=== PATIENT | female | born 1935 | race Caucasian/White ===

== ENCOUNTER 2018-12-18 19:59 | Emergency (ER) | payer MEDICARE, BC ==
--- NOTE | 2018-12-18 21:40 | EDM.PDOC ---
ED HPI GENERAL MEDICAL PROBLEM - General Chief Complaint: General Stated Complaint: [facility] Time Seen by Provider: 12/18/18 20:10 Source of Information: Reports: Patient, EMS, Half-Way Records History Limitations: Reports: No Limitations - History of Present Illness INITIAL COMMENTS - FREE TEXT/NARRATIVE: The patient presents by [facility] from [facility] for an unresponsive episode. The patient was found slumped over in her wheel chair. She was brought back to her bed. The nurse could not feel a pulse so she started CPR. She did about 5 compressions and the patient woke up. She is alert. She is a little confused but she does have dementia. She does not remember what happened. She has no complaints. She has no headache, fever, chills, cough, chest pain, shortness of breath, abdominal pain, nausea or vomiting. She has no pain upon palpation. Onset: Sudden Duration: Minutes: Improves with: Reports: None Worsens with: Reports: None Associated Symptoms: Reports: No Other Symptoms - Related Data Allergies Allergy/AdvReac Type Severity Reaction Status Date / Time labetalol Allergy Cannot Verified 12/18/18 20:11 Remember nortriptyline Allergy Cannot Verified 12/18/18 20:11 Remember Sulfa (Sulfonamide Allergy Cannot Verified 12/18/18 20:11 Antibiotics) Remember Home Meds: Home Meds Cephalexin [Keflex] 500 mg PO TID #21 capsule 12/18/18 [Rx] Potassium Chloride 10 meq PO DAILY #30 capsule.er 12/18/18 [Rx] Past Medical History Cardiovascular History: Reports: Heart Failure, High Cholesterol, Hypertension, Other (See Below) Other Cardiovascular History: anemia Respiratory History: Reports: Pneumonia, Recurrent Gastrointestinal History: Reports: Chronic Constipation, GERD Genitourinary History: Reports: Chronic Renal Insuffiency, Other (See Below) Other Genitourinary History: acute cystitis Social & Family History - Tobacco Use Smoking Status *Q: Never Smoker Second Hand Smoke Exposure: No - Caffeine Use Caffeine Use: Reports: Coffee - Recreational Drug Use Recreational Drug Use: No ED ROS GENERAL - Review of Systems Review Of Systems: See Below Constitutional: Reports: No Symptoms HEENT: Reports: No Symptoms Respiratory: Reports: No Symptoms Cardiovascular: Reports: No Symptoms Endocrine: Reports: No Symptoms GI/Abdominal: Reports: No Symptoms : Reports: No Symptoms Musculoskeletal: Reports: No Symptoms ED EXAM, GENERAL - Physical Exam Exam: See Below Exam Limited By: No Limitations General Appearance: Alert, No Apparent Distress Ears: Normal External Exam Nose: Normal Inspection Head: Atraumatic, Normocephalic Neck: Normal Inspection, Supple, Non-Tender Respiratory/Chest: No Respiratory Distress, Lungs Clear, Normal Breath Sounds Cardiovascular: Regular Rate, Rhythm, No Edema, No Murmur GI/Abdominal: Soft, Non-Tender, No Organomegaly, No Mass Back Exam: Normal Inspection Extremities: Normal Inspection EKG INTERPRETATION EKG Date: 12/18/18 Time: 20:45 Rhythm: NSR Rate (Beats/Min): 83 Dawson: Normal P-Wave: Present QRS: Normal ST-T: Normal QT: Normal Course - Vital Signs Last Recorded V/S: Last Vital Signs Temp 97.1 F 12/18/18 20:06 Pulse 83 12/18/18 20:06 Resp 18 12/18/18 20:06 BP 95/70 12/18/18 20:06 Pulse Ox 98 12/18/18 20:06 - Orders/Labs/Meds Orders: Active Orders 24 hr Category Date Time Status Cardiac Monitoring [RC] . DIRECTED Care 12/18/18 20:20 Active EKG Documentation Completion [RC] STAT Care 12/18/18 20:20 Active Peripheral IV Care [RC] . DIRECTED Care 12/18/18 21:41 Active Chest 1V Frontal [CR] Stat Exams 12/18/18 20:20 Taken Sodium Chloride 0.9% [Saline Flush] Med 12/18/18 21:41 Active 10 ml FLUSH ASDIRECTED PRN Peripheral IV Insertion Adult [OM.PC] Routine Oth 12/18/18 21:41 Ordered Medication Orders Sodium Chloride (Saline Flush) 10 ml FLUSH ASDIRECTED PRN PRN Reason: Keep Vein Open Last Admin: 12/18/18 22:12 Dose: 10 ml Labs: Laboratory Tests 12/18/18 12/18/18 12/18/18 Range/Units 20:40 20:42 21:10 WBC 10.96 H (3.98-10.04) K/mm3 RBC 4.52 (3.98-5.22) M/mm3 Hgb 13.4 (11.2-15.7) gm/L Hct 41.3 (34.1-44.9) % MCV 91.4 (79.4-94.8) fl MCH 29.6 (25.6-32.2) pg MCHC 32.4 (32.2-35.5) g/dl RDW Std Deviation 59.1 H (36.4-46.3) fL Plt Count 274 (182-369) K/mm3 MPV 10.1 (9.4-12.3) fl Neut % (Auto) 75.9 H (34.0-71.1) % Lymph % (Auto) 12.0 L (19.3-51.7) % Simpson % (Auto) 8.2 (4.7-12.5) % Eos % (Auto) 3.2 (0.7-5.8) Baso % (Auto) 0.3 (0.1-1.2) % Neut # (Auto) 8.32 H (1.56-6.13) K/mm3 Lymph # (Auto) 1.32 (1.18-3.74) K/mm3 Simpson # (Auto) 0.90 H (0.24-0.36) K/mm3 Eos # (Auto) 0.35 (0.04-0.36) K/mm3 Baso # (Auto) 0.03 (0.01-0.08) K/mm3 Sodium 144 (136-145) mEq/L Potassium 2.8 L (3.5-5.1) mEq/L Chloride 104 (98-107) mEq/L Carbon Dioxide 23 (21-32) mEq/L Anion Gap 19.8 H (5-15) BUN 40 H (7-18) mg/dL Creatinine 2.3 H (0.55-1.02) mg/dL Est Cr Clr Drug Dosing 13.31 mL/min Estimated GFR (MDRD) 20 (>60) mL/min BUN/Creatinine Ratio 17.4 (14-18) Glucose 107 (83-115) mg/dL Calcium 10.0 (8.5-10.1) mg/dL Total Bilirubin 0.9 (0.2-1.0) mg/dL AST 28 (15-37) U/L ALT 17 (14-59) U/L Alkaline Phosphatase 157 H (46-116) U/L Troponin I < 0.017 (0.00-0.056) ng/mL Total Protein 7.7 (6.4-8.2) g/dl Albumin 3.3 L (3.4-5.0) g/dl Globulin 4.4 gm/dL Albumin/Globulin Ratio 0.8 L (1-2) Urine Color Lanie H (Yellow) Urine Appearance Turbid H (Clear) Urine pH 7.0 (5.0-8.0) Ur Specific [place] 1.015 (1.005-1.030) Urine Protein 2+ H (Negative) Urine Glucose (UA) Negative (Negative) Urine Ketones Trace H (Negative) Urine Occult Blood 2+ H (Negative) Urine Nitrite Negative (Negative) Urine Bilirubin 1+ H (Negative) Urine Urobilinogen 0.2 (0.2-1.0) Ur Leukocyte Esterase 3+ H (Negative) Urine RBC 5-10 H (0-5) /hpf Urine WBC >100 H (0-5) /hpf Ur Epithelial Cells 0-5 (0-5) /hpf Urine Bacteria Many H (FEW) /hpf Urine Mucus Not seen (FEW) /hpf Meds: Medications Generic Name Dose Route Start Last Admin Trade Name Freq PRN Reason Stop Dose Admin Sodium Chloride 10 ml 12/18/18 21:41 12/18/18 22:12 Saline Flush FLUSH 10 ml ASDIRECTED PRN Administration Keep Vein Open Discontinued Medications Generic Name Dose Route Start Last Admin Trade Name Freq PRN Reason Stop Dose Admin Ceftriaxone Sodium 2 gm/ 100 mls @ 200 mls/hr 12/18/18 21:42 12/18/18 22:12 Sodium Chloride IV 12/18/18 22:11 200 mls/hr ONETIME ONE Administration Sodium Chloride 500 mls @ 1,000 mls/hr 12/18/18 21:41 12/18/18 22:11 Normal Saline IV 12/18/18 22:10 1,000 mls/hr .BOLUS ONE Administration Potassium Chloride 10 meq 12/18/18 22:22 Klor-Con 10 PO 12/18/18 22:23 ONETIME ONE - Re-Assessments/Exams Free Text/Narrative Re-Assessment/Exam: 12/18/18 21:39 I ordered an EKG, CXR and labs. Her EKG shows a NSR with no acute changes. Her CXR looks good. 12/18/18 21:40 Her WBC was elevated at 10.96. Her K was low at 2.8. Her creatinine was elevated at 2.3. Her anion gap was elevated at 19.8. Her troponin was normal. I am waiting on her UA now. 12/18/18 22:24 Her UA shows a a UTI. I obtained a culture. She was also dehydrated. I ordered a 500mL bolus and rocephin 2 grams IV. I also gave her a dose of potassium here. I will get her on a prescription for keflex 3 times per day for the UTI and potassium. Departure - Departure Time of Disposition: 10:25 Disposition: DC/Tfer to [facility] 63 Condition: Good Clinical Impression: Unresponsive episode, Dehydration, Renal insufficiency, Hypokalemia UTI (urinary tract infection) Qualifiers: Urinary tract infection type: acute cystitis Hematuria presence: without hematuria Qualified Code(s): N30.00 - Acute cystitis without hematuria - Discharge Information *PRESCRIPTION DRUG MONITORING PROGRAM REVIEWED*: No *COPY OF PRESCRIPTION DRUG MONITORING REPORT IN PATIENT HUSSAIN: No Prescriptions: Cephalexin [Keflex] 500 mg PO TID #21 capsule Potassium Chloride 10 meq PO DAILY #30 capsule.er Referrals: Evaristo Tian MD [Primary Care Provider] - 1 Week Forms: ED Department Discharge Additional Instructions: Drink plenty of fluids. Take the keflex 3 times per day for 1 week. Take the potassium daily. Take the rest of your meds as prescribed. Follow up with Dr Tian next week. Please return if you are worse. - My Orders Last 24 Hours: My Active Orders 12/18/18 20:20 Cardiac Monitoring [RC] . DIRECTED EKG Documentation Completion [RC] STAT Chest 1V Frontal [CR] Stat 12/18/18 21:41 Peripheral IV Care [RC] . DIRECTED Sodium Chloride 0.9% [Saline Flush] 10 ml FLUSH ASDIRECTED PRN Peripheral IV Insertion Adult [OM.PC] Routine - Assessment/Plan Last 24 Hours: My Active Orders 12/18/18 20:20 Cardiac Monitoring [RC] . DIRECTED EKG Documentation Completion [RC] STAT Chest 1V Frontal [CR] Stat 12/18/18 21:41 Peripheral IV Care [RC] . DIRECTED Sodium Chloride 0.9% [Saline Flush] 10 ml FLUSH ASDIRECTED PRN Peripheral IV Insertion Adult [OM.PC] Routine
[2018-12-18] MEDS ORDERED: Sodium Chloride 0.9% 500 ML IV ONE (21:41)
[2018-12-18] MEDS ORDERED: Sodium Chloride 0.9% 10 ML Syringe FLUSH PRN (21:41)
[2018-12-18] MEDS ORDERED: cefTRIAXone 2 GM in Sodium Chloride 0.9% 100 ML IV ONE (21:42)
[2018-12-18] MEDS ORDERED: Potassium Chloride 10 MEQ Tab.ER PO ONE (22:22)
--- NOTE | 2018-12-19 07:31 | CR ---
Chest: Portable view of the chest was obtained. Comparison: No prior chest x-ray. Heart size and mediastinum are within normal limits for portable technique. Lungs are clear. Bony structures are osteopenic. Fracture is noted within the proximal humerus with mild amount of callus, please correlate as to the age of this finding. Impression: 1. Proximal right humeral fracture as described above. 2. Nothing acute is otherwise seen on portable chest x-ray. Diagnostic code #3
== END 2018-12-18 23:55 ==
LOC: JD.ED 19:59
DX: E87.6 Hypokalemia (principal); E86.0 Dehydration; R41.0 Disorientation, unspecified; N30.00 Acute cystitis without hematuria; N28.9 Disorder of kidney and ureter, unspecified; Z88.8 Allergy status to other drugs, medicaments and biological substances; Z88.2 Allergy status to sulfonamides; Z79.899 Other long term (current) drug therapy
CPT/HCPCS: 36415; 71045; 80053; 81001; 84484; 85025; 87086; 93005; 96361; 96365; 99285; A9270; J0696; J7030; J7040; 87088; 87186; 93010; 99284

== ENCOUNTER 2019-01-23 16:07 | Inpatient (IN) | payer MEDICARE, BC ==
[2019-01-23] MEDS ORDERED: Sodium Chloride 0.9% 1,000 ML IV ONE ×2 (16:18→17:53)
--- NOTE | 2019-01-23 16:18 | EDM.PDOC ---
ED HPI GENERAL MEDICAL PROBLEM - General Chief Complaint: Neurological Problem Stated Complaint: [facility] Time Seen by Provider: 01/23/19 16:18 Source of Information: Reports: Patient - History of Present Illness INITIAL COMMENTS - FREE TEXT/NARRATIVE: Patient is brought here today from [facility] for evaluation of altered mental status, she is really not responding. Has not eaten or drank anything throughout the week. Her PCP Dr. Tian ordered a chemistry panel which demonstrated a sodium of 167. Patient unable to provide any history. Patient's , daughter and granddaughter provided more information. Apparently she was living at home last fall and doing well. Had a fall in November 12, 2018, had a femur fracture. 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 Was unable to care for herself and [facility]. Since then has declined significantly sign she has lucid moments but for the most part is quite demented. Over the past week she has not wanted to eat or drink anything. Transfers by Arlene lift. - Related Data Allergies Allergy/AdvReac Type Severity Reaction Status Date / Time labetalol Allergy Cannot Verified 12/18/18 20:11 Remember nortriptyline Allergy Cannot Verified 12/18/18 20:11 Remember Sulfa (Sulfonamide Allergy Cannot Verified 12/18/18 20:11 Antibiotics) Remember Home Meds: Home Meds Acetaminophen [Tylenol] 50 mg PO Q6H PRN 01/23/19 [History] Apixaban [Eliquis] 2.5 mg PO BID 01/23/19 [History] Bisacodyl [Dulcolax] 10 mg RC DAILY PRN 01/23/19 [History] Cyanocobalamin (Vitamin B-12) [Vitamin B-12] 1,000 mcg PO DAILY 01/23/19 [ History] Dronabinol [Marinol] 5 mg PO BID 01/23/19 [History] Lisinopril 5 mg PO DAILY 01/23/19 [History] Mirtazapine [Remeron] 15 mg PO BEDTIME 01/23/19 [History] Ondansetron [Zofran ODT] 4 mg SL Q6H PRN 01/23/19 [History] Potassium Chloride [Klor-Con 10] 10 meq PO DAILY 01/23/19 [History] Sennosides/Docusate Sodium [Senna Plus Tablet] 1 tab PO BID 01/23/19 [History] Sertraline [Zoloft] 25 mg PO BEDTIME 01/23/19 [History] Triamcinolone Acetonide [Triamcinolone Acetonide 0.1% Crm] 1 appful TOP BID PRN 01/23/19 [History] Ubidecarenone [Coenzyme Q10] 100 mg PO DAILY 01/23/19 [History] Past Medical History Cardiovascular History: Reports: Heart Failure, High Cholesterol, Hypertension, Other (See Below) Other Cardiovascular History: anemia Respiratory History: Reports: Pneumonia, Recurrent Gastrointestinal History: Reports: Chronic Constipation, GERD Genitourinary History: Reports: Chronic Renal Insuffiency, Other (See Below) Other Genitourinary History: acute cystitis Social & Family History - Caffeine Use Caffeine Use: Reports: Coffee ED ROS GENERAL - Review of Systems Review Of Systems: ROS reveals no pertinent complaints other than HPI. (Patient not responding to questions, ROS limited) Constitutional: Reports: Weakness, Fatigue, Decreased Appetite. Denies: Fever, Chills - Physical Exam Exam: See Below Exam Limited By: Altered Mental Status (Patient lethargic) General Appearance: Lethargic Throat/Mouth: Other (Dry mucous membranes) Head Exam: Atraumatic, Normocephalic Neck: Normal Inspection, Supple, Non-Tender. No: Lymphadenopathy (L), Lymphadenopathy (R) Respiratory/Chest: No Respiratory Distress, Lungs Clear, Other (Shallow breath sounds) Cardiovascular: Regular Rate, Rhythm, No Murmur GI/Abdominal: Soft, Abnormal Bowel Sounds (Hypoactive) Neuro Exam (Abbreviated): Unresponsive (Responds to pain) Skin Exam: Warm, Dry EKG INTERPRETATION EKG Date: 01/23/19 Time: 16:41 Rhythm: NSR Rate (Beats/Min): 107 Course - Vital Signs Last Recorded V/S: Last Vital Signs Temp 97.4 F 01/23/19 16:17 Pulse 116 H 01/23/19 16:17 Resp 18 01/23/19 16:17 BP 88/65 L 01/23/19 16:17 Pulse Ox 95 01/23/19 16:17 - Orders/Labs/Meds Orders: Active Orders 24 hr Category Date Time Status Patient Status [ADT] Routine ADT 01/23/19 18:46 Active Insert Duque Catheter [Insert Urinary Catheter] [OM.PC] Care 01/23/19 16:25 Ordered Stat Urinary Catheter Assessment [RC] ASDIRECTED Care 01/23/19 17:11 Active Chest 1V Frontal [CR] Stat Exams 01/23/19 16:33 Taken LACTATE DEHYDROGENASE,LDH [CHEM] Stat Lab 01/23/19 16:25 Received Medication Orders Lactated Ringer's (Ringers, Lactated) 1,000 mls @ 999 mls/hr IV ASDIRECTED FRANKLIN Stop: 01/23/19 21:33 Lactated Ringer's (Ringers, Lactated) 1,000 mls @ 150 mls/hr IV ASDIRECTED FRANKLIN Ceftriaxone Sodium 2 gm/ (Sodium Chloride) 100 mls @ 200 mls/hr IV Q24H FRANKLIN Labs: Laboratory Tests 01/23/19 01/23/19 01/23/19 Range/Units 16:25 16:25 16:25 WBC 22.45 H (3.98-10.04) K/mm3 RBC 5.55 H (3.98-5.22) M/mm3 Hgb 16.3 H (11.2-15.7) gm/L Hct 51.9 H (34.1-44.9) % MCV 93.5 (79.4-94.8) fl MCH 29.4 (25.6-32.2) pg MCHC 31.4 L (32.2-35.5) g/dl RDW Std Deviation 62.9 H (36.4-46.3) fL Plt Count 297 (182-369) K/mm3 MPV 11.8 (9.4-12.3) fl Neutrophils % (Manual) 84 H (40-60) % Band Neutrophils % 0 (0-10) % Lymphocytes % (Manual) 7 L (20-40) % Atypical Lymphs % 0 % Monocytes % (Manual) 9 (2-10) % Eosinophils % (Manual) 0 L (0.7-5.8) % Basophils % (Manual) 0 L (0.1-1.2) Platelet Estimate Adequate Polychromasia Few Anisocytosis 1+ slight Ovalocytes Few RBC Morph Comment Not Reportable Sodium 165 H* (136-145) mEq/L Potassium 3.6 (3.5-5.1) mEq/L Chloride 125 H (98-107) mEq/L Carbon Dioxide 24 (21-32) mEq/L Anion Gap 19.6 H (5-15) BUN 70 H (7-18) mg/dL Creatinine 3.1 H (0.55-1.02) mg/dL Est Cr Clr Drug Dosing 11.37 mL/min Estimated GFR (MDRD) 14 (>60) mL/min BUN/Creatinine Ratio 22.6 H (14-18) Glucose 176 H (83-115) mg/dL Calcium 10.8 H (8.5-10.1) mg/dL Magnesium 2.3 (1.8-2.4) mg/dl Total Bilirubin 1.2 H (0.2-1.0) mg/dL AST 123 H (15-37) U/L ALT 63 H (14-59) U/L Alkaline Phosphatase 132 H (46-116) U/L Troponin I 0.084 H* (0.00-0.056) ng/mL Total Protein 8.4 H (6.4-8.2) g/dl Albumin 3.6 (3.4-5.0) g/dl Globulin 4.8 gm/dL Albumin/Globulin Ratio 0.8 L (1-2) Urine Color (Yellow) Urine Appearance (Clear) Urine pH (5.0-8.0) Ur Specific [place] (1.005-1.030) Urine Protein (Negative) Urine Glucose (UA) (Negative) Urine Ketones (Negative) Urine Occult Blood (Negative) Urine Nitrite (Negative) Urine Bilirubin (Negative) Urine Urobilinogen (0.2-1.0) Ur Leukocyte Esterase (Negative) Urine RBC (0-5) /hpf Urine WBC (0-5) /hpf Urine WBC Clumps (NOT SEEN) /hpf Ur Epithelial Cells (0-5) /hpf Amorphous Sediment (NOT SEEN) /hpf Urine Bacteria (FEW) /hpf Urine Mucus (FEW) /hpf 01/23/19 Range/Units 16:30 WBC (3.98-10.04) K/mm3 RBC (3.98-5.22) M/mm3 Hgb (11.2-15.7) gm/L Hct (34.1-44.9) % MCV (79.4-94.8) fl MCH (25.6-32.2) pg MCHC (32.2-35.5) g/dl RDW Std Deviation (36.4-46.3) fL Plt Count (182-369) K/mm3 MPV (9.4-12.3) fl Neutrophils % (Manual) (40-60) % Band Neutrophils % (0-10) % Lymphocytes % (Manual) (20-40) % Atypical Lymphs % % Monocytes % (Manual) (2-10) % Eosinophils % (Manual) (0.7-5.8) % Basophils % (Manual) (0.1-1.2) Platelet Estimate Polychromasia Anisocytosis Ovalocytes RBC Morph Comment Sodium (136-145) mEq/L Potassium (3.5-5.1) mEq/L Chloride (98-107) mEq/L Carbon Dioxide (21-32) mEq/L Anion Gap (5-15) BUN (7-18) mg/dL Creatinine (0.55-1.02) mg/dL Est Cr Clr Drug Dosing mL/min Estimated GFR (MDRD) (>60) mL/min BUN/Creatinine Ratio (14-18) Glucose (83-115) mg/dL Calcium (8.5-10.1) mg/dL Magnesium (1.8-2.4) mg/dl Total Bilirubin (0.2-1.0) mg/dL AST (15-37) U/L ALT (14-59) U/L Alkaline Phosphatase (46-116) U/L Troponin I (0.00-0.056) ng/mL Total Protein (6.4-8.2) g/dl Albumin (3.4-5.0) g/dl Globulin gm/dL Albumin/Globulin Ratio (1-2) Urine Color Dark yellow (Yellow) Urine Appearance Turbid H (Clear) Urine pH 8.5 H (5.0-8.0) Ur Specific [place] 1.020 (1.005-1.030) Urine Protein 3+ H (Negative) Urine Glucose (UA) Negative (Negative) Urine Ketones 1+ H (Negative) Urine Occult Blood 3+ H (Negative) Urine Nitrite Negative (Negative) Urine Bilirubin 2+ H (Negative) Urine Urobilinogen 1.0 (0.2-1.0) Ur Leukocyte Esterase 3+ H (Negative) Urine RBC 30-40 H (0-5) /hpf Urine WBC 30-40 H (0-5) /hpf Urine WBC Clumps Few (NOT SEEN) /hpf Ur Epithelial Cells 5-10 H (0-5) /hpf Amorphous Sediment Many H (NOT SEEN) /hpf Urine Bacteria Many H (FEW) /hpf Urine Mucus Few (FEW) /hpf Meds: Medications Generic Name Dose Route Start Last Admin Trade Name Freq PRN Reason Stop Dose Admin Lactated Ringer's 1,000 mls @ 999 mls/hr 01/23/19 19:33 Ringers, Lactated IV 01/23/19 21:33 ASDIRECTED FRANKLIN Lactated Ringer's 1,000 mls @ 150 mls/hr 01/23/19 21:33 Ringers, Lactated IV ASDIRECTED FRANKLIN Ceftriaxone Sodium 2 gm/ 100 mls @ 200 mls/hr 01/24/19 15:00 Sodium Chloride IV Q24H FRANKLIN Discontinued Medications Generic Name Dose Route Start Last Admin Trade Name Freq PRN Reason Stop Dose Admin Sodium Chloride 1,000 mls @ 999 mls/hr 01/23/19 16:18 01/23/19 16:41 Normal Saline IV 01/23/19 17:18 999 mls/hr ONETIME ONE Administration Sodium Chloride 1,000 mls @ 999 mls/hr 01/23/19 17:53 01/23/19 18:01 Normal Saline IV 01/23/19 18:53 999 mls/hr ONETIME ONE Administration Ceftriaxone Sodium 2 gm/ 100 mls @ 200 mls/hr 01/23/19 18:19 01/23/19 18:39 Sodium Chloride IV 01/23/19 18:48 200 mls/hr ONETIME ONE Administration Lactated Ringer's 1,000 mls @ 999 mls/hr 01/23/19 18:33 01/23/19 19:57 Ringers, Lactated IV 01/23/19 19:33 999 mls/hr .BOLUS ONE Administration - Re-Assessments/Exams Free Text/Narrative Re-Assessment/Exam: Head CT demonstrates senescent changes. Opacified upper left maxillary sinus. No acute findings on CXR. Significant urinary tract infection. WBC 22,450. Lactate is pending, there is some problems with the lab machine. Creatinine of 3.1 GFR 14 BUN of 70. Sodium is 165. Anion gap 19.6. liver enzymes are elevated. Troponin 0.084. Discussed admission with Dr. Baptiste/hospitalist who agreed agrees to admit the patient. Patient is DNR/DNI. 01/23/19 20:34 01/23/19 20:45 Departure - Departure Time of Disposition: 18:46 Disposition: Admitted As Inpatient 66 Condition: Poor Clinical Impression: Dehydration, Hypernatremia, Altered mental status, Dementia UTI (urinary tract infection) Qualifiers: Urinary tract infection type: acute cystitis Hematuria presence: without hematuria Qualified Code(s): N30.00 - Acute cystitis without hematuria - Discharge Information - My Orders Last 24 Hours: My Active Orders 01/23/19 16:25 Insert Duque Catheter [Insert Urinary Catheter] [OM.PC] Stat LACTATE DEHYDROGENASE,LDH [CHEM] Stat 01/23/19 16:33 Chest 1V Frontal [CR] Stat 01/23/19 17:11 Urinary Catheter Assessment [RC] ASDIRECTED 01/23/19 18:46 Patient Status [ADT] Routine - Assessment/Plan Last 24 Hours: My Active Orders 01/23/19 16:25 Insert Duque Catheter [Insert Urinary Catheter] [OM.PC] Stat LACTATE DEHYDROGENASE,LDH [CHEM] Stat 01/23/19 16:33 Chest 1V Frontal [CR] Stat 01/23/19 17:11 Urinary Catheter Assessment [RC] ASDIRECTED 01/23/19 18:46 Patient Status [ADT] Routine
[2019-01-23] MEDS ORDERED: cefTRIAXone 2 GM Vial IVPUSH ONE (18:08)
--- NOTE | 2019-01-23 18:10 | CT ---
Head CT Technique: Multiple axial sections through the brain were obtained. Intravenous contrast was not utilized. Comparison: No prior intracranial imaging is available. Findings: Ventricles along with basal cisterns and sulci over convexities are moderately prominent. Diminished density is noted within the periventricular and subcortical white matter which is compatible with small vessel ischemic demyelination change. Minimal basal ganglia calcification is incidentally noted. Atherosclerotic calcification is noted within the carotid siphon. No evidence of intracranial hemorrhage. No midline shift or mass effect is seen. Bone window settings were reviewed which shows opacified upper left maxillary sinus. Other visualized sinuses are clear. No acute calvarial abnormality is appreciated. Impression: 1. Diffuse senescent change as noted above. 2. Opacified upper left maxillary sinus which is most likely chronic, please correlate that patient has no symptoms of acute sinusitis. 3. Nothing acute is otherwise seen on noncontrast head CT exam. Diagnostic code #3
[2019-01-23] MEDS ORDERED: cefTRIAXone 2 GM in Sodium Chloride 0.9% 100 ML IV ONE (18:19)
[2019-01-23] MEDS ORDERED: Lactated Ringers 1,000 ML IV ONE (18:33)
--- NOTE | 2019-01-23 19:16 | PCM.HP ---
H&P History of Present Illness - General Date of Service: 01/23/19 Admit Problem/Dx: Admission Diagnosis/Problem Admission Diagnosis/Problem Altered mental status Source of Information: EMS Notes Reviewed, Family, Provider History Limitations: Reports: Altered Mental Status - History of Present Illness Initial Comments - Free Text/Narative: 83 year old female with a history of dementia presents after over a week long episode of decreased oral intake. At the time of presentation, she is unable to open her eyes, follow simple commands. The history was provided by the ED provider and her family present, spouse and daughter. The patient had orthopedic surgery for her right upper and lower extremities. Since that time it is reported that she has never returned to her baseline mental functioning. She has profoundly abnormal electrolytes and is in acute renal failure. The patient will be admitted to [facility] with telemetry, she is a DNR/DNI. Onset of Symptoms: Reports: Gradual Symptom Onset Date: 11/26/18 Duration of Symptoms: Reports: Week(s):, Getting Worse Location: Reports: Generalized Improves with: Reports: Medication Worsens with: Reports: Other (not eating or drinking) Associated Symptoms: Reports: Weakness - Related Data Allergies/Adverse Reactions: Allergies Allergy/AdvReac Type Severity Reaction Status Date / Time labetalol Allergy Cannot Verified 12/18/18 20:11 Remember nortriptyline Allergy Cannot Verified 12/18/18 20:11 Remember Sulfa (Sulfonamide Allergy Cannot Verified 12/18/18 20:11 Antibiotics) Remember Home Medications: Home Meds Acetaminophen [Tylenol] 50 mg PO Q6H PRN 01/23/19 [History] Apixaban [Eliquis] 2.5 mg PO BID 01/23/19 [History] Bisacodyl [Dulcolax] 10 mg RC DAILY PRN 01/23/19 [History] Cyanocobalamin (Vitamin B-12) [Vitamin B-12] 1,000 mcg PO DAILY 01/23/19 [ History] Dronabinol [Marinol] 5 mg PO BID 01/23/19 [History] Lisinopril 5 mg PO DAILY 01/23/19 [History] Mirtazapine [Remeron] 15 mg PO BEDTIME 01/23/19 [History] Ondansetron [Zofran ODT] 4 mg SL Q6H PRN 01/23/19 [History] Potassium Chloride [Klor-Con 10] 10 meq PO DAILY 01/23/19 [History] Sennosides/Docusate Sodium [Senna Plus Tablet] 1 tab PO BID 01/23/19 [History] Sertraline [Zoloft] 25 mg PO BEDTIME 01/23/19 [History] Triamcinolone Acetonide [Triamcinolone Acetonide 0.1% Crm] 1 appful TOP BID PRN 01/23/19 [History] Ubidecarenone [Coenzyme Q10] 100 mg PO DAILY 01/23/19 [History] Past Medical History Cardiovascular History: Reports: Heart Failure, High Cholesterol, Hypertension, Other (See Below) Other Cardiovascular History: anemia Respiratory History: Reports: Pneumonia, Recurrent Gastrointestinal History: Reports: Chronic Constipation, GERD Other Gastrointestinal History: anorexia-failure to thrive Genitourinary History: Reports: Chronic Renal Insuffiency, Other (See Below) Other Genitourinary History: acute cystitis Musculoskeletal History: Reports: Other (See Below) Other Musculoskeletal History: fractured humerous;fractured right femur with pins and plate Psychiatric History: Reports: Dementia Social & Family History - Tobacco Use Smoking Status *Q: Never Smoker - Caffeine Use Caffeine Use: Reports: Coffee - Recreational Drug Use Recreational Drug Use: No H&P Review of Systems - Review of Systems: Review Of Systems: See Below General: Reports: Weakness HEENT: Reports: No Symptoms Pulmonary: Reports: No Symptoms Cardiovascular: Reports: No Symptoms Gastrointestinal: Reports: Anorexia Genitourinary: Reports: No Symptoms Musculoskeletal: Reports: No Symptoms Psychiatric: Reports: Other (lethargic) Neurological: Reports: No Symptoms Hematologic/Lymphatic: Reports: No Symptoms Immunologic: Reports: No Symptoms Exam - Exam Exam: See Below - Vital Signs Vital Signs: Last Vital Signs Temp 36.3 C 01/23/19 16:17 Pulse 116 H 01/23/19 16:17 Resp 18 01/23/19 16:17 BP 88/65 L 01/23/19 16:17 Pulse Ox 95 01/23/19 16:17 Weight: 68.039 kg - Exam General: Obtunded HEENT: Pupils Equal, Pupils Reactive Neck: Trachea Midline Lungs: Normal Respiratory Effort, Decreased Breath Sounds Cardiovascular: Regular Rate, Irregular Rhythm GI/Abdominal Exam: Soft, No Organomegaly, Abnormal Bowel Sounds (Female) Exam: Deferred Rectal (Female) Exam: Deferred Back Exam: Normal Inspection Extremities: Normal Inspection, Slow Capillary Refill Skin: Cool Neurological: Cranial Nerves Intact Neuro Extensive - Mental Status: Other (obtunded) Neuro Extensive - Motor, Sensory, Reflexes: CN II-XII Intact Psychiatric: Other (lethargy) - Patient Data Lab Results Last 24 hrs: Laboratory Results - last 24 hr 01/23/19 01/23/19 01/23/19 Range/Units 16:25 16:25 16:25 WBC 22.45 H (3.98-10.04) K/mm3 RBC 5.55 H (3.98-5.22) M/mm3 Hgb 16.3 H (11.2-15.7) gm/L Hct 51.9 H (34.1-44.9) % MCV 93.5 (79.4-94.8) fl MCH 29.4 (25.6-32.2) pg MCHC 31.4 L (32.2-35.5) g/dl RDW Std Deviation 62.9 H (36.4-46.3) fL Plt Count 297 (182-369) K/mm3 MPV 11.8 (9.4-12.3) fl Neutrophils % (Manual) 84 H (40-60) % Band Neutrophils % 0 (0-10) % Lymphocytes % (Manual) 7 L (20-40) % Atypical Lymphs % 0 % Monocytes % (Manual) 9 (2-10) % Eosinophils % (Manual) 0 L (0.7-5.8) % Basophils % (Manual) 0 L (0.1-1.2) Platelet Estimate Adequate Polychromasia Few Anisocytosis 1+ slight Ovalocytes Few RBC Morph Comment Not Reportable Sodium 165 H* (136-145) mEq/L Potassium 3.6 (3.5-5.1) mEq/L Chloride 125 H (98-107) mEq/L Carbon Dioxide 24 (21-32) mEq/L Anion Gap 19.6 H (5-15) BUN 70 H (7-18) mg/dL Creatinine 3.1 H (0.55-1.02) mg/dL Est Cr Clr Drug Dosing 11.37 mL/min Estimated GFR (MDRD) 14 (>60) mL/min BUN/Creatinine Ratio 22.6 H (14-18) Glucose 176 H (83-115) mg/dL Calcium 10.8 H (8.5-10.1) mg/dL Magnesium 2.3 (1.8-2.4) mg/dl Total Bilirubin 1.2 H (0.2-1.0) mg/dL AST 123 H (15-37) U/L ALT 63 H (14-59) U/L Alkaline Phosphatase 132 H (46-116) U/L Troponin I 0.084 H* (0.00-0.056) ng/mL Total Protein 8.4 H (6.4-8.2) g/dl Albumin 3.6 (3.4-5.0) g/dl Globulin 4.8 gm/dL Albumin/Globulin Ratio 0.8 L (1-2) Urine Color (Yellow) Urine Appearance (Clear) Urine pH (5.0-8.0) Ur Specific [place] (1.005-1.030) Urine Protein (Negative) Urine Glucose (UA) (Negative) Urine Ketones (Negative) Urine Occult Blood (Negative) Urine Nitrite (Negative) Urine Bilirubin (Negative) Urine Urobilinogen (0.2-1.0) Ur Leukocyte Esterase (Negative) Urine RBC (0-5) /hpf Urine WBC (0-5) /hpf Urine WBC Clumps (NOT SEEN) /hpf Ur Epithelial Cells (0-5) /hpf Amorphous Sediment (NOT SEEN) /hpf Urine Bacteria (FEW) /hpf Urine Mucus (FEW) /hpf 01/23/19 Range/Units 16:30 WBC (3.98-10.04) K/mm3 RBC (3.98-5.22) M/mm3 Hgb (11.2-15.7) gm/L Hct (34.1-44.9) % MCV (79.4-94.8) fl MCH (25.6-32.2) pg MCHC (32.2-35.5) g/dl RDW Std Deviation (36.4-46.3) fL Plt Count (182-369) K/mm3 MPV (9.4-12.3) fl Neutrophils % (Manual) (40-60) % Band Neutrophils % (0-10) % Lymphocytes % (Manual) (20-40) % Atypical Lymphs % % Monocytes % (Manual) (2-10) % Eosinophils % (Manual) (0.7-5.8) % Basophils % (Manual) (0.1-1.2) Platelet Estimate Polychromasia Anisocytosis Ovalocytes RBC Morph Comment Sodium (136-145) mEq/L Potassium (3.5-5.1) mEq/L Chloride (98-107) mEq/L Carbon Dioxide (21-32) mEq/L Anion Gap (5-15) BUN (7-18) mg/dL Creatinine (0.55-1.02) mg/dL Est Cr Clr Drug Dosing mL/min Estimated GFR (MDRD) (>60) mL/min BUN/Creatinine Ratio (14-18) Glucose (83-115) mg/dL Calcium (8.5-10.1) mg/dL Magnesium (1.8-2.4) mg/dl Total Bilirubin (0.2-1.0) mg/dL AST (15-37) U/L ALT (14-59) U/L Alkaline Phosphatase (46-116) U/L Troponin I (0.00-0.056) ng/mL Total Protein (6.4-8.2) g/dl Albumin (3.4-5.0) g/dl Globulin gm/dL Albumin/Globulin Ratio (1-2) Urine Color Dark yellow (Yellow) Urine Appearance Turbid H (Clear) Urine pH 8.5 H (5.0-8.0) Ur Specific [place] 1.020 (1.005-1.030) Urine Protein 3+ H (Negative) Urine Glucose (UA) Negative (Negative) Urine Ketones 1+ H (Negative) Urine Occult Blood 3+ H (Negative) Urine Nitrite Negative (Negative) Urine Bilirubin 2+ H (Negative) Urine Urobilinogen 1.0 (0.2-1.0) Ur Leukocyte Esterase 3+ H (Negative) Urine RBC 30-40 H (0-5) /hpf Urine WBC 30-40 H (0-5) /hpf Urine WBC Clumps Few (NOT SEEN) /hpf Ur Epithelial Cells 5-10 H (0-5) /hpf Amorphous Sediment Many H (NOT SEEN) /hpf Urine Bacteria Many H (FEW) /hpf Urine Mucus Few (FEW) /hpf Result Diagrams: 01/24/19 06:01 01/24/19 06:01 - Problem List (1) Altered mental status SNOMED Code(s): 356502082 ICD Code: R41.82 - ALTERED MENTAL STATUS, UNSPECIFIED Status: Acute Current Visit: Yes (2) Dehydration SNOMED Code(s): 32403131 ICD Code: E86.0 - DEHYDRATION Status: Acute Current Visit: Yes (3) Dementia SNOMED Code(s): 00288938 ICD Code: F03.90 - UNSPECIFIED DEMENTIA WITHOUT BEHAVIORAL DISTURBANCE Status: Acute Current Visit: Yes (4) Hypernatremia SNOMED Code(s): 30629140 ICD Code: E87.0 - HYPEROSMOLALITY AND HYPERNATREMIA Status: Acute Current Visit: Yes (5) UTI (urinary tract infection) SNOMED Code(s): 52450327 ICD Code: N39.0 - URINARY TRACT INFECTION, SITE NOT SPECIFIED Status: Acute Current Visit: Yes Qualifiers: Urinary tract infection type: acute cystitis Hematuria presence: without hematuria Qualified Code(s): N30.00 - Acute cystitis without hematuria (6) Hypokalemia SNOMED Code(s): 19703745 ICD Code: E87.6 - HYPOKALEMIA Status: Acute Current Visit: No (7) Renal insufficiency SNOMED Code(s): 874532254, 458800469 ICD Code: N28.9 - DISORDER OF KIDNEY AND URETER, UNSPECIFIED Status: Acute Current Visit: No (8) Unresponsive episode SNOMED Code(s): 163724803 ICD Code: R41.89 - OTH SYMPTOMS AND SIGNS W COGNITIVE FUNCTIONS AND AWARENESS Status: Acute Current Visit: No Problem List Initiated/Reviewed/Updated: Yes Orders Last 24hrs: Active Orders 24 hr Category Date Time Status Admission Status [Patient Status] [ADT] Routine ADT 01/23/19 18:47 Active Patient Status [ADT] Routine ADT 01/23/19 18:46 Active EKG 12 Lead [EKG Documentation Completion] [RC] STAT Care 01/23/19 16:32 Active Insert Duque Catheter [Insert Urinary Catheter] [OM.PC] Care 01/23/19 16:25 Ordered Stat Urinary Catheter Assessment [RC] ASDIRECTED Care 01/23/19 17:11 Active Chest 1V Frontal [CR] Stat Exams 01/23/19 16:33 Taken LACTATE DEHYDROGENASE,LDH [CHEM] Stat Lab 01/23/19 16:25 Received Lactated Ringers [Ringers, Lactated] 1,000 ml Med 01/23/19 18:33 Active IV .BOLUS Medication Orders Lactated Ringer's (Ringers, Lactated) 1,000 mls @ 999 mls/hr IV .BOLUS ONE Stop: 01/23/19 19:33 Assessment/Plan Comment:: Impression: Dementia with AMS Failure to thrive Dehydration, ARF History of CKD Hypernatremia AUTI Leukocytosis Chronic HTN HLD CHF A Fib Anemia GERD Plan: IVF IV ATBs Hold po meds Daily Labs Correct electrolytes Consult CM re: Comfort care cf [facility] w/ Telemetry DNR/DNI code status
[2019-01-23] MEDS ORDERED: Lactated Ringers 1,000 ML IV SCH (19:33)
[2019-01-23] MEDS: Lactated Ringers 1,000 ML IV SCH (22:17)
[2019-01-23] MEDS ORDERED: Acetaminophen 650 MG Supp RECTAL ONE (22:22)
[2019-01-24] MEDS: Acetaminophen 650 MG Supp RECTAL PRN ×2 (02:52→20:26)
[2019-01-24] MEDS: Lactated Ringers 1,000 ML IV SCH (05:07)
[2019-01-24] MEDS ORDERED: Metoprolol Tartrate 5 MG/5 ML SDV ONE (05:56)
[2019-01-24] MEDS ORDERED: Diltiazem 125 MG in Sodium Chloride 0.9% 100 ML IV SCH (06:15)
[2019-01-24] MEDS ORDERED: Diltiazem 125 MG/25 ML SDV ONE (06:18)
[2019-01-24] MEDS ORDERED: Metoprolol Tartrate 5 MG/5 ML SDV IVPUSH PRN (06:39)
[2019-01-24] MEDS ORDERED: Magnesium Sulfate/Water 4 GM in Premix Bag 1 BAG IV ONE (07:37)
--- NOTE | 2019-01-24 07:49 | CR ---
Chest: Portable view of the chest was obtained. Comparison: Prior chest x-ray of 01/23/19. Heart size is within normal limits. Moderately large hiatal hernia is noted. Tortuous thoracic aorta is seen. Central lung markings are slightly increased believed to be related to technique. Lungs are felt to be free of acute parenchymal densities. Old surgical neck fracture is noted within the right humerus. Impression: 1. Incidental findings. Nothing acute is appreciated. Diagnostic code #2
[2019-01-24] MEDS ORDERED: Dextrose 5%-0.9% NaCl 1,000 ML IV SCH (08:00)
[2019-01-24] MEDS: Dextrose 5% in Water 1,000 ML IV SCH ×2 (08:28→18:03)
[2019-01-24] MEDS ORDERED: Morphine 2 MG/ML Syringe IVPUSH ONE (09:07)
[2019-01-24] MEDS: fentaNYL 12 MCG/HR Transdermal Patch TRDERM SCH (09:18)
--- NOTE | 2019-01-24 10:41 | PCM.PN ---
- General Info Date of Service: 01/24/19 Subjective Update: Patient appears uncomfortable; discussed code status, she is now, DNR/DNI- Comfort care, family meeting was 20 minutes. Patient had rapid response, was moved to the ICU for A Fib with RVR and started on Cardizem drip.. Functional Status: Reports: Urinating - Review of Systems General: Reports: Weakness HEENT: Reports: No Symptoms Pulmonary: Reports: No Symptoms Cardiovascular: Reports: No Symptoms Gastrointestinal: Reports: No Symptoms Genitourinary: Reports: No Symptoms Musculoskeletal: Reports: No Symptoms Skin: Reports: No Symptoms Neurological: Reports: No Symptoms Psychiatric: Reports: No Symptoms - Patient Data Vitals - Most Recent: Last Vital Signs Temp 36.1 C 01/24/19 08:06 Pulse 87 01/24/19 10:00 Resp 17 01/24/19 09:00 BP 93/47 L 01/24/19 10:00 Pulse Ox 100 01/24/19 09:00 Weight - Most Recent: 65.136 kg I&O - Last 24 Hours: Intake & Output 01/23/19 01/24/19 01/24/19 22:59 06:59 14:59 Intake Total 1999 686 Balance 1999 686 Lab Results Last 24 Hours: Laboratory Results - last 24 hr 01/23/19 01/23/19 01/23/19 Range/Units 16:25 16:25 16:25 WBC 22.45 H (3.98-10.04) K/mm3 RBC 5.55 H (3.98-5.22) M/mm3 Hgb 16.3 H (11.2-15.7) gm/L Hct 51.9 H (34.1-44.9) % MCV 93.5 (79.4-94.8) fl MCH 29.4 (25.6-32.2) pg MCHC 31.4 L (32.2-35.5) g/dl RDW Std Deviation 62.9 H (36.4-46.3) fL Plt Count 297 (182-369) K/mm3 MPV 11.8 (9.4-12.3) fl Neut % (Auto) (34.0-71.1) % Lymph % (Auto) (19.3-51.7) % [place] % (Auto) (4.7-12.5) % Eos % (Auto) (0.7-5.8) Baso % (Auto) (0.1-1.2) % Neut # (Auto) (1.56-6.13) K/mm3 Lymph # (Auto) (1.18-3.74) K/mm3 [place] # (Auto) (0.24-0.36) K/mm3 Eos # (Auto) (0.04-0.36) K/mm3 Baso # (Auto) (0.01-0.08) K/mm3 Neutrophils % (Manual) 84 H (40-60) % Band Neutrophils % 0 (0-10) % Lymphocytes % (Manual) 7 L (20-40) % Atypical Lymphs % 0 % Monocytes % (Manual) 9 (2-10) % Eosinophils % (Manual) 0 L (0.7-5.8) % Basophils % (Manual) 0 L (0.1-1.2) Manual Slide Review Platelet Estimate Adequate Polychromasia Few Anisocytosis 1+ slight Ovalocytes Few RBC Morph Comment Not Reportable Sodium 165 H* (136-145) mEq/L Potassium 3.6 (3.5-5.1) mEq/L Chloride 125 H (98-107) mEq/L Carbon Dioxide 24 (21-32) mEq/L Anion Gap 19.6 H (5-15) BUN 70 H (7-18) mg/dL Creatinine 3.1 H (0.55-1.02) mg/dL Est Cr Clr Drug Dosing 11.37 mL/min Estimated GFR (MDRD) 14 (>60) mL/min BUN/Creatinine Ratio 22.6 H (14-18) Glucose 176 H (83-115) mg/dL Lactic Acid (0.4-2.0) mmol/L Calcium 10.8 H (8.5-10.1) mg/dL Magnesium 2.3 (1.8-2.4) mg/dl Total Bilirubin 1.2 H (0.2-1.0) mg/dL AST 123 H (15-37) U/L ALT 63 H (14-59) U/L Alkaline Phosphatase 132 H (46-116) U/L Troponin I 0.084 H* (0.00-0.056) ng/mL C-Reactive Protein (<1.0) mg/dL Total Protein 8.4 H (6.4-8.2) g/dl Albumin 3.6 (3.4-5.0) g/dl Globulin 4.8 gm/dL Albumin/Globulin Ratio 0.8 L (1-2) Urine Color (Yellow) Urine Appearance (Clear) Urine pH (5.0-8.0) Ur Specific [place] (1.005-1.030) Urine Protein (Negative) Urine Glucose (UA) (Negative) Urine Ketones (Negative) Urine Occult Blood (Negative) Urine Nitrite (Negative) Urine Bilirubin (Negative) Urine Urobilinogen (0.2-1.0) Ur Leukocyte Esterase (Negative) Urine RBC (0-5) /hpf Urine WBC (0-5) /hpf Urine WBC Clumps (NOT SEEN) /hpf Ur Epithelial Cells (0-5) /hpf Amorphous Sediment (NOT SEEN) /hpf Urine Bacteria (FEW) /hpf Urine Mucus (FEW) /hpf MRSA (PCR) 01/23/19 01/23/19 01/24/19 Range/Units 16:30 23:39 06:01 WBC 20.62 H (3.98-10.04) K/mm3 RBC 4.66 (3.98-5.22) M/mm3 Hgb 13.9 (11.2-15.7) gm/L Hct 44.3 (34.1-44.9) % MCV 95.1 H (79.4-94.8) fl MCH 29.8 (25.6-32.2) pg MCHC 31.4 L (32.2-35.5) g/dl RDW Std Deviation 63.3 H (36.4-46.3) fL Plt Count 124 L (182-369) K/mm3 MPV 12.0 (9.4-12.3) fl Neut % (Auto) 82.6 H (34.0-71.1) % Lymph % (Auto) 8.0 L (19.3-51.7) % [place] % (Auto) 8.9 (4.7-12.5) % Eos % (Auto) 0 L (0.7-5.8) Baso % (Auto) 0.1 (0.1-1.2) % Neut # (Auto) 17.02 H (1.56-6.13) K/mm3 Lymph # (Auto) 1.65 (1.18-3.74) K/mm3 [place] # (Auto) 1.83 H (0.24-0.36) K/mm3 Eos # (Auto) 0.01 L (0.04-0.36) K/mm3 Baso # (Auto) 0.03 (0.01-0.08) K/mm3 Neutrophils % (Manual) (40-60) % Band Neutrophils % (0-10) % Lymphocytes % (Manual) (20-40) % Atypical Lymphs % % Monocytes % (Manual) (2-10) % Eosinophils % (Manual) (0.7-5.8) % Basophils % (Manual) (0.1-1.2) Manual Slide Review Abnormal smear Platelet Estimate Polychromasia Anisocytosis Ovalocytes RBC Morph Comment Sodium (136-145) mEq/L Potassium (3.5-5.1) mEq/L Chloride (98-107) mEq/L Carbon Dioxide (21-32) mEq/L Anion Gap (5-15) BUN (7-18) mg/dL Creatinine (0.55-1.02) mg/dL Est Cr Clr Drug Dosing mL/min Estimated GFR (MDRD) (>60) mL/min BUN/Creatinine Ratio (14-18) Glucose (83-115) mg/dL Lactic Acid (0.4-2.0) mmol/L Calcium (8.5-10.1) mg/dL Magnesium (1.8-2.4) mg/dl Total Bilirubin (0.2-1.0) mg/dL AST (15-37) U/L ALT (14-59) U/L Alkaline Phosphatase (46-116) U/L Troponin I (0.00-0.056) ng/mL C-Reactive Protein (<1.0) mg/dL Total Protein (6.4-8.2) g/dl Albumin (3.4-5.0) g/dl Globulin gm/dL Albumin/Globulin Ratio (1-2) Urine Color Dark yellow (Yellow) Urine Appearance Turbid H (Clear) Urine pH 8.5 H (5.0-8.0) Ur Specific [place] 1.020 (1.005-1.030) Urine Protein 3+ H (Negative) Urine Glucose (UA) Negative (Negative) Urine Ketones 1+ H (Negative) Urine Occult Blood 3+ H (Negative) Urine Nitrite Negative (Negative) Urine Bilirubin 2+ H (Negative) Urine Urobilinogen 1.0 (0.2-1.0) Ur Leukocyte Esterase 3+ H (Negative) Urine RBC 30-40 H (0-5) /hpf Urine WBC 30-40 H (0-5) /hpf Urine WBC Clumps Few (NOT SEEN) /hpf Ur Epithelial Cells 5-10 H (0-5) /hpf Amorphous Sediment Many H (NOT SEEN) /hpf Urine Bacteria Many H (FEW) /hpf Urine Mucus Few (FEW) /hpf MRSA (PCR) Negative 01/24/19 01/24/19 Range/Units 06:01 06:51 WBC (3.98-10.04) K/mm3 RBC (3.98-5.22) M/mm3 Hgb (11.2-15.7) gm/L Hct (34.1-44.9) % MCV (79.4-94.8) fl MCH (25.6-32.2) pg MCHC (32.2-35.5) g/dl RDW Std Deviation (36.4-46.3) fL Plt Count (182-369) K/mm3 MPV (9.4-12.3) fl Neut % (Auto) (34.0-71.1) % Lymph % (Auto) (19.3-51.7) % [place] % (Auto) (4.7-12.5) % Eos % (Auto) (0.7-5.8) Baso % (Auto) (0.1-1.2) % Neut # (Auto) (1.56-6.13) K/mm3 Lymph # (Auto) (1.18-3.74) K/mm3 [place] # (Auto) (0.24-0.36) K/mm3 Eos # (Auto) (0.04-0.36) K/mm3 Baso # (Auto) (0.01-0.08) K/mm3 Neutrophils % (Manual) (40-60) % Band Neutrophils % (0-10) % Lymphocytes % (Manual) (20-40) % Atypical Lymphs % % Monocytes % (Manual) (2-10) % Eosinophils % (Manual) (0.7-5.8) % Basophils % (Manual) (0.1-1.2) Manual Slide Review Platelet Estimate Polychromasia Anisocytosis Ovalocytes RBC Morph Comment Sodium 162 H* (136-145) mEq/L Potassium 3.2 L (3.5-5.1) mEq/L Chloride 127 H (98-107) mEq/L Carbon Dioxide 21 (21-32) mEq/L Anion Gap 17.2 H (5-15) BUN 58 H (7-18) mg/dL Creatinine 2.3 H (0.55-1.02) mg/dL Est Cr Clr Drug Dosing 14.66 mL/min Estimated GFR (MDRD) 20 (>60) mL/min BUN/Creatinine Ratio 25.2 H (14-18) Glucose 110 (83-115) mg/dL Lactic Acid 2.2 H (0.4-2.0) mmol/L Calcium 8.8 (8.5-10.1) mg/dL Magnesium 1.6 L (1.8-2.4) mg/dl Total Bilirubin (0.2-1.0) mg/dL AST (15-37) U/L ALT (14-59) U/L Alkaline Phosphatase (46-116) U/L Troponin I 0.094 H* (0.00-0.056) ng/mL C-Reactive Protein 12.3 H* (<1.0) mg/dL Total Protein (6.4-8.2) g/dl Albumin (3.4-5.0) g/dl Globulin gm/dL Albumin/Globulin Ratio (1-2) Urine Color (Yellow) Urine Appearance (Clear) Urine pH (5.0-8.0) Ur Specific [place] (1.005-1.030) Urine Protein (Negative) Urine Glucose (UA) (Negative) Urine Ketones (Negative) Urine Occult Blood (Negative) Urine Nitrite (Negative) Urine Bilirubin (Negative) Urine Urobilinogen (0.2-1.0) Ur Leukocyte Esterase (Negative) Urine RBC (0-5) /hpf Urine WBC (0-5) /hpf Urine WBC Clumps (NOT SEEN) /hpf Ur Epithelial Cells (0-5) /hpf Amorphous Sediment (NOT SEEN) /hpf Urine Bacteria (FEW) /hpf Urine Mucus (FEW) /hpf MRSA (PCR) [place] Results Last 24 Hours: Microbiology 01/24/19 09:30 Influenza Type A Antigen Screen - Final Nasal, Unspecified NEGATIVE INFLUENZA A VIRUS AG Influenza Type B Antigen Screen - Final NEGATIVE INFLUENZA B VIRUS AG 01/23/19 16:25 Urine Culture - Preliminary Urine, Catheterized Gram Negative Rods 01/23/19 23:20 Anaerobic Blood Culture - Final Blood - Venous Med Orders - Current: Current Medications Acetaminophen (Tylenol) 600 mg RECTAL Q4H PRN PRN Reason: Pain/Fever Last Admin: 01/24/19 02:52 Dose: 600 mg Fentanyl (Duragesic) 12 mcg TRDERM Q72H [facility] Last Admin: 01/24/19 09:18 Dose: 12 mcg Lactated Ringer's (Ringers, Lactated) 1,000 mls @ 150 mls/hr IV ASDIRECTED [facility] Last Infusion: 01/24/19 07:36 Dose: 999 mls/hr Ceftriaxone Sodium 2 gm/ (Sodium Chloride) 100 mls @ 200 mls/hr IV Q24H [facility] Diltiazem HCl 125 mg/ Sodium (Chloride) 125 mls @ 5 mls/hr IV TITRATE [facility]; Protocol Last Admin: 01/24/19 06:22 Dose: 10 mg/hr, 10 mls/hr Dextrose/Water (Dextrose 5% In Water) 1,000 mls @ 100 mls/hr IV ASDIRECTED [facility] Last Admin: 01/24/19 08:28 Dose: 100 mls/hr Metoprolol Tartrate (Lopressor) 5 mg IVPUSH Q6H PRN PRN Reason: Tachycardia Miscellaneous Information (Remove Patch) 1 ea TRDERM Q72H [facility] Discontinued Medications Acetaminophen (Tylenol) 600 mg RECTAL NOW ONE Stop: 01/23/19 22:23 Last Admin: 01/23/19 22:28 Dose: 600 mg Diltiazem HCl (Diltiazem) Confirm Administered Dose 125 mg .ROUTE .STK-MED ONE Stop: 01/24/19 06:19 Last Admin: 01/24/19 06:21 Dose: Not Given Sodium Chloride (Normal Saline) 1,000 mls @ 999 mls/hr IV ONETIME ONE Stop: 01/23/19 17:18 Last Admin: 01/23/19 16:41 Dose: 999 mls/hr Sodium Chloride (Normal Saline) 1,000 mls @ 999 mls/hr IV ONETIME ONE Stop: 01/23/19 18:53 Last Admin: 01/23/19 18:01 Dose: 999 mls/hr Ceftriaxone Sodium 2 gm/ (Sodium Chloride) 100 mls @ 200 mls/hr IV ONETIME ONE Stop: 01/23/19 18:48 Last Admin: 01/23/19 18:39 Dose: 200 mls/hr Lactated Ringer's (Ringers, Lactated) 1,000 mls @ 999 mls/hr IV .BOLUS ONE Stop: 01/23/19 19:33 Last Admin: 01/23/19 19:57 Dose: 999 mls/hr Lactated Ringer's (Ringers, Lactated) 1,000 mls @ 999 mls/hr IV ASDIRECTED [facility] Stop: 01/23/19 21:33 Last Admin: 01/23/19 21:40 Dose: 999 mls/hr Magnesium Sulfate 4 gm/ Premix 100 mls @ 25 mls/hr IV ONETIME ONE Stop: 01/24/19 07:38 Last Admin: 01/24/19 08:27 Dose: 25 mls/hr Metoprolol Tartrate (Lopressor) Confirm Administered Dose 5 mg .ROUTE .STK-MED ONE Stop: 01/24/19 05:57 Last Admin: 01/24/19 05:58 Dose: 5 mg Morphine Sulfate (Morphine) 1 mg IVPUSH ONETIME ONE Stop: 01/24/19 09:08 Last Admin: 01/24/19 09:17 Dose: 1 mg - Exam Quality Assessment: Supplemental Oxygen, DVT Prophylaxis General: Mild Distress HEENT: Pupils Equal, Pupils Reactive Neck: Trachea Midline Lungs: Clear to Auscultation, Normal Respiratory Effort Cardiovascular: Regular Rate, Irregular Rhythm, Tachycardia GI/Abdominal Exam: Non-Tender, No Organomegaly, No Distention, No Abnormal Bruit (Female) Exam: Deferred Back Exam: Normal Inspection Extremities: Normal Range of Motion, No Pedal Edema, Normal Capillary Refill Skin: Cool Neurological: No New Focal Deficit Psy/Mental Status: Other (lethargic) - Problem List Review Problem List Initiated/Reviewed/Updated: Yes - My Orders Last 24 Hours: My Active Orders 01/23/19 21:33 Lactated Ringers [Ringers, Lactated] 1,000 ml IV ASDIRECTED 01/24/19 00:04 CULTURE BLOOD [BC] Stat Blood Culture x2 Reflex Set [OM.PC] Stat 01/24/19 02:40 Acetaminophen [Tylenol] 600 mg RECTAL Q4H PRN 01/24/19 06:13 Patient Status [ADT] Routine 01/24/19 06:15 Diltiazem 125 mg Sodium Chloride 0.9% [Normal Saline] 100 ml IV TITRATE 01/24/19 06:39 Metoprolol Tartrate [Lopressor] 5 mg IVPUSH Q6H PRN 01/24/19 08:00 Dextrose 5% in Water 1,000 ml IV ASDIRECTED EKG 12 Lead [EK] Routine 01/24/19 08:50 CULTURE BLOOD [BC] Stat 01/24/19 09:00 CULTURE URINE [RM] Routine 01/24/19 10:00 fentaNYL [Duragesic] 12 mcg TRDERM Q72H 01/24/19 15:00 cefTRIAXone [Rocephin] 2 gm Sodium Chloride 0.9% [Normal Saline] 100 ml IV Q24H 01/25/19 05:00 BMP [BASIC METABOLIC PANEL,BMP] [CHEM] DAILY CBC WITH AUTO DIFF [HEME] DAILY CRP [C-REACTIVE PROTEIN] [CHEM] DAILY LACTIC ACID [CHEM] DAILY MAGNESIUM [CHEM] DAILY 01/26/19 05:00 BMP [BASIC METABOLIC PANEL,BMP] [CHEM] DAILY CBC WITH AUTO DIFF [HEME] DAILY CRP [C-REACTIVE PROTEIN] [CHEM] DAILY LACTIC ACID [CHEM] DAILY MAGNESIUM [CHEM] DAILY 01/27/19 05:00 BMP [BASIC METABOLIC PANEL,BMP] [CHEM] DAILY CBC WITH AUTO DIFF [HEME] DAILY CRP [C-REACTIVE PROTEIN] [CHEM] DAILY LACTIC ACID [CHEM] DAILY MAGNESIUM [CHEM] DAILY 01/27/19 10:00 Remove Patch 1 ea TRDERM Q72H 01/28/19 05:00 BMP [BASIC METABOLIC PANEL,BMP] [CHEM] DAILY CBC WITH AUTO DIFF [HEME] DAILY CRP [C-REACTIVE PROTEIN] [CHEM] DAILY LACTIC ACID [CHEM] DAILY MAGNESIUM [CHEM] DAILY - Plan Plan:: Impression: Dementia with AMS Failure to thrive Dehydration, ARF History of CKD Hypernatremia-->slow improvement, will change IVF to D5W has received 4 liters of IVF with current maintenance rate AUTI Leukocytosis A Fib with RVR-->started on cardizem drip Chronic HTN HLD CHF A Fib Anemia GERD Plan: IVF IV ATBs Hold po meds Daily Labs Correct electrolytes Consult CM/SWre: Comfort care cf Hospice [place] w/ Telemetry DNR/DNI code status-->now Comfort care, wish to discuss Hospice care with CM/SW on 01/26/19. Anticipate return to [facility] on Saturday as HC.
[2019-01-24] MEDS: cefTRIAXone 2 GM in Sodium Chloride 0.9% 100 ML IV SCH (14:58)
--- NOTE | 2019-01-24 15:18 | CR ---
Chest: Portable view of the chest was obtained. Comparison: Prior chest x-ray of 12/18/18. Probable hiatal hernia is present behind the heart. Heart does not appear enlarged. Tortuous thoracic aorta seen. Small granuloma noted within the left upper lung. Lungs otherwise are clear. Previous fracture is noted within the proximal right humerus. Impression: 1. Nothing acute is seen on portable chest x-ray. Diagnostic code #2
[2019-01-24] MEDS: Morphine 2 MG/ML Syringe IVPUSH PRN (18:02)
[2019-01-24] MEDS: Potassium Chloride 10 MEQ in Premix Bag 1 BAG IV SCH ×2 (20:21→21:44)
--- NOTE | 2019-01-25 09:52 | PCM.PN ---
- General Info Date of Service: 01/25/19 Subjective Update: Family meeting answered at bedside; probable DC on 01/27/19. Will need discussion on best choice of care for patient ie comfort care cf hospice at [place]. Functional Status: Reports: Pain Controlled (improved), Tolerating Diet (NPO) - Review of Systems General: Reports: No Symptoms HEENT: Reports: No Symptoms Pulmonary: Reports: No Symptoms Cardiovascular: Reports: No Symptoms Gastrointestinal: Reports: No Symptoms Genitourinary: Reports: No Symptoms Musculoskeletal: Reports: No Symptoms Skin: Reports: No Symptoms Neurological: Reports: No Symptoms Psychiatric: Reports: No Symptoms - Patient Data Vitals - Most Recent: Last Vital Signs Temp 37.0 C 01/25/19 04:02 Pulse 78 01/25/19 04:02 Resp 14 01/25/19 04:02 BP 95/62 01/25/19 04:02 Pulse Ox 97 01/25/19 04:02 Weight - Most Recent: 65.136 kg Lab Results Last 24 Hours: Laboratory Results - last 24 hr 01/25/19 01/25/19 01/25/19 Range/Units 06:10 06:10 06:10 WBC 16.49 H (3.98-10.04) K/mm3 RBC 3.98 (3.98-5.22) M/mm3 Hgb 12 (11.2-15.7) gm/L Hct 37.7 (34.1-44.9) % MCV 94.7 (79.4-94.8) fl MCH 30.2 (25.6-32.2) pg MCHC 31.8 L (32.2-35.5) g/dl RDW Std Deviation 60.8 H (36.4-46.3) fL Plt Count 126 L (182-369) K/mm3 MPV 11.4 (9.4-12.3) fl Neut % (Auto) 80.6 H (34.0-71.1) % Lymph % (Auto) 11.0 L (19.3-51.7) % [place] % (Auto) 4.9 (4.7-12.5) % Eos % (Auto) 3.0 (0.7-5.8) Baso % (Auto) 0.1 (0.1-1.2) % Neut # (Auto) 13.29 H (1.56-6.13) K/mm3 Lymph # (Auto) 1.81 (1.18-3.74) K/mm3 [place] # (Auto) 0.81 H (0.24-0.36) K/mm3 Eos # (Auto) 0.49 H (0.04-0.36) K/mm3 Baso # (Auto) 0.02 (0.01-0.08) K/mm3 Manual Slide Review Abnormal smear Sodium 150 H (136-145) mEq/L Potassium 3.0 L (3.5-5.1) mEq/L Chloride 118 H (98-107) mEq/L Carbon Dioxide 22 (21-32) mEq/L Anion Gap 13.0 (5-15) BUN 47 H (7-18) mg/dL Creatinine 1.8 H (0.55-1.02) mg/dL Est Cr Clr Drug Dosing 18.73 mL/min Estimated GFR (MDRD) 27 (>60) mL/min BUN/Creatinine Ratio 26.1 H (14-18) Glucose 118 H (83-115) mg/dL Lactic Acid 2.6 H (0.4-2.0) mmol/L Calcium 8.3 L (8.5-10.1) mg/dL Magnesium 2.2 (1.8-2.4) mg/dl C-Reactive Protein 18.6 H* (<1.0) mg/dL [place] Results Last 24 Hours: Microbiology 01/24/19 08:50 Aerobic Blood Culture - Preliminary Blood - Venous - Lab Draw NO GROWTH AFTER 1 DAY Anaerobic Blood Culture - Final 01/23/19 23:20 Aerobic Blood Culture - Preliminary Blood - Venous NO GROWTH AFTER 1 DAY Anaerobic Blood Culture - Final 01/24/19 09:30 Influenza Type A Antigen Screen - Final Nasal, Unspecified NEGATIVE INFLUENZA A VIRUS AG Influenza Type B Antigen Screen - Final NEGATIVE INFLUENZA B VIRUS AG 01/23/19 16:25 Urine Culture - Preliminary Urine, Catheterized Gram Negative Rods Med Orders - Current: Current Medications Acetaminophen (Tylenol) 600 mg RECTAL Q4H PRN PRN Reason: Pain/Fever Last Admin: 01/24/19 20:26 Dose: 600 mg Fentanyl (Duragesic) 12 mcg TRDERM Q72H [facility] Last Admin: 01/24/19 09:18 Dose: 12 mcg Ceftriaxone Sodium 2 gm/ (Sodium Chloride) 100 mls @ 200 mls/hr IV Q24H [facility] Last Admin: 01/24/19 14:58 Dose: 200 mls/hr Dextrose/Water (Dextrose 5% In Water) 1,000 mls @ 100 mls/hr IV ASDIRECTED [facility] Last Admin: 01/24/19 18:03 Dose: 100 mls/hr Lorazepam (Ativan) 0.25 mg IVPUSH Q6H PRN PRN Reason: Anxiety Metoprolol Tartrate (Lopressor) 5 mg IVPUSH Q6H PRN PRN Reason: Tachycardia Miscellaneous Information (Remove Patch) 1 ea TRDERM Q72H [facility] Morphine Sulfate (Morphine) 1 mg IVPUSH Q2H PRN PRN Reason: Pain (moderate 4-6) Last Admin: 01/24/19 18:02 Dose: 1 mg Discontinued Medications Acetaminophen (Tylenol) 600 mg RECTAL NOW ONE Stop: 01/23/19 22:23 Last Admin: 01/23/19 22:28 Dose: 600 mg Diltiazem HCl (Diltiazem) Confirm Administered Dose 125 mg .ROUTE .STK-MED ONE Stop: 01/24/19 06:19 Last Admin: 01/24/19 06:21 Dose: Not Given Sodium Chloride (Normal Saline) 1,000 mls @ 999 mls/hr IV ONETIME ONE Stop: 01/23/19 17:18 Last Admin: 01/23/19 16:41 Dose: 999 mls/hr Sodium Chloride (Normal Saline) 1,000 mls @ 999 mls/hr IV ONETIME ONE Stop: 01/23/19 18:53 Last Admin: 01/23/19 18:01 Dose: 999 mls/hr Ceftriaxone Sodium 2 gm/ (Sodium Chloride) 100 mls @ 200 mls/hr IV ONETIME ONE Stop: 01/23/19 18:48 Last Admin: 01/23/19 18:39 Dose: 200 mls/hr Lactated Ringer's (Ringers, Lactated) 1,000 mls @ 999 mls/hr IV .BOLUS ONE Stop: 01/23/19 19:33 Last Admin: 01/23/19 19:57 Dose: 999 mls/hr Lactated Ringer's (Ringers, Lactated) 1,000 mls @ 999 mls/hr IV ASDIRECTED [facility] Stop: 01/23/19 21:33 Last Admin: 01/23/19 21:40 Dose: 999 mls/hr Lactated Ringer's (Ringers, Lactated) 1,000 mls @ 150 mls/hr IV ASDIRECTED [facility] Last Infusion: 01/24/19 07:36 Dose: 999 mls/hr Diltiazem HCl 125 mg/ Sodium (Chloride) 125 mls @ 5 mls/hr IV TITRATE [facility]; Protocol Last Titration: 01/24/19 11:21 Dose: 0 mg/hr, 0 mls/hr Magnesium Sulfate 4 gm/ Premix 100 mls @ 25 mls/hr IV ONETIME ONE Stop: 01/24/19 07:38 Last Admin: 01/24/19 08:27 Dose: 25 mls/hr Potassium Chloride 10 meq/ (Premix) 100 mls @ 100 mls/hr IV Q1H [facility] Stop: 01/24/19 21:59 Last Admin: 01/24/19 21:44 Dose: 100 mls/hr Metoprolol Tartrate (Lopressor) Confirm Administered Dose 5 mg .ROUTE .STK-MED ONE Stop: 01/24/19 05:57 Last Admin: 01/24/19 05:58 Dose: 5 mg Morphine Sulfate (Morphine) 1 mg IVPUSH ONETIME ONE Stop: 01/24/19 09:08 Last Admin: 01/24/19 09:17 Dose: 1 mg - Exam Quality Assessment: DVT Prophylaxis General: Sedated HEENT: Pupils Equal, Pupils Reactive Neck: Trachea Midline, No JVD Lungs: Normal Respiratory Effort, Decreased Breath Sounds Cardiovascular: Regular Rate GI/Abdominal Exam: Soft, Non-Tender, No Organomegaly, No Distention, Abnormal Bowel Sounds (Female) Exam: Deferred Back Exam: Normal Inspection Extremities: Slow Capillary Refill Skin: Cool Neurological: No New Focal Deficit - Problem List Review Problem List Initiated/Reviewed/Updated: Yes - My Orders Last 24 Hours: My Active Orders 01/24/19 09:00 CULTURE URINE [RM] Routine 01/24/19 10:00 fentaNYL [Duragesic] 12 mcg TRDERM Q72H 01/24/19 12:26 Code Status [Resuscitation Status] Routine 01/24/19 13:30 Patient Status [ADT] Routine 01/24/19 14:34 LORazepam [Ativan] 0.25 mg IVPUSH Q6H PRN Morphine 1 mg IVPUSH Q2H PRN 01/24/19 15:00 cefTRIAXone [Rocephin] 2 gm Sodium Chloride 0.9% [Normal Saline] 100 ml IV Q24H 01/24/19 19:55 Oxygen Therapy [RC] PRN 01/25/19 12:10 LACTIC ACID [CHEM] Routine 01/26/19 05:00 BMP [BASIC METABOLIC PANEL,BMP] [CHEM] DAILY CBC WITH AUTO DIFF [HEME] DAILY CRP [C-REACTIVE PROTEIN] [CHEM] DAILY LACTIC ACID [CHEM] DAILY MAGNESIUM [CHEM] DAILY 01/27/19 05:00 BMP [BASIC METABOLIC PANEL,BMP] [CHEM] DAILY CBC WITH AUTO DIFF [HEME] DAILY CRP [C-REACTIVE PROTEIN] [CHEM] DAILY LACTIC ACID [CHEM] DAILY MAGNESIUM [CHEM] DAILY 01/27/19 10:00 Remove Patch 1 ea TRDERM Q72H 01/28/19 05:00 BMP [BASIC METABOLIC PANEL,BMP] [CHEM] DAILY CBC WITH AUTO DIFF [HEME] DAILY CRP [C-REACTIVE PROTEIN] [CHEM] DAILY LACTIC ACID [CHEM] DAILY MAGNESIUM [CHEM] DAILY - Plan Plan:: Impression: Dementia with AMS Failure to thrive Dehydration, ARF History of CKD Hypernatremia-->slow improvement, will change IVF to D5W has received 4 liters of IVF with current maintenance rate AUTI Leukocytosis A Fib with RVR-->started on cardizem drip Chronic HTN HLD CHF A Fib Anemia GERD Plan: IVF IV ATBs Hold po meds Daily Labs Correct electrolytes Consult CM/SWre: [facility] Hospice MS w/ Telemetry DNR/DNI code status-->now [facility], wish to discuss Hospice care with CM/SW on 01/26/19. Anticipate return to [facility] on Saturday as HC.
[2019-01-25] MEDS ORDERED: Dextrose 5% in Water 1,000 ML IV SCH (10:00)
[2019-01-25] MEDS ORDERED: Potassium Chloride 20 MEQ in Dextrose 5% in Water 1,000 ML IV SCH ×2 (10:00)
[2019-01-25] MEDS: Morphine 2 MG/ML Syringe IVPUSH PRN ×2 (10:37→20:34)
[2019-01-25] MEDS: Potassium Chloride 10 MEQ in Premix Bag 1 BAG IV SCH ×2 (11:34→14:05)
[2019-01-25] MEDS ORDERED: Lactated Ringers 1,000 ML IV ONE (14:09)
[2019-01-25] MEDS: cefTRIAXone 2 GM in Sodium Chloride 0.9% 100 ML IV SCH (14:45)
[2019-01-25] MEDS: Dextrose 5% in Water 1,000 ML IV SCH (16:49)
[2019-01-26] MEDS: Morphine 2 MG/ML Syringe IVPUSH PRN ×5 (00:12→18:24)
[2019-01-26] MEDS ORDERED: Dextrose 5% in Water 1,000 ML IV SCH (02:00)
[2019-01-26] MEDS: Dextrose 5% in Water 1,000 ML IV SCH ×5 (02:02→22:18)
[2019-01-26] MEDS ORDERED: Magnesium Sulfate/Water 4 GM in Premix Bag 1 BAG IV ONE (09:59)
--- NOTE | 2019-01-26 10:01 | PCM.PN ---
- General Info Date of Service: 01/26/19 Functional Status: Reports: Pain Controlled, Tolerating Diet (NPO), Urinating - Review of Systems General: Reports: No Symptoms HEENT: Reports: No Symptoms Pulmonary: Reports: No Symptoms Cardiovascular: Reports: No Symptoms Gastrointestinal: Reports: No Symptoms Genitourinary: Reports: No Symptoms Musculoskeletal: Reports: No Symptoms Skin: Reports: No Symptoms Neurological: Reports: No Symptoms Psychiatric: Reports: No Symptoms - Patient Data Vitals - Most Recent: Last Vital Signs Temp 37.3 C 01/26/19 07:57 Pulse 97 01/26/19 07:57 Resp 20 01/26/19 07:57 BP 132/109 H 01/26/19 07:57 Pulse Ox 92 L 01/26/19 07:57 Weight - Most Recent: 70.534 kg I&O - Last 24 Hours: Intake & Output 01/25/19 01/26/19 01/26/19 22:59 06:59 14:59 Intake Total 2226 1875 Output Total 650 Balance 2226 1225 Lab Results Last 24 Hours: Laboratory Results - last 24 hr 01/25/19 01/26/19 01/26/19 Range/Units 12:19 05:18 05:18 WBC 9.85 (3.98-10.04) K/mm3 RBC 3.91 L (3.98-5.22) M/mm3 Hgb 11.5 (11.2-15.7) gm/L Hct 36.0 (34.1-44.9) % MCV 92.1 (79.4-94.8) fl MCH 29.4 (25.6-32.2) pg MCHC 31.9 L (32.2-35.5) g/dl RDW Std Deviation 56.0 H (36.4-46.3) fL Plt Count 131 L (182-369) K/mm3 MPV 11.7 (9.4-12.3) fl Neut % (Auto) 76.8 H (34.0-71.1) % Lymph % (Auto) 11.4 L (19.3-51.7) % [place] % (Auto) 6.4 (4.7-12.5) % Eos % (Auto) 4.5 (0.7-5.8) Baso % (Auto) 0.2 (0.1-1.2) % Neut # (Auto) 7.57 H (1.56-6.13) K/mm3 Lymph # (Auto) 1.12 L (1.18-3.74) K/mm3 [place] # (Auto) 0.63 H (0.24-0.36) K/mm3 Eos # (Auto) 0.44 H (0.04-0.36) K/mm3 Baso # (Auto) 0.02 (0.01-0.08) K/mm3 Sodium 141 (136-145) mEq/L Potassium 2.6 L (3.5-5.1) mEq/L Chloride 109 H (98-107) mEq/L Carbon Dioxide 21 (21-32) mEq/L Anion Gap 13.6 (5-15) BUN 30 H (7-18) mg/dL Creatinine 1.4 H (0.55-1.02) mg/dL Est Cr Clr Drug Dosing 24.08 mL/min Estimated GFR (MDRD) 36 (>60) mL/min BUN/Creatinine Ratio 21.4 H (14-18) Glucose 128 H (83-115) mg/dL Lactic Acid 2.6 H (0.4-2.0) mmol/L Calcium 7.9 L (8.5-10.1) mg/dL Magnesium 1.6 L (1.8-2.4) mg/dl C-Reactive Protein 13.4 H* (<1.0) mg/dL 01/26/19 Range/Units 05:18 WBC (3.98-10.04) K/mm3 RBC (3.98-5.22) M/mm3 Hgb (11.2-15.7) gm/L Hct (34.1-44.9) % MCV (79.4-94.8) fl MCH (25.6-32.2) pg MCHC (32.2-35.5) g/dl RDW Std Deviation (36.4-46.3) fL Plt Count (182-369) K/mm3 MPV (9.4-12.3) fl Neut % (Auto) (34.0-71.1) % Lymph % (Auto) (19.3-51.7) % [place] % (Auto) (4.7-12.5) % Eos % (Auto) (0.7-5.8) Baso % (Auto) (0.1-1.2) % Neut # (Auto) (1.56-6.13) K/mm3 Lymph # (Auto) (1.18-3.74) K/mm3 [place] # (Auto) (0.24-0.36) K/mm3 Eos # (Auto) (0.04-0.36) K/mm3 Baso # (Auto) (0.01-0.08) K/mm3 Sodium (136-145) mEq/L Potassium (3.5-5.1) mEq/L Chloride (98-107) mEq/L Carbon Dioxide (21-32) mEq/L Anion Gap (5-15) BUN (7-18) mg/dL Creatinine (0.55-1.02) mg/dL Est Cr Clr Drug Dosing mL/min Estimated GFR (MDRD) (>60) mL/min BUN/Creatinine Ratio (14-18) Glucose (83-115) mg/dL Lactic Acid 2.7 H (0.4-2.0) mmol/L Calcium (8.5-10.1) mg/dL Magnesium (1.8-2.4) mg/dl C-Reactive Protein (<1.0) mg/dL [place] Results Last 24 Hours: Microbiology 01/24/19 08:50 Aerobic Blood Culture - Preliminary Blood - Venous - Lab Draw NO GROWTH AFTER 2 DAYS Anaerobic Blood Culture - Final 01/23/19 23:20 Aerobic Blood Culture - Preliminary Blood - Venous NO GROWTH AFTER 2 DAYS Anaerobic Blood Culture - Final 01/23/19 16:25 Urine Culture - Preliminary Urine, Catheterized Klebsiella Pneumoniae Gram Positive Cocci Med Orders - Current: Current Medications Acetaminophen (Tylenol) 600 mg RECTAL Q4H PRN PRN Reason: Pain/Fever Last Admin: 01/24/19 20:26 Dose: 600 mg Fentanyl (Duragesic) 12 mcg TRDERM Q72H [facility] Last Admin: 01/24/19 09:18 Dose: 12 mcg Ceftriaxone Sodium 2 gm/ (Sodium Chloride) 100 mls @ 200 mls/hr IV Q24H [facility] Last Admin: 01/25/19 14:45 Dose: 200 mls/hr Dextrose/Water (Dextrose 5% In Water) 1,000 mls @ 150 mls/hr IV ASDIRECTED [facility] Last Admin: 01/26/19 08:09 Dose: 150 mls/hr Lorazepam (Ativan) 0.25 mg IVPUSH Q6H PRN PRN Reason: Anxiety Metoprolol Tartrate (Lopressor) 5 mg IVPUSH Q6H PRN PRN Reason: Tachycardia Miscellaneous Information (Remove Patch) 1 ea TRDERM Q72H [facility] Morphine Sulfate (Morphine) 1 mg IVPUSH Q2H PRN PRN Reason: Pain (moderate 4-6) Last Admin: 01/26/19 07:58 Dose: 1 mg Potassium Chloride (Potassium Chloride) 40 meq IV Q12HR [facility] Discontinued Medications Acetaminophen (Tylenol) 600 mg RECTAL NOW ONE Stop: 01/23/19 22:23 Last Admin: 01/23/19 22:28 Dose: 600 mg Diltiazem HCl (Diltiazem) Confirm Administered Dose 125 mg .ROUTE .STK-MED ONE Stop: 01/24/19 06:19 Last Admin: 01/24/19 06:21 Dose: Not Given Sodium Chloride (Normal Saline) 1,000 mls @ 999 mls/hr IV ONETIME ONE Stop: 01/23/19 17:18 Last Admin: 01/23/19 16:41 Dose: 999 mls/hr Sodium Chloride (Normal Saline) 1,000 mls @ 999 mls/hr IV ONETIME ONE Stop: 01/23/19 18:53 Last Admin: 01/23/19 18:01 Dose: 999 mls/hr Ceftriaxone Sodium 2 gm/ (Sodium Chloride) 100 mls @ 200 mls/hr IV ONETIME ONE Stop: 01/23/19 18:48 Last Admin: 01/23/19 18:39 Dose: 200 mls/hr Lactated Ringer's (Ringers, Lactated) 1,000 mls @ 999 mls/hr IV .BOLUS ONE Stop: 01/23/19 19:33 Last Admin: 01/23/19 19:57 Dose: 999 mls/hr Lactated Ringer's (Ringers, Lactated) 1,000 mls @ 999 mls/hr IV ASDIRECTED [facility] Stop: 01/23/19 21:33 Last Admin: 01/23/19 21:40 Dose: 999 mls/hr Lactated Ringer's (Ringers, Lactated) 1,000 mls @ 150 mls/hr IV ASDIRECTED [facility] Last Infusion: 01/24/19 07:36 Dose: 999 mls/hr Diltiazem HCl 125 mg/ Sodium (Chloride) 125 mls @ 5 mls/hr IV TITRATE [facility]; Protocol Last Titration: 01/24/19 11:21 Dose: 0 mg/hr, 0 mls/hr Magnesium Sulfate 4 gm/ Premix 100 mls @ 25 mls/hr IV ONETIME ONE Stop: 01/24/19 07:38 Last Admin: 01/24/19 08:27 Dose: 25 mls/hr Dextrose/Water (Dextrose 5% In Water) 1,000 mls @ 100 mls/hr IV ASDIRECTED [facility] Last Admin: 01/24/19 18:03 Dose: 100 mls/hr Potassium Chloride 10 meq/ (Premix) 100 mls @ 100 mls/hr IV Q1H [facility] Stop: 01/24/19 21:59 Last Admin: 01/24/19 21:44 Dose: 100 mls/hr Potassium Chloride 20 meq/ (Dextrose/Water) 1,010 mls @ 151.5 mls/hr IV ASDIRECTED [facility] Dextrose/Water (Dextrose 5% In Water) 1,000 mls @ 150 mls/hr IV ASDIRECTED [facility] Potassium Chloride 10 meq/ (Premix) 100 mls @ 100 mls/hr IV Q1H [facility] Stop: 01/25/19 11:59 Last Admin: 01/25/19 14:05 Dose: 100 mls/hr Dextrose/Water (Dextrose 5% In Water) 1,000 mls @ 150 mls/hr IV ASDIRECTED [facility] Last Infusion: 01/25/19 23:30 Dose: Infused Lactated Ringer's (Ringers, Lactated) 1,000 mls @ 999 mls/hr IV .BOLUS ONE Stop: 01/25/19 15:09 Last Admin: 01/25/19 15:36 Dose: 999 mls/hr Dextrose/Water (Dextrose 5% In Water) 1,000 mls @ 150 mls/hr IV ASDIRECTED [facility] Magnesium Sulfate 4 gm/ Premix 100 mls @ 25 mls/hr IV ONETIME ONE Stop: 01/26/19 10:00 Metoprolol Tartrate (Lopressor) Confirm Administered Dose 5 mg .ROUTE .STK-MED ONE Stop: 01/24/19 05:57 Last Admin: 01/24/19 05:58 Dose: 5 mg Morphine Sulfate (Morphine) 1 mg IVPUSH ONETIME ONE Stop: 01/24/19 09:08 Last Admin: 01/24/19 09:17 Dose: 1 mg - Exam Quality Assessment: Urine Catheter, DVT Prophylaxis (no, comfort care) General: Lethargic HEENT: Pupils Equal, Pupils Reactive Neck: Trachea Midline, No JVD Lungs: Normal Respiratory Effort Cardiovascular: Regular Rate, Regular Rhythm GI/Abdominal Exam: Soft, Non-Tender, No Organomegaly, No Distention, Abnormal Bowel Sounds (Female) Exam: Deferred Back Exam: Normal Inspection Extremities: Normal Inspection, Non-Tender, Normal Capillary Refill Skin: Warm Neurological: No New Focal Deficit Psy/Mental Status: Other (lethargic) - Problem List Review Problem List Initiated/Reviewed/Updated: Yes - My Orders Last 24 Hours: My Active Orders 01/25/19 15:03 Bladder Scan [RC] ASDIRECTED 01/25/19 23:17 Up With Assistance [RC] ASDIRECTED 01/26/19 02:00 Dextrose 5% in Water 1,000 ml IV ASDIRECTED 01/26/19 03:45 Urinary Catheter Insertion [Insert Urinary Catheter] [OM.PC] Q24H 01/26/19 04:02 Urinary Catheter Assessment [RC] ASDIRECTED 01/26/19 11:00 Potassium Chloride 40 meq IV Q12HR 01/26/19 Breakfast Nothing Per Oral Diet [DIET] 01/27/19 05:00 BMP [BASIC METABOLIC PANEL,BMP] [CHEM] DAILY CBC WITH AUTO DIFF [HEME] DAILY CRP [C-REACTIVE PROTEIN] [CHEM] DAILY LACTIC ACID [CHEM] DAILY MAGNESIUM [CHEM] DAILY 01/27/19 10:00 Remove Patch 1 ea TRDERM Q72H 01/28/19 05:00 BMP [BASIC METABOLIC PANEL,BMP] [CHEM] DAILY CBC WITH AUTO DIFF [HEME] DAILY CRP [C-REACTIVE PROTEIN] [CHEM] DAILY LACTIC ACID [CHEM] DAILY MAGNESIUM [CHEM] DAILY - Plan Plan:: Impression: Dementia with AMS Failure to thrive Dehydration, ARF History of CKD Hypernatremia-->resolved, adjust IVF as appropriate AUTI--2 organisms, await C/S; BC +, query contaminant Leukocytosis A Fib with RVR-->started on cardizem drip--resolved Chronic HTN HLD CHF A Fib Anemia GERD Plan: IVF IV ATBs Hold po meds Daily Labs Correct electrolytes Consult CM/SWre: Comfort care cf Hospice MS w/ Telemetry DNR/DNI code status-->now Comfort care; Hospice care will be pursued at the SNF LOS >96 hours, BC+; await C/S.
[2019-01-26] MEDS ORDERED: Potassium Chloride 10% 20 MEQ/15 ML Soln 15 ML UD Cup PO SCH (11:00)
[2019-01-26] MEDS: cefTRIAXone 2 GM in Sodium Chloride 0.9% 100 ML IV SCH (15:37)
[2019-01-26] MEDS: Potassium Chloride 10 MEQ in Premix Bag 1 BAG IV SCH ×8 (16:20→22:18)
[2019-01-27] MEDS: Potassium Chloride 10 MEQ in Premix Bag 1 BAG IV SCH ×2 (00:07→01:42)
[2019-01-27] MEDS: Dextrose 5% in Water 1,000 ML IV SCH ×2 (06:02→13:58)
[2019-01-27] MEDS: Remove Patch*FENTANYL TRDERM SCH (09:44)
[2019-01-27] MEDS: fentaNYL 12 MCG/HR Transdermal Patch TRDERM SCH (09:44)
[2019-01-27] MEDS: Ampicillin/Sulbactam Na 3 GM in Sodium Chloride 0.9% 100 ML IV SCH ×2 (10:39→22:29)
[2019-01-27] MEDS: Morphine 2 MG/ML Syringe IVPUSH PRN (15:19)
[2019-01-27] MEDS: methylPREDNISolone Sodium Succinate 40 MG/1 ML SDV IVPUSH SCH (18:25)
--- NOTE | 2019-01-27 19:05 | PCM.PN ---
- General Info Date of Service: 01/27/19 Subjective Update: UC: K Pneumoniae; E Faecalis BC G+ cocci Rocephin will be stopped--K Pneum E Faecalis--Unasyn Will repeat BCs after 48 hours of Unasyn. IVF adjusted with decrease in Na; replace K Explained focus of care to family Functional Status: Reports: Urinating - Review of Systems General: Reports: No Symptoms HEENT: Reports: No Symptoms Pulmonary: Reports: No Symptoms Cardiovascular: Reports: No Symptoms Gastrointestinal: Reports: No Symptoms Genitourinary: Reports: No Symptoms Musculoskeletal: Reports: No Symptoms Skin: Reports: No Symptoms Neurological: Reports: No Symptoms Psychiatric: Reports: No Symptoms - Patient Data Vitals - Most Recent: Last Vital Signs Temp 36.3 C 01/27/19 17:32 Pulse 76 01/27/19 17:32 Resp 20 01/27/19 17:32 BP 105/71 01/27/19 17:33 Pulse Ox 93 L 01/27/19 18:37 Weight - Most Recent: 70.534 kg I&O - Last 24 Hours: Intake & Output 01/27/19 01/27/19 01/27/19 06:59 14:59 22:59 Intake Total 1805 1100 Output Total 2825 1700 Balance -1020 -600 Lab Results Last 24 Hours: Laboratory Results - last 24 hr 01/27/19 01/27/19 01/27/19 Range/Units 05:54 05:54 05:54 WBC 8.55 (3.98-10.04) K/mm3 RBC 4.40 (3.98-5.22) M/mm3 Hgb 13.2 (11.2-15.7) gm/L Hct 40.2 (34.1-44.9) % MCV 91.4 (79.4-94.8) fl MCH 30.0 (25.6-32.2) pg MCHC 32.8 (32.2-35.5) g/dl RDW Std Deviation 54.9 H (36.4-46.3) fL Plt Count 139 L (182-369) K/mm3 MPV 11.5 (9.4-12.3) fl Neut % (Auto) 71.5 H (34.0-71.1) % Lymph % (Auto) 13.3 L (19.3-51.7) % [place] % (Auto) 8.5 (4.7-12.5) % Eos % (Auto) 5.5 (0.7-5.8) Baso % (Auto) 0.1 (0.1-1.2) % Neut # (Auto) 6.11 (1.56-6.13) K/mm3 Lymph # (Auto) 1.14 L (1.18-3.74) K/mm3 [place] # (Auto) 0.73 H (0.24-0.36) K/mm3 Eos # (Auto) 0.47 H (0.04-0.36) K/mm3 Baso # (Auto) 0.01 (0.01-0.08) K/mm3 Sodium 139 (136-145) mEq/L Potassium 3.9 (3.5-5.1) mEq/L Chloride 108 H (98-107) mEq/L Carbon Dioxide 21 (21-32) mEq/L Anion Gap 13.9 (5-15) BUN 18 (7-18) mg/dL Creatinine 1.2 H (0.55-1.02) mg/dL Est Cr Clr Drug Dosing 27.85 mL/min Estimated GFR (MDRD) 43 (>60) mL/min BUN/Creatinine Ratio 15.0 (14-18) Glucose 92 (83-115) mg/dL Lactic Acid 3.2 H (0.4-2.0) mmol/L Calcium 8.7 (8.5-10.1) mg/dL Magnesium 2.3 (1.8-2.4) mg/dl C-Reactive Protein 11.4 H* (<1.0) mg/dL [place] Results Last 24 Hours: Microbiology 01/23/19 16:25 Urine Culture - Final Urine, Catheterized Klebsiella Pneumoniae Enterococcus Faecalis Enterococcus Faecalis#2 01/24/19 08:50 Aerobic Blood Culture - Preliminary Blood - Venous - Lab Draw NO GROWTH AFTER 3 DAYS Anaerobic Blood Culture - Final 01/23/19 23:20 Aerobic Blood Culture - Preliminary Blood - Venous Gram Positive Cocci Anaerobic Blood Culture - Final Med Orders - Current: Current Medications Acetaminophen (Tylenol) 600 mg RECTAL Q4H PRN PRN Reason: Pain/Fever Last Admin: 01/24/19 20:26 Dose: 600 mg Famotidine (Pepcid) 40 mg IVPUSH BEDTIME [facility] Fentanyl (Duragesic) 12 mcg TRDERM Q72H [facility] Last Admin: 01/27/19 09:44 Dose: 12 mcg Dextrose/Water (Dextrose 5% In Water) 1,000 mls @ 150 mls/hr IV ASDIRECTED [facility] Last Admin: 01/27/19 13:58 Dose: 150 mls/hr Ampicillin Sodium/Sulbactam (Sodium 3 gm/ Sodium Chloride) 100 mls @ 200 mls/ hr IV Q12H [facility] Last Admin: 01/27/19 10:39 Dose: 200 mls/hr Lorazepam (Ativan) 0.25 mg IVPUSH Q6H PRN PRN Reason: Anxiety Methylprednisolone Sodium Succinate (Solu-Medrol) 40 mg IVPUSH DAILY [facility] Last Admin: 01/27/19 18:25 Dose: 40 mg Metoprolol Tartrate (Lopressor) 5 mg IVPUSH Q6H PRN PRN Reason: Tachycardia Miscellaneous Information (Remove Patch) 1 ea TRDERM Q72H [facility] Last Admin: 01/27/19 09:44 Dose: 1 ea Morphine Sulfate (Morphine) 1 mg IVPUSH Q2H PRN PRN Reason: Pain (moderate 4-6) Last Admin: 01/27/19 15:19 Dose: 1 mg Discontinued Medications Acetaminophen (Tylenol) 600 mg RECTAL NOW ONE Stop: 01/23/19 22:23 Last Admin: 01/23/19 22:28 Dose: 600 mg Diltiazem HCl (Diltiazem) Confirm Administered Dose 125 mg .ROUTE .STK-MED ONE Stop: 01/24/19 06:19 Last Admin: 01/24/19 06:21 Dose: Not Given Sodium Chloride (Normal Saline) 1,000 mls @ 999 mls/hr IV ONETIME ONE Stop: 01/23/19 17:18 Last Admin: 01/23/19 16:41 Dose: 999 mls/hr Sodium Chloride (Normal Saline) 1,000 mls @ 999 mls/hr IV ONETIME ONE Stop: 01/23/19 18:53 Last Admin: 01/23/19 18:01 Dose: 999 mls/hr Ceftriaxone Sodium 2 gm/ (Sodium Chloride) 100 mls @ 200 mls/hr IV ONETIME ONE Stop: 01/23/19 18:48 Last Admin: 01/23/19 18:39 Dose: 200 mls/hr Lactated Ringer's (Ringers, Lactated) 1,000 mls @ 999 mls/hr IV .BOLUS ONE Stop: 01/23/19 19:33 Last Admin: 01/23/19 19:57 Dose: 999 mls/hr Lactated Ringer's (Ringers, Lactated) 1,000 mls @ 999 mls/hr IV ASDIRECTED [facility] Stop: 01/23/19 21:33 Last Admin: 01/23/19 21:40 Dose: 999 mls/hr Lactated Ringer's (Ringers, Lactated) 1,000 mls @ 150 mls/hr IV ASDIRECTED [facility] Last Infusion: 01/24/19 07:36 Dose: 999 mls/hr Ceftriaxone Sodium 2 gm/ (Sodium Chloride) 100 mls @ 200 mls/hr IV Q24H [facility] Last Admin: 01/26/19 15:37 Dose: 200 mls/hr Diltiazem HCl 125 mg/ Sodium (Chloride) 125 mls @ 5 mls/hr IV TITRATE [facility]; Protocol Last Titration: 01/24/19 11:21 Dose: 0 mg/hr, 0 mls/hr Magnesium Sulfate 4 gm/ Premix 100 mls @ 25 mls/hr IV ONETIME ONE Stop: 01/24/19 07:38 Last Admin: 01/24/19 08:27 Dose: 25 mls/hr Dextrose/Water (Dextrose 5% In Water) 1,000 mls @ 100 mls/hr IV ASDIRECTED [facility] Last Admin: 01/24/19 18:03 Dose: 100 mls/hr Potassium Chloride 10 meq/ (Premix) 100 mls @ 100 mls/hr IV Q1H [facility] Stop: 01/24/19 21:59 Last Admin: 01/24/19 21:44 Dose: 100 mls/hr Potassium Chloride 20 meq/ (Dextrose/Water) 1,010 mls @ 151.5 mls/hr IV ASDIRECTED [facility] Dextrose/Water (Dextrose 5% In Water) 1,000 mls @ 150 mls/hr IV ASDIRECTED [facility] Potassium Chloride 10 meq/ (Premix) 100 mls @ 100 mls/hr IV Q1H [facility] Stop: 01/25/19 11:59 Last Admin: 01/25/19 14:05 Dose: 100 mls/hr Dextrose/Water (Dextrose 5% In Water) 1,000 mls @ 150 mls/hr IV ASDIRECTED [facility] Last Infusion: 01/25/19 23:30 Dose: Infused Lactated Ringer's (Ringers, Lactated) 1,000 mls @ 999 mls/hr IV .BOLUS ONE Stop: 01/25/19 15:09 Last Admin: 01/25/19 15:36 Dose: 999 mls/hr Dextrose/Water (Dextrose 5% In Water) 1,000 mls @ 150 mls/hr IV ASDIRECTED [facility] Magnesium Sulfate 4 gm/ Premix 100 mls @ 25 mls/hr IV ONETIME ONE Stop: 01/26/19 10:00 Last Admin: 01/26/19 11:36 Dose: 25 mls/hr Potassium Chloride 10 meq/ (Premix) 100 mls @ 100 mls/hr IV Q1H [facility] Stop: 01/26/19 19:59 Last Admin: 01/26/19 17:10 Dose: Not Given Potassium Chloride 10 meq/ (Premix) 100 mls @ 100 mls/hr IV Q1H [facility] Stop: 01/26/19 23:59 Last Admin: 01/27/19 01:42 Dose: 100 mls/hr Metoprolol Tartrate (Lopressor) Confirm Administered Dose 5 mg .ROUTE .STK-MED ONE Stop: 01/24/19 05:57 Last Admin: 01/24/19 05:58 Dose: 5 mg Morphine Sulfate (Morphine) 1 mg IVPUSH ONETIME ONE Stop: 01/24/19 09:08 Last Admin: 01/24/19 09:17 Dose: 1 mg - Exam Quality Assessment: Urine Catheter General: Lethargic HEENT: Pupils Equal, Pupils Reactive Neck: Trachea Midline, No JVD Lungs: Normal Respiratory Effort Cardiovascular: Regular Rate, Regular Rhythm GI/Abdominal Exam: Soft, Non-Tender, No Organomegaly, No Distention, Abnormal Bowel Sounds (Female) Exam: Deferred Back Exam: Normal Inspection Extremities: Non-Tender, Normal Capillary Refill Skin: Warm Neurological: No New Focal Deficit Psy/Mental Status: Other (lethargic) - Problem List Review Problem List Initiated/Reviewed/Updated: Yes - My Orders Last 24 Hours: My Active Orders 01/27/19 10:00 Ampicillin/Sulbactam Na [Unasyn] 3 gm Sodium Chloride 0.9% [Normal Saline] 100 ml IV Q12H Remove Patch 1 ea TRDERM Q72H 01/27/19 17:45 methylPREDNISolone Sod Succ [Solu-MEDROL] 40 mg IVPUSH DAILY 01/27/19 21:00 Famotidine [Pepcid] 40 mg IVPUSH BEDTIME 01/28/19 05:00 BMP [BASIC METABOLIC PANEL,BMP] [CHEM] DAILY CBC WITH AUTO DIFF [HEME] DAILY CRP [C-REACTIVE PROTEIN] [CHEM] DAILY LACTIC ACID [CHEM] DAILY MAGNESIUM [CHEM] DAILY - Plan Plan:: Impression: Dementia with AMS; [place] w/CC Failure to thrive Dehydration, ARF--resolved History of CKD Hypernatremia-->resolved, adjust IVF as appropriate AUTI--2 organisms, await C/S; BC +, query contaminant Leukocytosis A Fib with RVR-->started on cardizem drip--resolved Chronic HTN HLD CHF A Fib Anemia GERD Plan: IVF IV ATBs Hold po meds Daily Labs Correct electrolytes Consult CM/SW: Comfort care cf Hospice --UC: K Pneumoniae; E Faecalis --BC G+ cocci --Rocephin will be stopped--K Pneum --E Faecalis--Unasyn --Will repeat BCs after 48 hours of Unasyn. --IVF adjusted with decrease in Na; replace K
[2019-01-27] MEDS ORDERED: Dextrose 5%-0.9% NaCl with KCl 1,000 ML IV SCH (19:15)
[2019-01-27] MEDS ORDERED: Famotidine 20 MG/2 ML SDV IVPUSH SCH (21:00)
[2019-01-28] MEDS: Morphine 2 MG/ML Syringe IVPUSH PRN ×3 (04:12→11:20)
[2019-01-28] MEDS: methylPREDNISolone Sodium Succinate 40 MG/1 ML SDV IVPUSH SCH (09:16)
[2019-01-28] MEDS: Ampicillin/Sulbactam Na 3 GM in Sodium Chloride 0.9% 100 ML IV SCH ×2 (09:19→21:21)
[2019-01-28] MEDS ORDERED: Furosemide 20 MG/2 ML VIAL IVPUSH ONE (10:59)
[2019-01-28] MEDS: LORazepam 2 MG/ML SDV IVPUSH PRN ×2 (12:35→18:36)
[2019-01-28] MEDS: Morphine 10 MG/0.5 ML Oral Syringe SL PRN ×2 (16:28→22:02)
--- NOTE | 2019-01-28 19:38 | PCM.PN ---
- General Info Date of Service: 01/28/19 Functional Status: Reports: Urinating - Review of Systems General: Reports: Weakness HEENT: Reports: No Symptoms Pulmonary: Reports: No Symptoms Cardiovascular: Reports: No Symptoms Gastrointestinal: Reports: No Symptoms Genitourinary: Reports: No Symptoms Musculoskeletal: Reports: No Symptoms Skin: Reports: No Symptoms Neurological: Reports: No Symptoms Psychiatric: Reports: Agitation - Patient Data Vitals - Most Recent: Last Vital Signs Temp 36.6 C 01/28/19 11:25 Pulse 79 01/28/19 11:20 Resp 20 01/28/19 11:25 BP 132/75 01/28/19 11:20 Pulse Ox 96 01/28/19 11:20 Weight - Most Recent: 73.618 kg I&O - Last 24 Hours: Intake & Output 01/28/19 01/28/19 01/28/19 06:59 14:59 22:59 Intake Total 975 525 100 Output Total 1750 1550 Balance -775 525 -1450 Lab Results Last 24 Hours: Laboratory Results - last 24 hr 01/28/19 01/28/19 01/28/19 Range/Units 05:35 05:35 05:35 WBC 6.00 (3.98-10.04) K/mm3 RBC 3.88 L (3.98-5.22) M/mm3 Hgb 11.6 (11.2-15.7) gm/L Hct 35.3 (34.1-44.9) % MCV 91.0 (79.4-94.8) fl MCH 29.9 (25.6-32.2) pg MCHC 32.9 (32.2-35.5) g/dl RDW Std Deviation 54.4 H (36.4-46.3) fL Plt Count 139 L (182-369) K/mm3 MPV 10.8 (9.4-12.3) fl Neut % (Auto) 93.7 H (34.0-71.1) % Lymph % (Auto) 4.7 L (19.3-51.7) % [place] % (Auto) 0.8 L (4.7-12.5) % Eos % (Auto) 0 L (0.7-5.8) Baso % (Auto) 0.0 L (0.1-1.2) % Neut # (Auto) 5.62 (1.56-6.13) K/mm3 Lymph # (Auto) 0.28 L (1.18-3.74) K/mm3 [place] # (Auto) 0.05 L (0.24-0.36) K/mm3 Eos # (Auto) 0.00 L (0.04-0.36) K/mm3 Baso # (Auto) 0.00 L (0.01-0.08) K/mm3 Manual Slide Review Abnormal smear Sodium 144 (136-145) mEq/L Potassium 4.2 (3.5-5.1) mEq/L Chloride 113 H (98-107) mEq/L Carbon Dioxide 17 L (21-32) mEq/L Anion Gap 18.2 H (5-15) BUN 11 (7-18) mg/dL Creatinine 1.2 H (0.55-1.02) mg/dL Est Cr Clr Drug Dosing 27.85 mL/min Estimated GFR (MDRD) 43 (>60) mL/min BUN/Creatinine Ratio 9.2 L (14-18) Glucose 209 H (83-115) mg/dL Lactic Acid 4.4 H (0.4-2.0) mmol/L Calcium 8.3 L (8.5-10.1) mg/dL Magnesium 1.7 L (1.8-2.4) mg/dl C-Reactive Protein 6.3 H* (<1.0) mg/dL [place] Results Last 24 Hours: Microbiology 01/24/19 08:50 Aerobic Blood Culture - Preliminary Blood - Venous - Lab Draw NO GROWTH AFTER 4 DAYS Anaerobic Blood Culture - Final 01/23/19 23:20 Aerobic Blood Culture - Final Blood - Venous Staphylococcus Aureus Anaerobic Blood Culture - Final Med Orders - Current: Current Medications Acetaminophen (Tylenol) 600 mg RECTAL Q4H PRN PRN Reason: Pain/Fever Last Admin: 01/24/19 20:26 Dose: 600 mg Famotidine (Pepcid) 20 mg IVPUSH BEDTIME [facility] Fentanyl (Duragesic) 12 mcg TRDERM Q72H [facility] Last Admin: 01/27/19 09:44 Dose: 12 mcg Ampicillin Sodium/Sulbactam (Sodium 3 gm/ Sodium Chloride) 100 mls @ 200 mls/ hr IV Q12H [facility] Last Admin: 01/28/19 09:19 Dose: 200 mls/hr Potassium Chloride/Dextrose/Sod Cl (D5 Ns With 20 Meq Kcl) 1,000 mls @ 75 mls/ hr IV ASDIRECTED [facility] Lorazepam (Ativan) 0.25 mg IVPUSH Q6H PRN PRN Reason: Anxiety Last Admin: 01/28/19 18:36 Dose: 0.25 mg Methylprednisolone Sodium Succinate (Solu-Medrol) 40 mg IVPUSH DAILY [facility] Last Admin: 01/28/19 09:16 Dose: 40 mg Metoprolol Tartrate (Lopressor) 5 mg IVPUSH Q6H PRN PRN Reason: Tachycardia Miscellaneous Information (Remove Patch) 1 ea TRDERM Q72H [facility] Last Admin: 01/27/19 09:44 Dose: 1 ea Morphine Sulfate (Morphine 10 Mg/0.5 Ml Oral Syringe) 2.5 mg SL Q6H PRN PRN Reason: Pain (moderate 4-6) Last Admin: 01/28/19 16:28 Dose: 2.5 mg Discontinued Medications Acetaminophen (Tylenol) 600 mg RECTAL NOW ONE Stop: 01/23/19 22:23 Last Admin: 01/23/19 22:28 Dose: 600 mg Diltiazem HCl (Diltiazem) Confirm Administered Dose 125 mg .ROUTE .STK-MED ONE Stop: 01/24/19 06:19 Last Admin: 01/24/19 06:21 Dose: Not Given Famotidine (Pepcid) 40 mg IVPUSH BEDTIME [facility] Last Admin: 01/27/19 20:04 Dose: 40 mg Furosemide (Lasix) 20 mg IVPUSH NOW ONE Stop: 01/28/19 11:00 Last Admin: 01/28/19 11:25 Dose: 20 mg Sodium Chloride (Normal Saline) 1,000 mls @ 999 mls/hr IV ONETIME ONE Stop: 01/23/19 17:18 Last Admin: 01/23/19 16:41 Dose: 999 mls/hr Sodium Chloride (Normal Saline) 1,000 mls @ 999 mls/hr IV ONETIME ONE Stop: 01/23/19 18:53 Last Admin: 01/23/19 18:01 Dose: 999 mls/hr Ceftriaxone Sodium 2 gm/ (Sodium Chloride) 100 mls @ 200 mls/hr IV ONETIME ONE Stop: 01/23/19 18:48 Last Admin: 01/23/19 18:39 Dose: 200 mls/hr Lactated Ringer's (Ringers, Lactated) 1,000 mls @ 999 mls/hr IV .BOLUS ONE Stop: 01/23/19 19:33 Last Admin: 01/23/19 19:57 Dose: 999 mls/hr Lactated Ringer's (Ringers, Lactated) 1,000 mls @ 999 mls/hr IV ASDIRECTED [facility] Stop: 01/23/19 21:33 Last Admin: 01/23/19 21:40 Dose: 999 mls/hr Lactated Ringer's (Ringers, Lactated) 1,000 mls @ 150 mls/hr IV ASDIRECTED [facility] Last Infusion: 01/24/19 07:36 Dose: 999 mls/hr Ceftriaxone Sodium 2 gm/ (Sodium Chloride) 100 mls @ 200 mls/hr IV Q24H [facility] Last Admin: 01/26/19 15:37 Dose: 200 mls/hr Diltiazem HCl 125 mg/ Sodium (Chloride) 125 mls @ 5 mls/hr IV TITRATE [facility]; Protocol Last Titration: 01/24/19 11:21 Dose: 0 mg/hr, 0 mls/hr Magnesium Sulfate 4 gm/ Premix 100 mls @ 25 mls/hr IV ONETIME ONE Stop: 01/24/19 07:38 Last Admin: 01/24/19 08:27 Dose: 25 mls/hr Dextrose/Water (Dextrose 5% In Water) 1,000 mls @ 100 mls/hr IV ASDIRECTED [facility] Last Admin: 01/24/19 18:03 Dose: 100 mls/hr Potassium Chloride 10 meq/ (Premix) 100 mls @ 100 mls/hr IV Q1H [facility] Stop: 01/24/19 21:59 Last Admin: 01/24/19 21:44 Dose: 100 mls/hr Potassium Chloride 20 meq/ (Dextrose/Water) 1,010 mls @ 151.5 mls/hr IV ASDIRECTED [facility] Dextrose/Water (Dextrose 5% In Water) 1,000 mls @ 150 mls/hr IV ASDIRECTED [facility] Potassium Chloride 10 meq/ (Premix) 100 mls @ 100 mls/hr IV Q1H [facility] Stop: 01/25/19 11:59 Last Admin: 01/25/19 14:05 Dose: 100 mls/hr Dextrose/Water (Dextrose 5% In Water) 1,000 mls @ 150 mls/hr IV ASDIRECTED [facility] Last Infusion: 01/25/19 23:30 Dose: Infused Lactated Ringer's (Ringers, Lactated) 1,000 mls @ 999 mls/hr IV .BOLUS ONE Stop: 01/25/19 15:09 Last Admin: 01/25/19 15:36 Dose: 999 mls/hr Dextrose/Water (Dextrose 5% In Water) 1,000 mls @ 150 mls/hr IV ASDIRECTED [facility] Dextrose/Water (Dextrose 5% In Water) 1,000 mls @ 150 mls/hr IV ASDIRECTED [facility] Last Admin: 01/27/19 13:58 Dose: 150 mls/hr Magnesium Sulfate 4 gm/ Premix 100 mls @ 25 mls/hr IV ONETIME ONE Stop: 01/26/19 10:00 Last Admin: 01/26/19 11:36 Dose: 25 mls/hr Potassium Chloride 10 meq/ (Premix) 100 mls @ 100 mls/hr IV Q1H [facility] Stop: 01/26/19 19:59 Last Admin: 01/26/19 17:10 Dose: Not Given Potassium Chloride 10 meq/ (Premix) 100 mls @ 100 mls/hr IV Q1H [facility] Stop: 01/26/19 23:59 Last Admin: 01/27/19 01:42 Dose: 100 mls/hr Potassium Chloride/Dextrose/Sod Cl (D5 Ns With 20 Meq Kcl) 1,000 mls @ 75 mls/ hr IV ASDIRECTED [facility] Last Admin: 01/27/19 20:05 Dose: 75 mls/hr Metoprolol Tartrate (Lopressor) Confirm Administered Dose 5 mg .ROUTE .STK-MED ONE Stop: 01/24/19 05:57 Last Admin: 01/24/19 05:58 Dose: 5 mg Morphine Sulfate (Morphine) 1 mg IVPUSH ONETIME ONE Stop: 01/24/19 09:08 Last Admin: 01/24/19 09:17 Dose: 1 mg Morphine Sulfate (Morphine) 1 mg IVPUSH Q2H PRN PRN Reason: Pain (moderate 4-6) Last Admin: 01/28/19 11:20 Dose: 1 mg - Exam Quality Assessment: Supplemental Oxygen, Urine Catheter General: No Acute Distress HEENT: Pupils Equal, Pupils Reactive, EOMI Neck: Trachea Midline, No JVD Lungs: Normal Respiratory Effort, Rhonchi Cardiovascular: Regular Rate, Regular Rhythm GI/Abdominal Exam: Normal Bowel Sounds, Soft, Non-Tender, No Organomegaly, No Distention (Female) Exam: Deferred Back Exam: Normal Inspection Extremities: Normal Inspection, Non-Tender, Normal Capillary Refill Skin: Warm Neurological: No New Focal Deficit Psy/Mental Status: Alert - Problem List Review Problem List Initiated/Reviewed/Updated: Yes - My Orders Last 24 Hours: My Active Orders 01/28/19 11:00 Morphine [Morphine 10 MG/0.5 ML Oral Syringe] 2.5 mg SL Q6H PRN 01/28/19 21:00 Famotidine [Pepcid] 20 mg IVPUSH BEDTIME 01/28/19 23:05 Dextrose 5%-0.9% NaCl with KCl [D5 NS with 20 mEq KCl] 1,000 ml IV ASDIRECTED - Plan Plan:: Impression: Dementia with AMS; [place] w/CC Failure to thrive Dehydration, ARF--resolved History of CKD Hypernatremia-->resolved, adjust IVF as appropriate AUTI--2 organisms, await C/S; BC +, query contaminant Leukocytosis A Fib with RVR-->started on cardizem drip--resolved Chronic HTN HLD CHF A Fib Anemia GERD Plan: IVF IV ATBs Hold po meds Daily Labs Correct electrolytes Consult CM/SW: Comfort care cf Hospice --UC: K Pneumoniae; E Faecalis --BC G+ cocci --Rocephin will be stopped--K Pneum --E Faecalis--Unasyn --Will repeat BCs after 48 hours of Unasyn-->01/28/19. --IVF adjusted with decrease in Na; replace K
[2019-01-28] MEDS: Famotidine 20 MG/2 ML SDV IVPUSH SCH (21:21)
[2019-01-28] MEDS ORDERED: Dextrose 5%-0.9% NaCl with KCl 1,000 ML IV SCH (23:05)
[2019-01-29] MEDS: LORazepam 2 MG/ML SDV IVPUSH PRN ×2 (00:37→07:52)
[2019-01-29] MEDS: Morphine 10 MG/0.5 ML Oral Syringe SL PRN ×5 (08:04→20:47)
[2019-01-29] MEDS: methylPREDNISolone Sodium Succinate 40 MG/1 ML SDV IVPUSH SCH (08:06)
[2019-01-29] MEDS ORDERED: Morphine 10 MG/0.5 ML Oral Syringe SL PRN (09:14)
[2019-01-29] MEDS: Acetaminophen 650 MG Supp RECTAL PRN (09:37)
[2019-01-29] MEDS: Ampicillin/Sulbactam Na 3 GM in Sodium Chloride 0.9% 100 ML IV SCH ×2 (09:45→22:35)
[2019-01-29] MEDS ORDERED: Morphine Oral Concentrate 20 MG/ML 30 ML Bottle SL SCH (11:45)
--- NOTE | 2019-01-29 15:52 | PCM.PN ---
- General Info Date of Service: 01/29/19 Subjective Update: Patient is moaning and appears to be in pain or discomfort; will adjust dose of MSO4. Stopping Ativan which is not an option once returning to the SNF. Functional Status: Reports: Urinating - Review of Systems General: Reports: No Symptoms HEENT: Reports: No Symptoms Pulmonary: Reports: No Symptoms Cardiovascular: Reports: No Symptoms Gastrointestinal: Reports: No Symptoms Genitourinary: Reports: No Symptoms Musculoskeletal: Reports: No Symptoms Skin: Reports: No Symptoms Neurological: Reports: No Symptoms Psychiatric: Reports: No Symptoms - Patient Data Vitals - Most Recent: Last Vital Signs Temp 37.1 C 01/28/19 19:32 Pulse 81 01/28/19 19:32 Resp 17 01/28/19 19:32 BP 112/61 01/28/19 19:32 Pulse Ox 94 L 01/28/19 19:32 Weight - Most Recent: 73.618 kg I&O - Last 24 Hours: Intake & Output 01/29/19 01/29/19 01/29/19 06:59 14:59 22:59 Intake Total 365 Output Total 1350 Balance -985 Lab Results Last 24 Hours: Laboratory Results - last 24 hr 01/29/19 01/29/19 Range/Units 05:08 05:08 WBC 13.73 H (3.98-10.04) K/mm3 RBC 4.27 (3.98-5.22) M/mm3 Hgb 12.7 (11.2-15.7) gm/L Hct 38.9 (34.1-44.9) % MCV 91.1 (79.4-94.8) fl MCH 29.7 (25.6-32.2) pg MCHC 32.6 (32.2-35.5) g/dl RDW Std Deviation 54.5 H (36.4-46.3) fL Plt Count 160 L (182-369) K/mm3 MPV 11.0 (9.4-12.3) fl Neut % (Auto) 87.0 H (34.0-71.1) % Lymph % (Auto) 5.8 L (19.3-51.7) % [place] % (Auto) 6.3 (4.7-12.5) % Eos % (Auto) 0 L (0.7-5.8) Baso % (Auto) 0.1 (0.1-1.2) % Neut # (Auto) 11.94 H (1.56-6.13) K/mm3 Lymph # (Auto) 0.80 L (1.18-3.74) K/mm3 [place] # (Auto) 0.86 H (0.24-0.36) K/mm3 Eos # (Auto) 0.00 L (0.04-0.36) K/mm3 Baso # (Auto) 0.02 (0.01-0.08) K/mm3 Manual Slide Review Abnormal smear Sodium 148 H (136-145) mEq/L Potassium 3.8 (3.5-5.1) mEq/L Chloride 114 H (98-107) mEq/L Carbon Dioxide 22 (21-32) mEq/L Anion Gap 15.8 H (5-15) BUN 11 (7-18) mg/dL Creatinine 1.2 H (0.55-1.02) mg/dL Est Cr Clr Drug Dosing 27.85 mL/min Estimated GFR (MDRD) 43 (>60) mL/min BUN/Creatinine Ratio 9.2 L (14-18) Glucose 159 H (83-115) mg/dL Calcium 8.7 (8.5-10.1) mg/dL Magnesium 1.8 (1.8-2.4) mg/dl C-Reactive Protein 4.0 H* (<1.0) mg/dL [place] Results Last 24 Hours: Microbiology 01/24/19 08:50 Aerobic Blood Culture - Preliminary Blood - Venous - Lab Draw NO GROWTH AFTER 5 DAYS Anaerobic Blood Culture - Final Med Orders - Current: Current Medications Acetaminophen (Tylenol) 600 mg RECTAL Q4H PRN PRN Reason: Pain/Fever Last Admin: 01/29/19 09:37 Dose: 600 mg Famotidine (Pepcid) 20 mg IVPUSH BEDTIME [facility] Last Admin: 01/28/19 21:21 Dose: 20 mg Fentanyl (Duragesic) 12 mcg TRDERM Q72H [facility] Last Admin: 01/27/19 09:44 Dose: 12 mcg Ampicillin Sodium/Sulbactam (Sodium 3 gm/ Sodium Chloride) 100 mls @ 200 mls/ hr IV Q12H [facility] Last Admin: 01/29/19 09:45 Dose: 200 mls/hr Dextrose/Water (Dextrose 5% In Water) 1,000 mls @ 75 mls/hr IV ASDIRECTED [facility] Metoprolol Tartrate (Lopressor) 5 mg IVPUSH Q6H PRN PRN Reason: Tachycardia Miscellaneous Information (Remove Patch) 1 ea TRDERM Q72H [facility] Last Admin: 01/27/19 09:44 Dose: 1 ea Morphine Sulfate (Morphine 10 Mg/0.5 Ml Oral Syringe) 5 mg SL Q4H PRN PRN Reason: Pain (moderate 4-6) Last Admin: 01/29/19 15:47 Dose: 5 mg Discontinued Medications Acetaminophen (Tylenol) 600 mg RECTAL NOW ONE Stop: 01/23/19 22:23 Last Admin: 01/23/19 22:28 Dose: 600 mg Diltiazem HCl (Diltiazem) Confirm Administered Dose 125 mg .ROUTE .STK-MED ONE Stop: 01/24/19 06:19 Last Admin: 01/24/19 06:21 Dose: Not Given Famotidine (Pepcid) 40 mg IVPUSH BEDTIME [facility] Last Admin: 01/27/19 20:04 Dose: 40 mg Furosemide (Lasix) 20 mg IVPUSH NOW ONE Stop: 01/28/19 11:00 Last Admin: 01/28/19 11:25 Dose: 20 mg Sodium Chloride (Normal Saline) 1,000 mls @ 999 mls/hr IV ONETIME ONE Stop: 01/23/19 17:18 Last Admin: 01/23/19 16:41 Dose: 999 mls/hr Sodium Chloride (Normal Saline) 1,000 mls @ 999 mls/hr IV ONETIME ONE Stop: 01/23/19 18:53 Last Admin: 01/23/19 18:01 Dose: 999 mls/hr Ceftriaxone Sodium 2 gm/ (Sodium Chloride) 100 mls @ 200 mls/hr IV ONETIME ONE Stop: 01/23/19 18:48 Last Admin: 01/23/19 18:39 Dose: 200 mls/hr Lactated Ringer's (Ringers, Lactated) 1,000 mls @ 999 mls/hr IV .BOLUS ONE Stop: 01/23/19 19:33 Last Admin: 01/23/19 19:57 Dose: 999 mls/hr Lactated Ringer's (Ringers, Lactated) 1,000 mls @ 999 mls/hr IV ASDIRECTED [facility] Stop: 01/23/19 21:33 Last Admin: 01/23/19 21:40 Dose: 999 mls/hr Lactated Ringer's (Ringers, Lactated) 1,000 mls @ 150 mls/hr IV ASDIRECTED [facility] Last Infusion: 01/24/19 07:36 Dose: 999 mls/hr Ceftriaxone Sodium 2 gm/ (Sodium Chloride) 100 mls @ 200 mls/hr IV Q24H [facility] Last Admin: 01/26/19 15:37 Dose: 200 mls/hr Diltiazem HCl 125 mg/ Sodium (Chloride) 125 mls @ 5 mls/hr IV TITRATE [facility]; Protocol Last Titration: 01/24/19 11:21 Dose: 0 mg/hr, 0 mls/hr Magnesium Sulfate 4 gm/ Premix 100 mls @ 25 mls/hr IV ONETIME ONE Stop: 01/24/19 07:38 Last Admin: 01/24/19 08:27 Dose: 25 mls/hr Dextrose/Water (Dextrose 5% In Water) 1,000 mls @ 100 mls/hr IV ASDIRECTED [facility] Last Admin: 01/24/19 18:03 Dose: 100 mls/hr Potassium Chloride 10 meq/ (Premix) 100 mls @ 100 mls/hr IV Q1H [facility] Stop: 01/24/19 21:59 Last Admin: 01/24/19 21:44 Dose: 100 mls/hr Potassium Chloride 20 meq/ (Dextrose/Water) 1,010 mls @ 151.5 mls/hr IV ASDIRECTED [facility] Dextrose/Water (Dextrose 5% In Water) 1,000 mls @ 150 mls/hr IV ASDIRECTED [facility] Potassium Chloride 10 meq/ (Premix) 100 mls @ 100 mls/hr IV Q1H [facility] Stop: 01/25/19 11:59 Last Admin: 01/25/19 14:05 Dose: 100 mls/hr Dextrose/Water (Dextrose 5% In Water) 1,000 mls @ 150 mls/hr IV ASDIRECTED [facility] Last Infusion: 01/25/19 23:30 Dose: Infused Lactated Ringer's (Ringers, Lactated) 1,000 mls @ 999 mls/hr IV .BOLUS ONE Stop: 01/25/19 15:09 Last Admin: 01/25/19 15:36 Dose: 999 mls/hr Dextrose/Water (Dextrose 5% In Water) 1,000 mls @ 150 mls/hr IV ASDIRECTED [facility] Dextrose/Water (Dextrose 5% In Water) 1,000 mls @ 150 mls/hr IV ASDIRECTED [facility] Last Admin: 01/27/19 13:58 Dose: 150 mls/hr Magnesium Sulfate 4 gm/ Premix 100 mls @ 25 mls/hr IV ONETIME ONE Stop: 01/26/19 10:00 Last Admin: 01/26/19 11:36 Dose: 25 mls/hr Potassium Chloride 10 meq/ (Premix) 100 mls @ 100 mls/hr IV Q1H [facility] Stop: 01/26/19 19:59 Last Admin: 01/26/19 17:10 Dose: Not Given Potassium Chloride 10 meq/ (Premix) 100 mls @ 100 mls/hr IV Q1H [facility] Stop: 01/26/19 23:59 Last Admin: 01/27/19 01:42 Dose: 100 mls/hr Potassium Chloride/Dextrose/Sod Cl (D5 Ns With 20 Meq Kcl) 1,000 mls @ 75 mls/ hr IV ASDIRECTED [facility] Last Admin: 01/27/19 20:05 Dose: 75 mls/hr Potassium Chloride/Dextrose/Sod Cl (D5 Ns With 20 Meq Kcl) 1,000 mls @ 75 mls/ hr IV ASDIRECTED [facility] Stop: 01/29/19 11:00 Last Admin: 01/28/19 23:17 Dose: 75 mls/hr Potassium Chloride/Dextrose/Sod Cl (D5 Ns With 20 Meq Kcl) 1,000 mls @ 75 mls/ hr IV ASDIRECTED [facility] Stop: 01/30/19 11:00 Lorazepam (Ativan) 0.25 mg IVPUSH Q6H PRN PRN Reason: Anxiety Last Admin: 01/29/19 07:52 Dose: 0.25 mg Methylprednisolone Sodium Succinate (Solu-Medrol) 40 mg IVPUSH DAILY [facility] Last Admin: 01/29/19 08:06 Dose: 40 mg Metoprolol Tartrate (Lopressor) Confirm Administered Dose 5 mg .ROUTE .STK-MED ONE Stop: 01/24/19 05:57 Last Admin: 01/24/19 05:58 Dose: 5 mg Morphine Sulfate (Morphine) 1 mg IVPUSH ONETIME ONE Stop: 01/24/19 09:08 Last Admin: 01/24/19 09:17 Dose: 1 mg Morphine Sulfate (Morphine) 1 mg IVPUSH Q2H PRN PRN Reason: Pain (moderate 4-6) Last Admin: 01/28/19 11:20 Dose: 1 mg Morphine Sulfate (Morphine 10 Mg/0.5 Ml Oral Syringe) 2.5 mg SL Q6H PRN PRN Reason: Pain (moderate 4-6) Last Admin: 01/29/19 08:04 Dose: 2.5 mg Morphine Sulfate (Morphine 10 Mg/0.5 Ml Oral Syringe) 2.5 mg SL Q6H PRN PRN Reason: Pain (moderate 4-6) Morphine Sulfate (Morphine 20 Mg/Ml Soln) 5 mg SL Q4H [facility] - Exam Quality Assessment: Urine Catheter General: Lethargic HEENT: Pupils Equal, Pupils Reactive, EOMI Neck: No JVD Lungs: Normal Respiratory Effort Cardiovascular: Regular Rate, Regular Rhythm GI/Abdominal Exam: Normal Bowel Sounds, Soft, Non-Tender, No Organomegaly, No Distention (Female) Exam: Deferred Extremities: Normal Inspection, Non-Tender, Normal Capillary Refill Skin: Warm Neurological: No New Focal Deficit Psy/Mental Status: Other - Problem List Review Problem List Initiated/Reviewed/Updated: Yes - My Orders Last 24 Hours: My Active Orders 01/28/19 21:00 Famotidine [Pepcid] 20 mg IVPUSH BEDTIME 01/29/19 10:58 Morphine [Morphine 10 MG/0.5 ML Oral Syringe] 5 mg SL Q4H PRN 01/29/19 17:00 CULTURE BLOOD [BC] Routine Dextrose 5% in Water @ 75 MLS/HR(1000ml) Dextrose 5% in Water 1,000 ml IV ASDIRECTED 01/30/19 05:00 BMP [BASIC METABOLIC PANEL,BMP] [CHEM] DAILY CBC WITH AUTO DIFF [HEME] DAILY CRP [C-REACTIVE PROTEIN] [CHEM] DAILY MAGNESIUM [CHEM] DAILY 01/31/19 05:00 BMP [BASIC METABOLIC PANEL,BMP] [CHEM] DAILY CBC WITH AUTO DIFF [HEME] DAILY CRP [C-REACTIVE PROTEIN] [CHEM] DAILY MAGNESIUM [CHEM] DAILY 02/01/19 05:00 BMP [BASIC METABOLIC PANEL,BMP] [CHEM] DAILY CBC WITH AUTO DIFF [HEME] DAILY CRP [C-REACTIVE PROTEIN] [CHEM] DAILY MAGNESIUM [CHEM] DAILY - Plan Plan:: Impression: Dementia with AMS; [place] w/CC Failure to thrive Dehydration, ARF--resolved History of CKD Hypernatremia-->resolved, adjust IVF as appropriate AUTI--2 organisms, await C/S; BC +, query contaminant Leukocytosis A Fib with RVR-->started on cardizem drip--resolved Chronic HTN HLD CHF A Fib Anemia GERD Plan: IVF IV ATBs Hold po meds Daily Labs Correct electrolytes Consult CM/SW: Comfort care cf Hospice --UC: K Pneumoniae; E Faecalis --BC G+ cocci --Rocephin will be stopped--K Pneum --E Faecalis--Unasyn --Will repeat BCs after 48 hours of Unasyn-->01/29/19. --IVF adjusted with decrease in Na; replace K LOS>96 hours for treatment urosepsis
[2019-01-29] MEDS ORDERED: Sodium Chloride 0.9% 10 ML Syringe IV PRN (15:56)
[2019-01-29] MEDS ORDERED: Dextrose 5% in Water 1,000 ML IV SCH (17:00)
[2019-01-29] MEDS: Famotidine 20 MG/2 ML SDV IVPUSH SCH (20:48)
[2019-01-29] MEDS ORDERED: Dextrose 5%-0.9% NaCl with KCl 1,000 ML IV SCH (23:00)
[2019-01-30] MEDS: Morphine 10 MG/0.5 ML Oral Syringe SL PRN (09:30)
[2019-01-30] MEDS: fentaNYL 12 MCG/HR Transdermal Patch TRDERM SCH (09:33)
[2019-01-30] MEDS: Ampicillin/Sulbactam Na 3 GM in Sodium Chloride 0.9% 100 ML IV SCH ×2 (09:36→22:26)
[2019-01-30] MEDS: Remove Patch*FENTANYL TRDERM SCH (09:48)
[2019-01-30] MEDS: Acetaminophen 650 MG Supp RECTAL PRN ×2 (09:51→22:53)
[2019-01-30] MEDS ORDERED: LORazepam 2 MG/ML SDV IVPUSH ONE (11:02)
--- NOTE | 2019-01-30 11:48 | PCM.PN ---
- General Info Date of Service: 01/30/19 Subjective Update: Continues to hollwer out, restless; will try sl Ativan or Haldol. Functional Status: Reports: Urinating - Review of Systems General: Reports: No Symptoms HEENT: Reports: No Symptoms Pulmonary: Reports: No Symptoms Cardiovascular: Reports: No Symptoms Gastrointestinal: Reports: No Symptoms Genitourinary: Reports: No Symptoms Musculoskeletal: Reports: No Symptoms Skin: Reports: No Symptoms Neurological: Reports: Pre-Existing Deficit Psychiatric: Reports: No Symptoms - Patient Data Vitals - Most Recent: Last Vital Signs Temp 36.8 C 01/30/19 11:22 Pulse 85 01/30/19 11:22 Resp 17 01/30/19 11:22 BP 133/77 01/30/19 11:22 Pulse Ox 90 L 01/30/19 11:22 Weight - Most Recent: 73.618 kg I&O - Last 24 Hours: Intake & Output 01/29/19 01/30/19 01/30/19 22:59 06:59 14:59 Intake Total 50 100 Output Total 350 250 Balance -300 -150 Lab Results Last 24 Hours: Laboratory Results - last 24 hr 01/30/19 01/30/19 Range/Units 06:40 06:40 WBC 10.90 H (3.98-10.04) K/mm3 RBC 4.04 (3.98-5.22) M/mm3 Hgb 12.1 (11.2-15.7) gm/L Hct 37.0 (34.1-44.9) % MCV 91.6 (79.4-94.8) fl MCH 30.0 (25.6-32.2) pg MCHC 32.7 (32.2-35.5) g/dl RDW Std Deviation 54.9 H (36.4-46.3) fL Plt Count 158 L (182-369) K/mm3 MPV 10.6 (9.4-12.3) fl Neut % (Auto) 81.3 H (34.0-71.1) % Lymph % (Auto) 8.7 L (19.3-51.7) % [place] % (Auto) 8.5 (4.7-12.5) % Eos % (Auto) 0 L (0.7-5.8) Baso % (Auto) 0.1 (0.1-1.2) % Neut # (Auto) 8.86 H (1.56-6.13) K/mm3 Lymph # (Auto) 0.95 L (1.18-3.74) K/mm3 [place] # (Auto) 0.93 H (0.24-0.36) K/mm3 Eos # (Auto) 0.00 L (0.04-0.36) K/mm3 Baso # (Auto) 0.01 (0.01-0.08) K/mm3 Manual Slide Review Abnormal smear Sodium 145 (136-145) mEq/L Potassium 3.9 (3.5-5.1) mEq/L Chloride 111 H (98-107) mEq/L Carbon Dioxide 24 (21-32) mEq/L Anion Gap 13.9 (5-15) BUN 14 (7-18) mg/dL Creatinine 1.2 H (0.55-1.02) mg/dL Est Cr Clr Drug Dosing 27.85 mL/min Estimated GFR (MDRD) 43 (>60) mL/min BUN/Creatinine Ratio 11.7 L (14-18) Glucose 104 (83-115) mg/dL Calcium 8.4 L (8.5-10.1) mg/dL Magnesium 1.8 (1.8-2.4) mg/dl C-Reactive Protein 2.1 H* (<1.0) mg/dL [place] Results Last 24 Hours: Microbiology 01/24/19 08:50 Aerobic Blood Culture - Preliminary Blood - Venous - Lab Draw NO GROWTH AFTER 6 DAYS Anaerobic Blood Culture - Final 01/29/19 17:05 Anaerobic Blood Culture - Final Blood Med Orders - Current: Current Medications Acetaminophen (Tylenol) 600 mg RECTAL Q4H PRN PRN Reason: Pain/Fever Last Admin: 01/30/19 09:51 Dose: 600 mg Famotidine (Pepcid) 20 mg IVPUSH BEDTIME [facility] Last Admin: 01/29/19 20:48 Dose: 20 mg Fentanyl (Duragesic) 12 mcg TRDERM Q72H [facility] Last Admin: 01/30/19 09:33 Dose: 12 mcg Ampicillin Sodium/Sulbactam (Sodium 3 gm/ Sodium Chloride) 100 mls @ 200 mls/ hr IV Q12H [facility] Last Admin: 01/30/19 09:36 Dose: 200 mls/hr Metoprolol Tartrate (Lopressor) 5 mg IVPUSH Q6H PRN PRN Reason: Tachycardia Miscellaneous Information (Remove Patch) 1 ea TRDERM Q72H [facility] Last Admin: 01/30/19 09:48 Dose: 1 ea Morphine Sulfate (Morphine 10 Mg/0.5 Ml Oral Syringe) 7.5 mg PO Q4HR [facility] Sodium Chloride (Saline Flush) 10 ml IV ASDIRECTED PRN PRN Reason: Keep Vein Open Discontinued Medications Acetaminophen (Tylenol) 600 mg RECTAL NOW ONE Stop: 01/23/19 22:23 Last Admin: 01/23/19 22:28 Dose: 600 mg Diltiazem HCl (Diltiazem) Confirm Administered Dose 125 mg .ROUTE .STK-MED ONE Stop: 01/24/19 06:19 Last Admin: 01/24/19 06:21 Dose: Not Given Famotidine (Pepcid) 40 mg IVPUSH BEDTIME [facility] Last Admin: 01/27/19 20:04 Dose: 40 mg Furosemide (Lasix) 20 mg IVPUSH NOW ONE Stop: 01/28/19 11:00 Last Admin: 01/28/19 11:25 Dose: 20 mg Sodium Chloride (Normal Saline) 1,000 mls @ 999 mls/hr IV ONETIME ONE Stop: 01/23/19 17:18 Last Admin: 01/23/19 16:41 Dose: 999 mls/hr Sodium Chloride (Normal Saline) 1,000 mls @ 999 mls/hr IV ONETIME ONE Stop: 01/23/19 18:53 Last Admin: 01/23/19 18:01 Dose: 999 mls/hr Ceftriaxone Sodium 2 gm/ (Sodium Chloride) 100 mls @ 200 mls/hr IV ONETIME ONE Stop: 01/23/19 18:48 Last Admin: 01/23/19 18:39 Dose: 200 mls/hr Lactated Ringer's (Ringers, Lactated) 1,000 mls @ 999 mls/hr IV .BOLUS ONE Stop: 01/23/19 19:33 Last Admin: 01/23/19 19:57 Dose: 999 mls/hr Lactated Ringer's (Ringers, Lactated) 1,000 mls @ 999 mls/hr IV ASDIRECTED [facility] Stop: 01/23/19 21:33 Last Admin: 01/23/19 21:40 Dose: 999 mls/hr Lactated Ringer's (Ringers, Lactated) 1,000 mls @ 150 mls/hr IV ASDIRECTED [facility] Last Infusion: 01/24/19 07:36 Dose: 999 mls/hr Ceftriaxone Sodium 2 gm/ (Sodium Chloride) 100 mls @ 200 mls/hr IV Q24H [facility] Last Admin: 01/26/19 15:37 Dose: 200 mls/hr Diltiazem HCl 125 mg/ Sodium (Chloride) 125 mls @ 5 mls/hr IV TITRATE [facility]; Protocol Last Titration: 01/24/19 11:21 Dose: 0 mg/hr, 0 mls/hr Magnesium Sulfate 4 gm/ Premix 100 mls @ 25 mls/hr IV ONETIME ONE Stop: 01/24/19 07:38 Last Admin: 01/24/19 08:27 Dose: 25 mls/hr Dextrose/Water (Dextrose 5% In Water) 1,000 mls @ 100 mls/hr IV ASDIRECTED [facility] Last Admin: 01/24/19 18:03 Dose: 100 mls/hr Potassium Chloride 10 meq/ (Premix) 100 mls @ 100 mls/hr IV Q1H [facility] Stop: 01/24/19 21:59 Last Admin: 01/24/19 21:44 Dose: 100 mls/hr Potassium Chloride 20 meq/ (Dextrose/Water) 1,010 mls @ 151.5 mls/hr IV ASDIRECTED [facility] Dextrose/Water (Dextrose 5% In Water) 1,000 mls @ 150 mls/hr IV ASDIRECTED [facility] Potassium Chloride 10 meq/ (Premix) 100 mls @ 100 mls/hr IV Q1H [facility] Stop: 01/25/19 11:59 Last Admin: 01/25/19 14:05 Dose: 100 mls/hr Dextrose/Water (Dextrose 5% In Water) 1,000 mls @ 150 mls/hr IV ASDIRECTED [facility] Last Infusion: 01/25/19 23:30 Dose: Infused Lactated Ringer's (Ringers, Lactated) 1,000 mls @ 999 mls/hr IV .BOLUS ONE Stop: 01/25/19 15:09 Last Admin: 01/25/19 15:36 Dose: 999 mls/hr Dextrose/Water (Dextrose 5% In Water) 1,000 mls @ 150 mls/hr IV ASDIRECTED [facility] Dextrose/Water (Dextrose 5% In Water) 1,000 mls @ 150 mls/hr IV ASDIRECTED [facility] Last Admin: 01/27/19 13:58 Dose: 150 mls/hr Magnesium Sulfate 4 gm/ Premix 100 mls @ 25 mls/hr IV ONETIME ONE Stop: 01/26/19 10:00 Last Admin: 01/26/19 11:36 Dose: 25 mls/hr Potassium Chloride 10 meq/ (Premix) 100 mls @ 100 mls/hr IV Q1H [facility] Stop: 01/26/19 19:59 Last Admin: 01/26/19 17:10 Dose: Not Given Potassium Chloride 10 meq/ (Premix) 100 mls @ 100 mls/hr IV Q1H [facility] Stop: 01/26/19 23:59 Last Admin: 01/27/19 01:42 Dose: 100 mls/hr Potassium Chloride/Dextrose/Sod Cl (D5 Ns With 20 Meq Kcl) 1,000 mls @ 75 mls/ hr IV ASDIRECTED [facility] Last Admin: 01/27/19 20:05 Dose: 75 mls/hr Potassium Chloride/Dextrose/Sod Cl (D5 Ns With 20 Meq Kcl) 1,000 mls @ 75 mls/ hr IV ASDIRECTED [facility] Stop: 01/29/19 11:00 Last Admin: 01/28/19 23:17 Dose: 75 mls/hr Potassium Chloride/Dextrose/Sod Cl (D5 Ns With 20 Meq Kcl) 1,000 mls @ 75 mls/ hr IV ASDIRECTED [facility] Stop: 01/30/19 11:00 Dextrose/Water (Dextrose 5% In Water) 1,000 mls @ 75 mls/hr IV ASDIRECTED [facility] Stop: 01/29/19 22:59 Last Admin: 01/29/19 16:18 Dose: 75 mls/hr Lorazepam (Ativan) 0.25 mg IVPUSH Q6H PRN PRN Reason: Anxiety Last Admin: 01/29/19 07:52 Dose: 0.25 mg Lorazepam (Ativan) 1 mg IVPUSH ONETIME ONE Stop: 01/30/19 11:03 Last Admin: 01/30/19 11:16 Dose: 1 mg Methylprednisolone Sodium Succinate (Solu-Medrol) 40 mg IVPUSH DAILY [facility] Last Admin: 01/29/19 08:06 Dose: 40 mg Metoprolol Tartrate (Lopressor) Confirm Administered Dose 5 mg .ROUTE .STK-MED ONE Stop: 01/24/19 05:57 Last Admin: 01/24/19 05:58 Dose: 5 mg Morphine Sulfate (Morphine) 1 mg IVPUSH ONETIME ONE Stop: 01/24/19 09:08 Last Admin: 01/24/19 09:17 Dose: 1 mg Morphine Sulfate (Morphine) 1 mg IVPUSH Q2H PRN PRN Reason: Pain (moderate 4-6) Last Admin: 01/28/19 11:20 Dose: 1 mg Morphine Sulfate (Morphine 10 Mg/0.5 Ml Oral Syringe) 2.5 mg SL Q6H PRN PRN Reason: Pain (moderate 4-6) Last Admin: 01/29/19 08:04 Dose: 2.5 mg Morphine Sulfate (Morphine 10 Mg/0.5 Ml Oral Syringe) 2.5 mg SL Q6H PRN PRN Reason: Pain (moderate 4-6) Morphine Sulfate (Morphine 10 Mg/0.5 Ml Oral Syringe) 5 mg SL Q4H PRN PRN Reason: Pain (moderate 4-6) Last Admin: 01/29/19 16:13 Dose: 2.5 mg Morphine Sulfate (Morphine 20 Mg/Ml Soln) 5 mg SL Q4H [facility] Morphine Sulfate (Morphine 10 Mg/0.5 Ml Oral Syringe) 7.5 mg SL Q4H PRN PRN Reason: Pain (moderate 4-6) Last Admin: 01/30/19 09:30 Dose: 7.5 mg - Exam Quality Assessment: DVT Prophylaxis General: Mild Distress HEENT: Pupils Equal, Pupils Reactive, EOMI Neck: No JVD Lungs: Clear to Auscultation, Normal Respiratory Effort Cardiovascular: Regular Rate GI/Abdominal Exam: Normal Bowel Sounds, Soft, Non-Tender, No Organomegaly, No Distention (Female) Exam: Deferred Back Exam: Normal Inspection Extremities: Normal Inspection, Non-Tender, Normal Capillary Refill Skin: Warm Neurological: No New Focal Deficit Psy/Mental Status: Agitated - Problem List Review Problem List Initiated/Reviewed/Updated: Yes - My Orders Last 24 Hours: My Active Orders 01/29/19 15:56 Sodium Chloride 0.9% [Saline Flush] 10 ml IV ASDIRECTED PRN 01/29/19 17:05 CULTURE BLOOD [BC] Routine 01/30/19 11:36 Heat Therapy [OM.PC] Routine 01/30/19 14:00 Morphine [Morphine 10 MG/0.5 ML Oral Syringe] 7.5 mg PO Q4HR 01/31/19 05:00 BMP [BASIC METABOLIC PANEL,BMP] [CHEM] DAILY CBC WITH AUTO DIFF [HEME] DAILY CRP [C-REACTIVE PROTEIN] [CHEM] DAILY MAGNESIUM [CHEM] DAILY 02/01/19 05:00 BMP [BASIC METABOLIC PANEL,BMP] [CHEM] DAILY CBC WITH AUTO DIFF [HEME] DAILY CRP [C-REACTIVE PROTEIN] [CHEM] DAILY MAGNESIUM [CHEM] DAILY - Plan Plan:: Impression: Dementia with AMS; [place] w/CC Failure to thrive Dehydration, ARF--resolved History of CKD Hypernatremia-->resolved, adjust IVF as appropriate AUTI--2 organisms, await C/S; BC +, query contaminant Leukocytosis A Fib with RVR-->started on cardizem drip--resolved Restless/agitated--ativan/haldol sl Chronic HTN HLD CHF A Fib Anemia GERD Plan: IVF IV ATBs Hold po meds Daily Labs Correct electrolytes Consult CM/SW: Comfort care cf Hospice --UC: K Pneumoniae; E Faecalis --BC G+ cocci --Rocephin will be stopped--K Pneum --E Faecalis--Unasyn --Will repeat BCs after 48 hours of Unasyn-->01/29/19. --IVF adjusted with decrease in Na; replace K LOS>96 hours for treatment urosepsis
[2019-01-30] MEDS ORDERED: Magnesium Sulfate/Water 2 GM in Premix Bag 1 BAG IV ONE (12:00)
[2019-01-30] MEDS: Morphine 10 MG/0.5 ML Oral Syringe PO SCH ×3 (15:54→22:22)
[2019-01-30] MEDS: Famotidine 20 MG/2 ML SDV IVPUSH SCH (22:26)
[2019-01-31] MEDS: Morphine 10 MG/0.5 ML Oral Syringe PO SCH ×5 (04:33→21:57)
[2019-01-31] MEDS ORDERED: Morphine 10 MG/0.5 ML Oral Syringe PO ONE (08:35)
[2019-01-31] MEDS: Acetaminophen 650 MG Supp RECTAL PRN ×2 (08:43→15:34)
[2019-01-31] MEDS: Ampicillin/Sulbactam Na 3 GM in Sodium Chloride 0.9% 100 ML IV SCH ×2 (08:59→21:58)
[2019-01-31] MEDS: Haloperidol Lactate 2 MG/ML Oral Soln 15 ML Bottle PO PRN ×2 (09:11→22:55)
[2019-01-31] MEDS ORDERED: Haloperidol Lactate 2 MG/ML Oral Soln 15 ML Bottle PO ONE (09:57)
--- NOTE | 2019-01-31 11:12 | PCM.PN ---
- General Info Date of Service: 01/31/19 Subjective Update: Patient continues to scream and occasionally moan, will try Ativan po and use sublingual route. Functional Status: Reports: Urinating - Review of Systems General: Reports: No Symptoms HEENT: Reports: No Symptoms Pulmonary: Reports: No Symptoms Cardiovascular: Reports: No Symptoms Gastrointestinal: Reports: No Symptoms Genitourinary: Reports: No Symptoms Musculoskeletal: Reports: No Symptoms Skin: Reports: No Symptoms Neurological: Reports: No Symptoms Psychiatric: Reports: No Symptoms - Patient Data Vitals - Most Recent: Last Vital Signs Temp 37.2 C 01/31/19 08:51 Pulse 98 01/31/19 08:51 Resp 16 01/31/19 08:51 BP 123/97 H 01/31/19 08:51 Pulse Ox 91 L 01/31/19 08:51 Weight - Most Recent: 73.618 kg I&O - Last 24 Hours: Intake & Output 01/30/19 01/31/19 01/31/19 22:59 06:59 14:59 Intake Total 150 100 Output Total 200 225 Balance -50 -125 Lab Results Last 24 Hours: Laboratory Results - last 24 hr 01/31/19 01/31/19 Range/Units 06:00 06:00 WBC 8.25 (3.98-10.04) K/mm3 RBC 3.92 L (3.98-5.22) M/mm3 Hgb 11.7 (11.2-15.7) gm/L Hct 36.6 (34.1-44.9) % MCV 93.4 (79.4-94.8) fl MCH 29.8 (25.6-32.2) pg MCHC 32.0 L (32.2-35.5) g/dl RDW Std Deviation 55.8 H (36.4-46.3) fL Plt Count 158 L (182-369) K/mm3 MPV 10.3 (9.4-12.3) fl Neut % (Auto) 58.1 (34.0-71.1) % Lymph % (Auto) 23.0 (19.3-51.7) % [place] % (Auto) 12.0 (4.7-12.5) % Eos % (Auto) 5.0 (0.7-5.8) Baso % (Auto) 0.1 (0.1-1.2) % Neut # (Auto) 4.79 (1.56-6.13) K/mm3 Lymph # (Auto) 1.90 (1.18-3.74) K/mm3 [place] # (Auto) 0.99 H (0.24-0.36) K/mm3 Eos # (Auto) 0.41 H (0.04-0.36) K/mm3 Baso # (Auto) 0.01 (0.01-0.08) K/mm3 Manual Slide Review Abnormal smear Sodium 148 H (136-145) mEq/L Potassium 3.5 (3.5-5.1) mEq/L Chloride 113 H (98-107) mEq/L Carbon Dioxide 26 (21-32) mEq/L Anion Gap 12.5 (5-15) BUN 17 (7-18) mg/dL Creatinine 1.2 H (0.55-1.02) mg/dL Est Cr Clr Drug Dosing 27.85 mL/min Estimated GFR (MDRD) 43 (>60) mL/min BUN/Creatinine Ratio 14.2 (14-18) Glucose 67 L (83-115) mg/dL Calcium 8.2 L (8.5-10.1) mg/dL Magnesium 2.2 (1.8-2.4) mg/dl C-Reactive Protein 1.1 H* (<1.0) mg/dL [place] Results Last 24 Hours: Microbiology 01/24/19 08:50 Aerobic Blood Culture - Final Blood - Venous - Lab Draw NO GROWTH AFTER 7 DAYS Anaerobic Blood Culture - Final 01/29/19 17:05 Aerobic Blood Culture - Preliminary Blood NO GROWTH AFTER 1 DAY Anaerobic Blood Culture - Final Med Orders - Current: Current Medications Acetaminophen (Tylenol) 600 mg RECTAL Q4H PRN PRN Reason: Pain/Fever Last Admin: 01/31/19 08:43 Dose: 600 mg Famotidine (Pepcid) 20 mg IVPUSH BEDTIME [facility] Last Admin: 01/30/19 22:26 Dose: 20 mg Fentanyl (Duragesic) 12 mcg TRDERM Q72H [facility] Last Admin: 01/30/19 09:33 Dose: 12 mcg Haloperidol Lactate (Haldol 2 Mg/Ml Soln) 0.25 mg PO Q4H PRN PRN Reason: RESTLESSNESS Last Admin: 01/31/19 09:11 Dose: 0.25 mg Ampicillin Sodium/Sulbactam (Sodium 3 gm/ Sodium Chloride) 100 mls @ 200 mls/ hr IV Q12H [facility] Last Admin: 01/31/19 08:59 Dose: 200 mls/hr Potassium Chloride 20 meq/ (Dextrose/Water) 1,010 mls @ 75 mls/hr IV Q13H [facility] Stop: 02/01/19 06:00 Lorazepam (Ativan) 1 mg PO DAILY [facility] Metoprolol Tartrate (Lopressor) 5 mg IVPUSH Q6H PRN PRN Reason: Tachycardia Miscellaneous Information (Remove Patch) 1 ea TRDERM Q72H [facility] Last Admin: 01/30/19 09:48 Dose: 1 ea Morphine Sulfate (Morphine 10 Mg/0.5 Ml Oral Syringe) 5 mg PO Q6H [facility] Last Admin: 01/31/19 04:33 Dose: 5 mg Sodium Chloride (Saline Flush) 10 ml IV ASDIRECTED PRN PRN Reason: Keep Vein Open Discontinued Medications Acetaminophen (Tylenol) 600 mg RECTAL NOW ONE Stop: 01/23/19 22:23 Last Admin: 01/23/19 22:28 Dose: 600 mg Diltiazem HCl (Diltiazem) Confirm Administered Dose 125 mg .ROUTE .STK-MED ONE Stop: 01/24/19 06:19 Last Admin: 01/24/19 06:21 Dose: Not Given Famotidine (Pepcid) 40 mg IVPUSH BEDTIME [facility] Last Admin: 01/27/19 20:04 Dose: 40 mg Furosemide (Lasix) 20 mg IVPUSH NOW ONE Stop: 01/28/19 11:00 Last Admin: 01/28/19 11:25 Dose: 20 mg Haloperidol Lactate (Haldol 2 Mg/Ml Soln) 1 mg PO ONETIME ONE Stop: 01/31/19 09:58 Last Admin: 01/31/19 10:40 Dose: 1 mg Sodium Chloride (Normal Saline) 1,000 mls @ 999 mls/hr IV ONETIME ONE Stop: 01/23/19 17:18 Last Admin: 01/23/19 16:41 Dose: 999 mls/hr Sodium Chloride (Normal Saline) 1,000 mls @ 999 mls/hr IV ONETIME ONE Stop: 01/23/19 18:53 Last Admin: 01/23/19 18:01 Dose: 999 mls/hr Ceftriaxone Sodium 2 gm/ (Sodium Chloride) 100 mls @ 200 mls/hr IV ONETIME ONE Stop: 01/23/19 18:48 Last Admin: 01/23/19 18:39 Dose: 200 mls/hr Lactated Ringer's (Ringers, Lactated) 1,000 mls @ 999 mls/hr IV .BOLUS ONE Stop: 01/23/19 19:33 Last Admin: 01/23/19 19:57 Dose: 999 mls/hr Lactated Ringer's (Ringers, Lactated) 1,000 mls @ 999 mls/hr IV ASDIRECTED [facility] Stop: 01/23/19 21:33 Last Admin: 01/23/19 21:40 Dose: 999 mls/hr Lactated Ringer's (Ringers, Lactated) 1,000 mls @ 150 mls/hr IV ASDIRECTED [facility] Last Infusion: 01/24/19 07:36 Dose: 999 mls/hr Ceftriaxone Sodium 2 gm/ (Sodium Chloride) 100 mls @ 200 mls/hr IV Q24H [facility] Last Admin: 01/26/19 15:37 Dose: 200 mls/hr Diltiazem HCl 125 mg/ Sodium (Chloride) 125 mls @ 5 mls/hr IV TITRATE [facility]; Protocol Last Titration: 01/24/19 11:21 Dose: 0 mg/hr, 0 mls/hr Magnesium Sulfate 4 gm/ Premix 100 mls @ 25 mls/hr IV ONETIME ONE Stop: 01/24/19 07:38 Last Admin: 01/24/19 08:27 Dose: 25 mls/hr Dextrose/Water (Dextrose 5% In Water) 1,000 mls @ 100 mls/hr IV ASDIRECTED [facility] Last Admin: 01/24/19 18:03 Dose: 100 mls/hr Potassium Chloride 10 meq/ (Premix) 100 mls @ 100 mls/hr IV Q1H [facility] Stop: 01/24/19 21:59 Last Admin: 01/24/19 21:44 Dose: 100 mls/hr Potassium Chloride 20 meq/ (Dextrose/Water) 1,010 mls @ 151.5 mls/hr IV ASDIRECTED [facility] Dextrose/Water (Dextrose 5% In Water) 1,000 mls @ 150 mls/hr IV ASDIRECTED [facility] Potassium Chloride 10 meq/ (Premix) 100 mls @ 100 mls/hr IV Q1H [facility] Stop: 01/25/19 11:59 Last Admin: 01/25/19 14:05 Dose: 100 mls/hr Dextrose/Water (Dextrose 5% In Water) 1,000 mls @ 150 mls/hr IV ASDIRECTED [facility] Last Infusion: 01/25/19 23:30 Dose: Infused Lactated Ringer's (Ringers, Lactated) 1,000 mls @ 999 mls/hr IV .BOLUS ONE Stop: 01/25/19 15:09 Last Admin: 01/25/19 15:36 Dose: 999 mls/hr Dextrose/Water (Dextrose 5% In Water) 1,000 mls @ 150 mls/hr IV ASDIRECTED [facility] Dextrose/Water (Dextrose 5% In Water) 1,000 mls @ 150 mls/hr IV ASDIRECTED [facility] Last Admin: 01/27/19 13:58 Dose: 150 mls/hr Magnesium Sulfate 4 gm/ Premix 100 mls @ 25 mls/hr IV ONETIME ONE Stop: 01/26/19 10:00 Last Admin: 01/26/19 11:36 Dose: 25 mls/hr Potassium Chloride 10 meq/ (Premix) 100 mls @ 100 mls/hr IV Q1H [facility] Stop: 01/26/19 19:59 Last Admin: 01/26/19 17:10 Dose: Not Given Potassium Chloride 10 meq/ (Premix) 100 mls @ 100 mls/hr IV Q1H [facility] Stop: 01/26/19 23:59 Last Admin: 01/27/19 01:42 Dose: 100 mls/hr Potassium Chloride/Dextrose/Sod Cl (D5 Ns With 20 Meq Kcl) 1,000 mls @ 75 mls/ hr IV ASDIRECTED [facility] Last Admin: 01/27/19 20:05 Dose: 75 mls/hr Potassium Chloride/Dextrose/Sod Cl (D5 Ns With 20 Meq Kcl) 1,000 mls @ 75 mls/ hr IV ASDIRECTED [facility] Stop: 01/29/19 11:00 Last Admin: 01/28/19 23:17 Dose: 75 mls/hr Potassium Chloride/Dextrose/Sod Cl (D5 Ns With 20 Meq Kcl) 1,000 mls @ 75 mls/ hr IV ASDIRECTED [facility] Stop: 01/30/19 11:00 Dextrose/Water (Dextrose 5% In Water) 1,000 mls @ 75 mls/hr IV ASDIRECTED [facility] Stop: 01/29/19 22:59 Last Admin: 01/29/19 16:18 Dose: 75 mls/hr Magnesium Sulfate 2 gm/ Premix 50 mls @ 25 mls/hr IV ONETIME ONE Stop: 01/30/19 13:59 Last Admin: 01/30/19 14:36 Dose: 25 mls/hr Lorazepam (Ativan) 0.25 mg IVPUSH Q6H PRN PRN Reason: Anxiety Last Admin: 01/29/19 07:52 Dose: 0.25 mg Lorazepam (Ativan) 1 mg IVPUSH ONETIME ONE Stop: 01/30/19 11:03 Last Admin: 01/30/19 11:16 Dose: 1 mg Methylprednisolone Sodium Succinate (Solu-Medrol) 40 mg IVPUSH DAILY [facility] Last Admin: 01/29/19 08:06 Dose: 40 mg Metoprolol Tartrate (Lopressor) Confirm Administered Dose 5 mg .ROUTE .STK-MED ONE Stop: 01/24/19 05:57 Last Admin: 01/24/19 05:58 Dose: 5 mg Morphine Sulfate (Morphine) 1 mg IVPUSH ONETIME ONE Stop: 01/24/19 09:08 Last Admin: 01/24/19 09:17 Dose: 1 mg Morphine Sulfate (Morphine) 1 mg IVPUSH Q2H PRN PRN Reason: Pain (moderate 4-6) Last Admin: 01/28/19 11:20 Dose: 1 mg Morphine Sulfate (Morphine 10 Mg/0.5 Ml Oral Syringe) 2.5 mg SL Q6H PRN PRN Reason: Pain (moderate 4-6) Last Admin: 01/29/19 08:04 Dose: 2.5 mg Morphine Sulfate (Morphine 10 Mg/0.5 Ml Oral Syringe) 2.5 mg SL Q6H PRN PRN Reason: Pain (moderate 4-6) Morphine Sulfate (Morphine 10 Mg/0.5 Ml Oral Syringe) 5 mg SL Q4H PRN PRN Reason: Pain (moderate 4-6) Last Admin: 01/29/19 16:13 Dose: 2.5 mg Morphine Sulfate (Morphine 20 Mg/Ml Soln) 5 mg SL Q4H [facility] Morphine Sulfate (Morphine 10 Mg/0.5 Ml Oral Syringe) 7.5 mg SL Q4H PRN PRN Reason: Pain (moderate 4-6) Last Admin: 01/30/19 09:30 Dose: 7.5 mg Morphine Sulfate (Morphine 10 Mg/0.5 Ml Oral Syringe) 7.5 mg PO Q4HR [facility] Last Admin: 01/30/19 16:04 Dose: 7.5 mg Morphine Sulfate (Morphine 10 Mg/0.5 Ml Oral Syringe) 7.5 mg PO ONETIME ONE Stop: 01/31/19 08:36 Last Admin: 01/31/19 08:38 Dose: 7.5 mg - Exam Quality Assessment: Supplemental Oxygen General: Sedated HEENT: Pupils Equal, Pupils Reactive, EOMI Neck: No JVD Lungs: Normal Respiratory Effort Cardiovascular: Regular Rate, Regular Rhythm GI/Abdominal Exam: Normal Bowel Sounds, Soft, Non-Tender, No Organomegaly, No Distention (Female) Exam: Deferred Back Exam: Normal Inspection Extremities: Normal Inspection, Non-Tender, Normal Capillary Refill - Problem List Review Problem List Initiated/Reviewed/Updated: Yes - My Orders Last 24 Hours: My Active Orders 01/30/19 11:36 Heat Therapy [OM.PC] Routine 01/30/19 13:00 Haloperidol Lactate [Haldol 2 MG/ML Soln] 0.25 mg PO Q4H PRN 01/30/19 15:45 CULTURE BLOOD [BC] Routine 01/30/19 22:00 Morphine [Morphine 10 MG/0.5 ML Oral Syringe] 5 mg PO Q6H 01/31/19 11:15 LORazepam [Ativan] 1 mg PO DAILY 01/31/19 18:00 Potassium Chloride 20 meq Dextrose 5% in Water 1,000 ml IV Q13H 02/01/19 05:00 BMP [BASIC METABOLIC PANEL,BMP] [CHEM] DAILY CBC WITH AUTO DIFF [HEME] DAILY CRP [C-REACTIVE PROTEIN] [CHEM] DAILY MAGNESIUM [CHEM] DAILY - Plan Plan:: Impression: Dementia with AMS; Duque w/CC Failure to thrive Dehydration, ARF--resolved History of CKD Hypernatremia-->resolved, adjust IVF as appropriate AUTI--2 organisms, await C/S; BC +, query contaminant Leukocytosis A Fib with RVR-->started on cardizem drip--resolved Restless/agitated--ativan/haldol sl Chronic HTN HLD CHF A Fib Anemia GERD Plan: IVF IV ATBs Hold po meds Daily Labs Correct electrolytes Consult CM/SW: Comfort care cf Hospice --UC: K Pneumoniae; E Faecalis --BC G+ cocci --Rocephin will be stopped--K Pneum --E Faecalis--Unasyn--will stop on 02/01/19 --Will repeat BCs after 48 hours of Unasyn-->01/29/19. --IVF adjusted with decrease in Na; replace K LOS>96 hours for treatment urosepsis; DC on 02/02/19.
[2019-01-31] MEDS ORDERED: LORazepam 1 MG Tab PO SCH (11:15)
[2019-01-31] MEDS ORDERED: Potassium Chloride 20 MEQ in Dextrose 5% in Water 1,000 ML IV SCH ×2 (18:00)
[2019-01-31] MEDS: Famotidine 20 MG/2 ML SDV IVPUSH SCH (21:58)
[2019-02-01] MEDS: Acetaminophen 650 MG Supp RECTAL PRN ×2 (00:48→23:21)
[2019-02-01] MEDS ORDERED: Morphine 10 MG/0.5 ML Oral Syringe PO SCH (03:00)
[2019-02-01] MEDS: Morphine 10 MG/0.5 ML Oral Syringe PO SCH ×5 (05:55→22:08)
[2019-02-01] MEDS ORDERED: Potassium Chloride 20 MEQ in Dextrose 5% in Water 1,000 ML IV ONE ×2 (08:45)
[2019-02-01] MEDS: Ampicillin/Sulbactam Na 3 GM in Sodium Chloride 0.9% 100 ML IV SCH ×2 (09:13→22:11)
[2019-02-01] MEDS: LORazepam 1 MG Tab PO SCH ×2 (09:13→20:00)
--- NOTE | 2019-02-01 11:25 | PCM.PN ---
- General Info Date of Service: 02/01/19 Subjective Update: Adjustment of pain meds, antianxiety med today, will DC 02/02/19. Functional Status: Reports: Pain Controlled, Urinating - Review of Systems General: Reports: Weakness HEENT: Reports: No Symptoms Pulmonary: Reports: No Symptoms Cardiovascular: Reports: No Symptoms Gastrointestinal: Reports: No Symptoms Genitourinary: Reports: No Symptoms Musculoskeletal: Reports: No Symptoms Skin: Reports: No Symptoms Neurological: Reports: No Symptoms Psychiatric: Reports: No Symptoms - Patient Data Vitals - Most Recent: Last Vital Signs Temp 37.7 C 01/31/19 22:15 Pulse 73 01/31/19 22:15 Resp 14 01/31/19 22:15 BP 130/77 01/31/19 22:15 Pulse Ox 94 L 01/31/19 22:15 Weight - Most Recent: 73.618 kg I&O - Last 24 Hours: Intake & Output 01/31/19 02/01/19 02/01/19 21:59 06:59 14:59 Intake Total Output Total Balance Lab Results Last 24 Hours: Laboratory Results - last 24 hr 02/01/19 02/01/19 Range/Units 05:50 05:50 WBC 6.55 (3.98-10.04) K/mm3 RBC 3.77 L (3.98-5.22) M/mm3 Hgb 11.3 (11.2-15.7) gm/L Hct 34.9 (34.1-44.9) % MCV 92.6 (79.4-94.8) fl MCH 30.0 (25.6-32.2) pg MCHC 32.4 (32.2-35.5) g/dl RDW Std Deviation 54.9 H (36.4-46.3) fL Plt Count 132 L (182-369) K/mm3 MPV 9.8 (9.4-12.3) fl Neut % (Auto) 55.2 (34.0-71.1) % Lymph % (Auto) 25.5 (19.3-51.7) % [place] % (Auto) 9.0 (4.7-12.5) % Eos % (Auto) 8.9 H (0.7-5.8) Baso % (Auto) 0.0 L (0.1-1.2) % Neut # (Auto) 3.62 (1.56-6.13) K/mm3 Lymph # (Auto) 1.67 (1.18-3.74) K/mm3 [place] # (Auto) 0.59 H (0.24-0.36) K/mm3 Eos # (Auto) 0.58 H (0.04-0.36) K/mm3 Baso # (Auto) 0.00 L (0.01-0.08) K/mm3 Sodium 143 (136-145) mEq/L Potassium 3.4 L (3.5-5.1) mEq/L Chloride 109 H (98-107) mEq/L Carbon Dioxide 26 (21-32) mEq/L Anion Gap 11.4 (5-15) BUN 13 (7-18) mg/dL Creatinine 1.1 H (0.55-1.02) mg/dL Est Cr Clr Drug Dosing 30.38 mL/min Estimated GFR (MDRD) 47 (>60) mL/min BUN/Creatinine Ratio 11.8 L (14-18) Glucose 84 (83-115) mg/dL Calcium 8.1 L (8.5-10.1) mg/dL Magnesium 2.0 (1.8-2.4) mg/dl C-Reactive Protein 0.9 (<1.0) mg/dL [place] Results Last 24 Hours: Microbiology 01/29/19 17:05 Aerobic Blood Culture - Preliminary Blood NO GROWTH AFTER 2 DAYS Anaerobic Blood Culture - Final 01/30/19 15:45 Aerobic Blood Culture - Preliminary Blood NO GROWTH AFTER 1 DAY Anaerobic Blood Culture - Preliminary NO GROWTH AFTER 1 DAY 01/24/19 08:50 Aerobic Blood Culture - Final Blood - Venous - Lab Draw NO GROWTH AFTER 7 DAYS Anaerobic Blood Culture - Final Med Orders - Current: Current Medications Acetaminophen (Tylenol) 600 mg RECTAL Q4H PRN PRN Reason: Pain/Fever Last Admin: 02/01/19 00:48 Dose: 600 mg Famotidine (Pepcid) 20 mg IVPUSH BEDTIME [facility] Last Admin: 01/31/19 21:58 Dose: 20 mg Fentanyl (Duragesic) 12 mcg TRDERM Q72H [place] Last Admin: 01/30/19 09:33 Dose: 12 mcg Haloperidol Lactate (Haldol 2 Mg/Ml Soln) 0.25 mg PO Q4H PRN PRN Reason: RESTLESSNESS Last Admin: 01/31/19 22:55 Dose: 0.25 mg Ampicillin Sodium/Sulbactam (Sodium 3 gm/ Sodium Chloride) 100 mls @ 200 mls/ hr IV Q12H [facility] Last Admin: 02/01/19 09:13 Dose: 200 mls/hr Potassium Chloride 20 meq/ (Dextrose/Water) 1,010 mls @ 125 mls/hr IV ONETIME ONE Stop: 02/01/19 16:49 Last Admin: 02/01/19 10:19 Dose: 125 mls/hr Lorazepam (Ativan) 1 mg PO BID@0700,1900 [facility] Last Admin: 02/01/19 09:13 Dose: 1 mg Metoprolol Tartrate (Lopressor) 5 mg IVPUSH Q6H PRN PRN Reason: Tachycardia Miscellaneous Information (Remove Patch) 1 ea TRDERM Q72H [facility] Last Admin: 01/30/19 09:48 Dose: 1 ea Morphine Sulfate (Morphine 10 Mg/0.5 Ml Oral Syringe) 7.5 mg PO 0600,1000,1400 [facility] Last Admin: 02/01/19 10:20 Dose: 7.5 mg Morphine Sulfate (Morphine 10 Mg/0.5 Ml Oral Syringe) 7.5 mg PO TID@0300,1700, 2100 [facility] Sodium Chloride (Saline Flush) 10 ml IV ASDIRECTED PRN PRN Reason: Keep Vein Open Discontinued Medications Acetaminophen (Tylenol) 600 mg RECTAL NOW ONE Stop: 01/23/19 22:23 Last Admin: 01/23/19 22:28 Dose: 600 mg Acetaminophen (Tylenol) 600 mg RECTAL Q4H PRN PRN Reason: Pain/Fever Last Admin: 01/31/19 08:43 Dose: 600 mg Diltiazem HCl (Diltiazem) Confirm Administered Dose 125 mg .ROUTE .STK-MED ONE Stop: 01/24/19 06:19 Last Admin: 01/24/19 06:21 Dose: Not Given Famotidine (Pepcid) 40 mg IVPUSH BEDTIME [facility] Last Admin: 01/27/19 20:04 Dose: 40 mg Furosemide (Lasix) 20 mg IVPUSH NOW ONE Stop: 01/28/19 11:00 Last Admin: 01/28/19 11:25 Dose: 20 mg Haloperidol Lactate (Haldol 2 Mg/Ml Soln) 1 mg PO ONETIME ONE Stop: 01/31/19 09:58 Last Admin: 01/31/19 10:40 Dose: 1 mg Sodium Chloride (Normal Saline) 1,000 mls @ 999 mls/hr IV ONETIME ONE Stop: 01/23/19 17:18 Last Admin: 01/23/19 16:41 Dose: 999 mls/hr Sodium Chloride (Normal Saline) 1,000 mls @ 999 mls/hr IV ONETIME ONE Stop: 01/23/19 18:53 Last Admin: 01/23/19 18:01 Dose: 999 mls/hr Ceftriaxone Sodium 2 gm/ (Sodium Chloride) 100 mls @ 200 mls/hr IV ONETIME ONE Stop: 01/23/19 18:48 Last Admin: 01/23/19 18:39 Dose: 200 mls/hr Lactated Ringer's (Ringers, Lactated) 1,000 mls @ 999 mls/hr IV .BOLUS ONE Stop: 01/23/19 19:33 Last Admin: 01/23/19 19:57 Dose: 999 mls/hr Lactated Ringer's (Ringers, Lactated) 1,000 mls @ 999 mls/hr IV ASDIRECTED [place] Stop: 01/23/19 21:33 Last Admin: 01/23/19 21:40 Dose: 999 mls/hr Lactated Ringer's (Ringers, Lactated) 1,000 mls @ 150 mls/hr IV ASDIRECTED [place] Last Infusion: 01/24/19 07:36 Dose: 999 mls/hr Ceftriaxone Sodium 2 gm/ (Sodium Chloride) 100 mls @ 200 mls/hr IV Q24H [place] Last Admin: 01/26/19 15:37 Dose: 200 mls/hr Diltiazem HCl 125 mg/ Sodium (Chloride) 125 mls @ 5 mls/hr IV TITRATE [place]; Protocol Last Titration: 01/24/19 11:21 Dose: 0 mg/hr, 0 mls/hr Magnesium Sulfate 4 gm/ Premix 100 mls @ 25 mls/hr IV ONETIME ONE Stop: 01/24/19 07:38 Last Admin: 01/24/19 08:27 Dose: 25 mls/hr Dextrose/Water (Dextrose 5% In Water) 1,000 mls @ 100 mls/hr IV ASDIRECTED [place] Last Admin: 01/24/19 18:03 Dose: 100 mls/hr Potassium Chloride 10 meq/ (Premix) 100 mls @ 100 mls/hr IV Q1H [place] Stop: 01/24/19 21:59 Last Admin: 01/24/19 21:44 Dose: 100 mls/hr Potassium Chloride 20 meq/ (Dextrose/Water) 1,010 mls @ 151.5 mls/hr IV ASDIRECTED [place] Dextrose/Water (Dextrose 5% In Water) 1,000 mls @ 150 mls/hr IV ASDIRECTED [place] Potassium Chloride 10 meq/ (Premix) 100 mls @ 100 mls/hr IV Q1H [place] Stop: 01/25/19 11:59 Last Admin: 01/25/19 14:05 Dose: 100 mls/hr Dextrose/Water (Dextrose 5% In Water) 1,000 mls @ 150 mls/hr IV ASDIRECTED [place] Last Infusion: 01/25/19 23:30 Dose: Infused Lactated Ringer's (Ringers, Lactated) 1,000 mls @ 999 mls/hr IV .BOLUS ONE Stop: 01/25/19 15:09 Last Admin: 01/25/19 15:36 Dose: 999 mls/hr Dextrose/Water (Dextrose 5% In Water) 1,000 mls @ 150 mls/hr IV ASDIRECTED [place] Dextrose/Water (Dextrose 5% In Water) 1,000 mls @ 150 mls/hr IV ASDIRECTED [place] Last Admin: 01/27/19 13:58 Dose: 150 mls/hr Magnesium Sulfate 4 gm/ Premix 100 mls @ 25 mls/hr IV ONETIME ONE Stop: 01/26/19 10:00 Last Admin: 01/26/19 11:36 Dose: 25 mls/hr Potassium Chloride 10 meq/ (Premix) 100 mls @ 100 mls/hr IV Q1H [place] Stop: 01/26/19 19:59 Last Admin: 01/26/19 17:10 Dose: Not Given Potassium Chloride 10 meq/ (Premix) 100 mls @ 100 mls/hr IV Q1H [place] Stop: 01/26/19 23:59 Last Admin: 01/27/19 01:42 Dose: 100 mls/hr Potassium Chloride/Dextrose/Sod Cl (D5 Ns With 20 Meq Kcl) 1,000 mls @ 75 mls/ hr IV ASDIRECTED [facility] Last Admin: 01/27/19 20:05 Dose: 75 mls/hr Potassium Chloride/Dextrose/Sod Cl (D5 Ns With 20 Meq Kcl) 1,000 mls @ 75 mls/ hr IV ASDIRECTED [facility] Stop: 01/29/19 11:00 Last Admin: 01/28/19 23:17 Dose: 75 mls/hr Potassium Chloride/Dextrose/Sod Cl (D5 Ns With 20 Meq Kcl) 1,000 mls @ 75 mls/ hr IV ASDIRECTED [facility] Stop: 01/30/19 11:00 Dextrose/Water (Dextrose 5% In Water) 1,000 mls @ 75 mls/hr IV ASDIRECTED [facility] Stop: 01/29/19 22:59 Last Admin: 01/29/19 16:18 Dose: 75 mls/hr Magnesium Sulfate 2 gm/ Premix 50 mls @ 25 mls/hr IV ONETIME ONE Stop: 01/30/19 13:59 Last Admin: 01/30/19 14:36 Dose: 25 mls/hr Potassium Chloride 20 meq/ (Dextrose/Water) 1,010 mls @ 75 mls/hr IV Q13H [facility] Stop: 02/01/19 06:00 Last Admin: 01/31/19 17:42 Dose: 75 mls/hr Lorazepam (Ativan) 0.25 mg IVPUSH Q6H PRN PRN Reason: Anxiety Last Admin: 01/29/19 07:52 Dose: 0.25 mg Lorazepam (Ativan) 1 mg IVPUSH ONETIME ONE Stop: 01/30/19 11:03 Last Admin: 01/30/19 11:16 Dose: 1 mg Lorazepam (Ativan) 1 mg PO DAILY [facility] Last Admin: 01/31/19 12:14 Dose: 1 mg Methylprednisolone Sodium Succinate (Solu-Medrol) 40 mg IVPUSH DAILY [facility] Last Admin: 01/29/19 08:06 Dose: 40 mg Metoprolol Tartrate (Lopressor) Confirm Administered Dose 5 mg .ROUTE .STK-MED ONE Stop: 01/24/19 05:57 Last Admin: 01/24/19 05:58 Dose: 5 mg Morphine Sulfate (Morphine) 1 mg IVPUSH ONETIME ONE Stop: 01/24/19 09:08 Last Admin: 01/24/19 09:17 Dose: 1 mg Morphine Sulfate (Morphine) 1 mg IVPUSH Q2H PRN PRN Reason: Pain (moderate 4-6) Last Admin: 01/28/19 11:20 Dose: 1 mg Morphine Sulfate (Morphine 10 Mg/0.5 Ml Oral Syringe) 2.5 mg SL Q6H PRN PRN Reason: Pain (moderate 4-6) Last Admin: 01/29/19 08:04 Dose: 2.5 mg Morphine Sulfate (Morphine 10 Mg/0.5 Ml Oral Syringe) 2.5 mg SL Q6H PRN PRN Reason: Pain (moderate 4-6) Morphine Sulfate (Morphine 10 Mg/0.5 Ml Oral Syringe) 5 mg SL Q4H PRN PRN Reason: Pain (moderate 4-6) Last Admin: 01/29/19 16:13 Dose: 2.5 mg Morphine Sulfate (Morphine 20 Mg/Ml Soln) 5 mg SL Q4H [place] Morphine Sulfate (Morphine 10 Mg/0.5 Ml Oral Syringe) 7.5 mg SL Q4H PRN PRN Reason: Pain (moderate 4-6) Last Admin: 01/30/19 09:30 Dose: 7.5 mg Morphine Sulfate (Morphine 10 Mg/0.5 Ml Oral Syringe) 7.5 mg PO Q4HR [facility] Last Admin: 01/30/19 16:04 Dose: 7.5 mg Morphine Sulfate (Morphine 10 Mg/0.5 Ml Oral Syringe) 5 mg PO Q6H [facility] Last Admin: 01/31/19 15:31 Dose: 5 mg Morphine Sulfate (Morphine 10 Mg/0.5 Ml Oral Syringe) 7.5 mg PO ONETIME ONE Stop: 01/31/19 08:36 Last Admin: 01/31/19 08:38 Dose: 7.5 mg Morphine Sulfate (Morphine 10 Mg/0.5 Ml Oral Syringe) 7.5 mg PO 1700,2100 [facility] Last Admin: 01/31/19 21:57 Dose: 7.5 mg Morphine Sulfate (Morphine 10 Mg/0.5 Ml Oral Syringe) 5 mg PO DAILY@0300 [facility] Last Admin: 02/01/19 03:49 Dose: 5 mg - Exam Quality Assessment: DVT Prophylaxis General: Sedated HEENT: Pupils Equal, Pupils Reactive, EOMI Neck: No JVD Lungs: Normal Respiratory Effort Cardiovascular: Regular Rate, Regular Rhythm GI/Abdominal Exam: Normal Bowel Sounds, Soft, Non-Tender, No Organomegaly, No Distention (Female) Exam: Deferred Back Exam: Normal Inspection Extremities: Normal Inspection, Non-Tender, Normal Capillary Refill Skin: Warm Neurological: No New Focal Deficit - Problem List Review Problem List Initiated/Reviewed/Updated: Yes - My Orders Last 24 Hours: My Active Orders 01/31/19 14:23 Acetaminophen [Tylenol] 600 mg RECTAL Q4H PRN 01/31/19 19:52 Patient Status [ADT] Routine 02/01/19 06:00 Morphine [Morphine 10 MG/0.5 ML Oral Syringe] 7.5 mg PO 0600,1000,1400 02/01/19 08:30 LORazepam [Ativan] 1 mg PO BID@0700,1900 02/01/19 08:45 Potassium Chloride 20 meq Dextrose 5% in Water 1,000 ml IV ONETIME 02/01/19 17:00 Morphine [Morphine 10 MG/0.5 ML Oral Syringe] 7.5 mg PO TID@0300,1700,2100 - Plan Plan:: Impression: Dementia with AMS; [place] w/CC Failure to thrive Dehydration, ARF--resolved History of CKD Hypernatremia-->resolved, adjust IVF as appropriate AUTI--2 organisms, await C/S; BC +, query contaminant Leukocytosis A Fib with RVR-->started on cardizem drip--resolved Restless/agitated--ativan/haldol sl Chronic HTN HLD CHF A Fib Anemia GERD Plan: IVF IV ATBs Hold po meds; will use sublingual route. Daily Labs Correct electrolytes Consult CM/SW: Comfort care cf Hospice --UC: K Pneumoniae; E Faecalis --BC G+ cocci --Rocephin will be stopped--K Pneum --E Faecalis--Unasyn--will stop on 02/01/19 --Will repeat BCs after 48 hours of Unasyn-->01/29/19. --IVF adjusted with decrease in Na; replace K LOS>96 hours for treatment urosepsis; DC on 02/02/19.
[2019-02-01] MEDS: Haloperidol Lactate 2 MG/ML Oral Soln 15 ML Bottle PO PRN ×2 (11:54→16:51)
[2019-02-01] MEDS: Famotidine 20 MG/2 ML SDV IVPUSH SCH (22:10)
[2019-02-02] MEDS: Haloperidol Lactate 2 MG/ML Oral Soln 15 ML Bottle PO PRN (01:12)
[2019-02-02] MEDS: Morphine 10 MG/0.5 ML Oral Syringe PO SCH ×4 (04:00→13:51)
[2019-02-02] MEDS: LORazepam 1 MG Tab PO SCH (06:56)
[2019-02-02] MEDS: Acetaminophen 650 MG Supp RECTAL PRN (09:47)
[2019-02-02] MEDS: fentaNYL 12 MCG/HR Transdermal Patch TRDERM SCH (11:45)
[2019-02-02] MEDS: Remove Patch*FENTANYL TRDERM SCH (11:46)
--- NOTE | 2019-02-02 11:49 | PCM.DCSUM1 ---
Discharge Summary - Hospital Course Free Text/Narrative:: 83 year old female with dementia presented with ARF, electrolyte disturbances in the setting of a UTI. She required IV ATBs, IVF, and pain control during her stay. The patient no longer voluntarily eats, and the family opted for IV hydration rather than a feeding tube. Code status was changed to DNR/DNI Comfort Care. She required frequent adjustment of pain meds for return to the SNF. At the time of transfer, she was DNR/DNI Comfort Care. The family will be requesting a Hospice consult when she returns to [facility]. The patient returned with a Duque Catheter. HPI Initial Comments: 83 year old female with a history of dementia presents after over a week long episode of decreased oral intake. At the time of presentation, she is unable to open her eyes, follow simple commands. The history was provided by the ED provider and her family present, spouse and daughter. The patient had orthopedic surgery for her right upper and lower extremities. Since that time it is reported that she has never returned to her baseline mental functioning. She has profoundly abnormal electrolytes and is in acute renal failure. The patient will be admitted to [facility] with telemetry, she is a DNR/DNI. Diagnosis: Stroke: No - Discharge Data Discharge Date: 02/02/19 Discharge Disposition: DC/Tfer to SNF 03 Condition: Poor - Patient Instructions Diet: NPO Activity: Bedrest Driving: Do Not Drive Showering/Bathing: No Showering Notify Provider of: Fever, Increased Pain, Nausea and/or Vomiting - Discharge Plan *PRESCRIPTION DRUG MONITORING PROGRAM REVIEWED*: Not Applicable *COPY OF PRESCRIPTION DRUG MONITORING REPORT IN PATIENT HUSSAIN: Not Applicable Prescriptions/Med Rec: fentaNYL [Duragesic] 12 mcg TRDERM Q72H #14 patch Haloperidol Lactate [Haldol 2 MG/ML Soln] 0.25 mg PO Q4H PRN #20 bottle PRN Reason: RESTLESSNESS LORazepam [Ativan] 1 mg PO BID@0700,1900 #30 tablet Morphine [Morphine 10 MG/0.5 ML Oral Syringe] 7.5 mg PO TID@0300,1700,2100 #10 syringe Morphine [Morphine 10 MG/0.5 ML Oral Syringe] 7.5 mg PO 0600,1000,1400 #7 syringe Home Medications: Home Meds Haloperidol Lactate [Haldol 2 MG/ML Soln] 0.25 mg PO Q4H PRN #20 bottle [Rx] LORazepam [Ativan] 1 mg PO BID@0700,1900 #30 tablet 02/02/19 [Rx] Morphine [Morphine 10 MG/0.5 ML Oral Syringe] 7.5 mg PO 0600,1000,1400 #7 syringe 02/02/19 [Rx] Morphine [Morphine 10 MG/0.5 ML Oral Syringe] 7.5 mg PO TID@0300,1700,2100 #10 syringe 02/02/19 [Rx] fentaNYL [Duragesic] 12 mcg TRDERM Q72H #14 patch 02/02/19 [Rx] Oxygen Therapy Mode: Room Air Patient Handouts: Urinary Tract Infection, Adult, [id number], Dehydration, Elderly, Dementia, [id number], Rehydration, Elderly Forms: ED Department Discharge Referrals: Evaristo Tian MD [Primary Care Provider] - - Discharge Summary/Plan Comment DC Time >30 min.: No Discharge Summary/Plan Comment: Impression: Dementia with AMS; Duque w/CC Failure to thrive Dehydration, ARF--resolved History of CKD Hypernatremia-->resolved, adjust IVF as appropriate AUTI--2 organisms, await C/S; BC +, query contaminant Leukocytosis A Fib with RVR-->started on cardizem drip--resolved Restless/agitated--ativan/haldol sl Chronic HTN HLD CHF A Fib Anemia GERD Plan: IVF IV ATBs Hold po meds; will use sublingual route. Daily Labs Correct electrolytes Consult CM/SW: Comfort care cf Hospice --UC: K Pneumoniae; E Faecalis --BC G+ cocci --Rocephin will be stopped--K Pneum --E Faecalis--Unasyn--will stop on 02/01/19 --Will repeat BCs after 48 hours of Unasyn-->01/29/19. --IVF adjusted with decrease in Na; replace K LOS>96 hours for treatment urosepsis; DC on 02/02/19. - General Info Date of Service: 01/23/19 Functional Status: Reports: Pain Controlled, Urinating - Review of Systems General: Reports: No Symptoms HEENT: Reports: No Symptoms Pulmonary: Reports: No Symptoms Cardiovascular: Reports: No Symptoms Gastrointestinal: Reports: No Symptoms Genitourinary: Reports: No Symptoms Musculoskeletal: Reports: No Symptoms Skin: Reports: No Symptoms Neurological: Reports: No Symptoms Psychiatric: Reports: No Symptoms - Patient Data Vitals - Most Recent: Last Vital Signs Temp 38.0 C 02/02/19 09:58 Pulse 88 02/02/19 09:58 Resp 14 02/01/19 20:10 BP 139/38 L 02/02/19 09:58 Pulse Ox 91 L 02/02/19 09:58 Weight - Most Recent: 73.618 kg I&O - Last 24 hours: Intake & Output 02/01/19 02/02/19 02/02/19 22:59 06:59 14:59 Intake Total 1100 0 Output Total 1500 500 Balance -400 -500 DARELL Results - Last 24 hrs: Microbiology 01/29/19 17:05 Aerobic Blood Culture - Preliminary Blood NO GROWTH AFTER 3 DAYS Anaerobic Blood Culture - Final 01/30/19 15:45 Aerobic Blood Culture - Preliminary Blood NO GROWTH AFTER 2 DAYS Anaerobic Blood Culture - Preliminary NO GROWTH AFTER 2 DAYS Med Orders - Current: Current Medications Acetaminophen (Tylenol) 600 mg RECTAL Q4H PRN PRN Reason: Pain/Fever Last Admin: 02/02/19 09:47 Dose: 600 mg Famotidine (Pepcid) 20 mg IVPUSH BEDTIME [facility] Last Admin: 02/01/19 22:10 Dose: 20 mg Fentanyl (Duragesic) 12 mcg TRDERM Q72H [facility] Last Admin: 01/30/19 09:33 Dose: 12 mcg Haloperidol Lactate (Haldol 2 Mg/Ml Soln) 0.25 mg PO Q4H PRN PRN Reason: RESTLESSNESS Last Admin: 02/02/19 01:12 Dose: 0.25 mg Lorazepam (Ativan) 1 mg PO BID@0700,1900 [facility] Last Admin: 02/02/19 06:56 Dose: 1 mg Metoprolol Tartrate (Lopressor) 5 mg IVPUSH Q6H PRN PRN Reason: Tachycardia Miscellaneous Information (Remove Patch) 1 ea TRDERM Q72H [facility] Last Admin: 01/30/19 09:48 Dose: 1 ea Morphine Sulfate (Morphine 10 Mg/0.5 Ml Oral Syringe) 7.5 mg PO 0600,1000,1400 [facility] Last Admin: 02/02/19 09:46 Dose: 7.5 mg Morphine Sulfate (Morphine 10 Mg/0.5 Ml Oral Syringe) 7.5 mg PO TID@0300,1700, 2100 [facility] Last Admin: 02/02/19 04:00 Dose: 7.5 mg Sodium Chloride (Saline Flush) 10 ml IV ASDIRECTED PRN PRN Reason: Keep Vein Open Discontinued Medications Acetaminophen (Tylenol) 600 mg RECTAL NOW ONE Stop: 01/23/19 22:23 Last Admin: 01/23/19 22:28 Dose: 600 mg Acetaminophen (Tylenol) 600 mg RECTAL Q4H PRN PRN Reason: Pain/Fever Last Admin: 01/31/19 08:43 Dose: 600 mg Diltiazem HCl (Diltiazem) Confirm Administered Dose 125 mg .ROUTE .STK-MED ONE Stop: 01/24/19 06:19 Last Admin: 01/24/19 06:21 Dose: Not Given Famotidine (Pepcid) 40 mg IVPUSH BEDTIME [facility] Last Admin: 01/27/19 20:04 Dose: 40 mg Furosemide (Lasix) 20 mg IVPUSH NOW ONE Stop: 01/28/19 11:00 Last Admin: 01/28/19 11:25 Dose: 20 mg Haloperidol Lactate (Haldol 2 Mg/Ml Soln) 1 mg PO ONETIME ONE Stop: 01/31/19 09:58 Last Admin: 01/31/19 10:40 Dose: 1 mg Sodium Chloride (Normal Saline) 1,000 mls @ 999 mls/hr IV ONETIME ONE Stop: 01/23/19 17:18 Last Admin: 01/23/19 16:41 Dose: 999 mls/hr Sodium Chloride (Normal Saline) 1,000 mls @ 999 mls/hr IV ONETIME ONE Stop: 01/23/19 18:53 Last Admin: 01/23/19 18:01 Dose: 999 mls/hr Ceftriaxone Sodium 2 gm/ (Sodium Chloride) 100 mls @ 200 mls/hr IV ONETIME ONE Stop: 01/23/19 18:48 Last Admin: 01/23/19 18:39 Dose: 200 mls/hr Lactated Ringer's (Ringers, Lactated) 1,000 mls @ 999 mls/hr IV .BOLUS ONE Stop: 01/23/19 19:33 Last Admin: 01/23/19 19:57 Dose: 999 mls/hr Lactated Ringer's (Ringers, Lactated) 1,000 mls @ 999 mls/hr IV ASDIRECTED [facility] Stop: 01/23/19 21:33 Last Admin: 01/23/19 21:40 Dose: 999 mls/hr Lactated Ringer's (Ringers, Lactated) 1,000 mls @ 150 mls/hr IV ASDIRECTED [facility] Last Infusion: 01/24/19 07:36 Dose: 999 mls/hr Ceftriaxone Sodium 2 gm/ (Sodium Chloride) 100 mls @ 200 mls/hr IV Q24H [facility] Last Admin: 01/26/19 15:37 Dose: 200 mls/hr Diltiazem HCl 125 mg/ Sodium (Chloride) 125 mls @ 5 mls/hr IV TITRATE [facility]; Protocol Last Titration: 01/24/19 11:21 Dose: 0 mg/hr, 0 mls/hr Magnesium Sulfate 4 gm/ Premix 100 mls @ 25 mls/hr IV ONETIME ONE Stop: 01/24/19 07:38 Last Admin: 01/24/19 08:27 Dose: 25 mls/hr Dextrose/Water (Dextrose 5% In Water) 1,000 mls @ 100 mls/hr IV ASDIRECTED [facility] Last Admin: 01/24/19 18:03 Dose: 100 mls/hr Potassium Chloride 10 meq/ (Premix) 100 mls @ 100 mls/hr IV Q1H [facility] Stop: 01/24/19 21:59 Last Admin: 01/24/19 21:44 Dose: 100 mls/hr Potassium Chloride 20 meq/ (Dextrose/Water) 1,010 mls @ 151.5 mls/hr IV ASDIRECTED [facility] Dextrose/Water (Dextrose 5% In Water) 1,000 mls @ 150 mls/hr IV ASDIRECTED [facility] Potassium Chloride 10 meq/ (Premix) 100 mls @ 100 mls/hr IV Q1H [facility] Stop: 01/25/19 11:59 Last Admin: 01/25/19 14:05 Dose: 100 mls/hr Dextrose/Water (Dextrose 5% In Water) 1,000 mls @ 150 mls/hr IV ASDIRECTED [facility] Last Infusion: 01/25/19 23:30 Dose: Infused Lactated Ringer's (Ringers, Lactated) 1,000 mls @ 999 mls/hr IV .BOLUS ONE Stop: 01/25/19 15:09 Last Admin: 01/25/19 15:36 Dose: 999 mls/hr Dextrose/Water (Dextrose 5% In Water) 1,000 mls @ 150 mls/hr IV ASDIRECTED [facility] Dextrose/Water (Dextrose 5% In Water) 1,000 mls @ 150 mls/hr IV ASDIRECTED [facility] Last Admin: 01/27/19 13:58 Dose: 150 mls/hr Magnesium Sulfate 4 gm/ Premix 100 mls @ 25 mls/hr IV ONETIME ONE Stop: 01/26/19 10:00 Last Admin: 01/26/19 11:36 Dose: 25 mls/hr Potassium Chloride 10 meq/ (Premix) 100 mls @ 100 mls/hr IV Q1H [facility] Stop: 01/26/19 19:59 Last Admin: 01/26/19 17:10 Dose: Not Given Potassium Chloride 10 meq/ (Premix) 100 mls @ 100 mls/hr IV Q1H [facility] Stop: 01/26/19 23:59 Last Admin: 01/27/19 01:42 Dose: 100 mls/hr Ampicillin Sodium/Sulbactam (Sodium 3 gm/ Sodium Chloride) 100 mls @ 200 mls/ hr IV Q12H [facility] Last Admin: 02/01/19 22:11 Dose: 200 mls/hr Potassium Chloride/Dextrose/Sod Cl (D5 Ns With 20 Meq Kcl) 1,000 mls @ 75 mls/ hr IV ASDIRECTED [facility] Last Admin: 01/27/19 20:05 Dose: 75 mls/hr Potassium Chloride/Dextrose/Sod Cl (D5 Ns With 20 Meq Kcl) 1,000 mls @ 75 mls/ hr IV ASDIRECTED [facility] Stop: 01/29/19 11:00 Last Admin: 01/28/19 23:17 Dose: 75 mls/hr Potassium Chloride/Dextrose/Sod Cl (D5 Ns With 20 Meq Kcl) 1,000 mls @ 75 mls/ hr IV ASDIRECTED [facility] Stop: 01/30/19 11:00 Dextrose/Water (Dextrose 5% In Water) 1,000 mls @ 75 mls/hr IV ASDIRECTED [facility] Stop: 01/29/19 22:59 Last Admin: 01/29/19 16:18 Dose: 75 mls/hr Magnesium Sulfate 2 gm/ Premix 50 mls @ 25 mls/hr IV ONETIME ONE Stop: 01/30/19 13:59 Last Admin: 01/30/19 14:36 Dose: 25 mls/hr Potassium Chloride 20 meq/ (Dextrose/Water) 1,010 mls @ 75 mls/hr IV Q13H [facility] Stop: 02/01/19 06:00 Last Admin: 01/31/19 17:42 Dose: 75 mls/hr Potassium Chloride 20 meq/ (Dextrose/Water) 1,010 mls @ 125 mls/hr IV ONETIME ONE Stop: 02/01/19 16:49 Last Admin: 02/01/19 10:19 Dose: 125 mls/hr Lorazepam (Ativan) 0.25 mg IVPUSH Q6H PRN PRN Reason: Anxiety Last Admin: 01/29/19 07:52 Dose: 0.25 mg Lorazepam (Ativan) 1 mg IVPUSH ONETIME ONE Stop: 01/30/19 11:03 Last Admin: 01/30/19 11:16 Dose: 1 mg Lorazepam (Ativan) 1 mg PO DAILY [facility] Last Admin: 01/31/19 12:14 Dose: 1 mg Methylprednisolone Sodium Succinate (Solu-Medrol) 40 mg IVPUSH DAILY [facility] Last Admin: 01/29/19 08:06 Dose: 40 mg Metoprolol Tartrate (Lopressor) Confirm Administered Dose 5 mg .ROUTE .STK-MED ONE Stop: 01/24/19 05:57 Last Admin: 01/24/19 05:58 Dose: 5 mg Morphine Sulfate (Morphine) 1 mg IVPUSH ONETIME ONE Stop: 01/24/19 09:08 Last Admin: 01/24/19 09:17 Dose: 1 mg Morphine Sulfate (Morphine) 1 mg IVPUSH Q2H PRN PRN Reason: Pain (moderate 4-6) Last Admin: 01/28/19 11:20 Dose: 1 mg Morphine Sulfate (Morphine 10 Mg/0.5 Ml Oral Syringe) 2.5 mg SL Q6H PRN PRN Reason: Pain (moderate 4-6) Last Admin: 01/29/19 08:04 Dose: 2.5 mg Morphine Sulfate (Morphine 10 Mg/0.5 Ml Oral Syringe) 2.5 mg SL Q6H PRN PRN Reason: Pain (moderate 4-6) Morphine Sulfate (Morphine 10 Mg/0.5 Ml Oral Syringe) 5 mg SL Q4H PRN PRN Reason: Pain (moderate 4-6) Last Admin: 01/29/19 16:13 Dose: 2.5 mg Morphine Sulfate (Morphine 20 Mg/Ml Soln) 5 mg SL Q4H [facility] Morphine Sulfate (Morphine 10 Mg/0.5 Ml Oral Syringe) 7.5 mg SL Q4H PRN PRN Reason: Pain (moderate 4-6) Last Admin: 01/30/19 09:30 Dose: 7.5 mg Morphine Sulfate (Morphine 10 Mg/0.5 Ml Oral Syringe) 7.5 mg PO Q4HR [facility] Last Admin: 01/30/19 16:04 Dose: 7.5 mg Morphine Sulfate (Morphine 10 Mg/0.5 Ml Oral Syringe) 5 mg PO Q6H [facility] Last Admin: 01/31/19 15:31 Dose: 5 mg Morphine Sulfate (Morphine 10 Mg/0.5 Ml Oral Syringe) 7.5 mg PO ONETIME ONE Stop: 01/31/19 08:36 Last Admin: 01/31/19 08:38 Dose: 7.5 mg Morphine Sulfate (Morphine 10 Mg/0.5 Ml Oral Syringe) 7.5 mg PO 1700,2100 [facility] Last Admin: 01/31/19 21:57 Dose: 7.5 mg Morphine Sulfate (Morphine 10 Mg/0.5 Ml Oral Syringe) 5 mg PO DAILY@0300 [facility] Last Admin: 02/01/19 03:49 Dose: 5 mg - Exam Quality Assessment: Reports: Urine Catheter, DVT Prophylaxis General: Reports: Sedated HEENT: Reports: Pupils Equal, Pupils Reactive, EOMI Neck: Reports: No JVD Lungs: Reports: Normal Respiratory Effort Cardiovascular: Reports: Regular Rate, Regular Rhythm GI/Abdominal Exam: Normal Bowel Sounds, Soft, Non-Tender, No Organomegaly, No Distention (Female) Exam: Deferred Rectal (Female) Exam: Deferred Extremities: Normal Inspection, Non-Tender, Normal Capillary Refill Skin: Reports: Warm Neurological: Reports: No New Focal Deficit
== END 2019-02-02 14:08 | DRG 690 ==
LOC: JD.ED 16:07 → SUPCPDRO 16:07 → JD.MS 18:47 → JD.ICU 01-24 06:13 → JD.MS 01-24 13:30
PROVIDERS: ADMIT Internal Medicine Cardiovascular Disease; ATTEND Internal Medicine Cardiovascular Disease
DX: N30.00 Acute cystitis without hematuria (principal); N39.0 Urinary tract infection, site not specified; N17.9 Acute kidney failure, unspecified; I13.0 Hypertensive heart and chronic kidney disease with heart failure and stage 1 through stage 4 chronic kidney disease, or unspecified chronic kidney disease; E87.0 Hyperosmolality and hypernatremia; I50.9 Heart failure, unspecified; E78.00 Pure hypercholesterolemia, unspecified; D64.9 Anemia, unspecified; R62.7 Adult failure to thrive; E87.6 Hypokalemia; E78.5 Hyperlipidemia, unspecified; I48.91 Unspecified atrial fibrillation; B96.1 Klebsiella pneumoniae [K. pneumoniae] as the cause of diseases classified elsewhere; B95.2 Enterococcus as the cause of diseases classified elsewhere; K59.09 Other constipation; K21.9 Gastro-esophageal reflux disease without esophagitis; N18.9 Chronic kidney disease, unspecified; R41.82 Altered mental status, unspecified; R53.1 Weakness; R53.83 Other fatigue; R74.8 Abnormal levels of other serum enzymes; E86.0 Dehydration; F03.90 Unspecified dementia, unspecified severity, without behavioral disturbance, psychotic disturbance, mood disturbance, and anxiety; Z66 Do not resuscitate; Z51.5 Encounter for palliative care; Z88.2 Allergy status to sulfonamides; Z88.8 Allergy status to other drugs, medicaments and biological substances; Z79.899 Other long term (current) drug therapy; Z79.01 Long term (current) use of anticoagulants; Z87.01 Personal history of pneumonia (recurrent)
CPT/HCPCS: 36415; 70450; 71045; 80053; 81001; 83615; 83735; 84484; 85007; 85027; 87086; 87088 ×3; 87186 ×3; 93005; 96361; 96374; 99285; J0696; J7030; J7040 ×2; 51701; 51702; 51798; 80048; 83605; 85025; 86140; 87040; 87077; 87641; 87804; 93010; A9270-GY; J0295; J2060; J2270; J2920; J3475; J3480; J3490; J7060; J7120